=== PATIENT | male | born 1975 | race Caucasian/White ===

== ENCOUNTER 2020-11-24 15:52 | Inpatient (IN) | payer OTHER ==
--- NOTE | 2020-11-24 17:46 | XR ---
EXAMINATION TYPE: XR chest 2V DATE OF EXAM: 11/24/2020 COMPARISON: NONE HISTORY: Short of breath TECHNIQUE: 2 views FINDINGS: There is diffuse pulmonary interstitial and airspace edema. Heart size is normal. There is probably enlargement of the azygos lymph node. There is some blunting of the costophrenic angles. IMPRESSION: Bilateral pneumonia with pleural effusions. Normal sized heart. This could relate to RDS. Heart failure not excluded.
--- NOTE | 2020-11-24 17:53 | ED ---
SOB HPI - General Chief Complaint: Shortness of Breath Stated Complaint: Sent by [facility] - Covid+, Low O2 Time Seen by Provider: 11/24/20 17:30 Source: patient, RN notes reviewed Mode of arrival: ambulatory Limitations: no limitations - History of Present Illness Initial Comments: Patient is a 45-year-old male presented to the emergency department complaining of shortness of breath. He noted that he can initiate an urgent care after testing positive for covid area he noted that while he was there before the urgent care swabbed him and then put his swab on the counter and his tests return positive within several seconds. He noted that he wanted to come to the ER just to get reevaluated. He does have a history of asthma and noted that the last several days he has had a more difficult time catching his breath. He did note that her on this time he-year-old with a temperature drops and the air becomes dry he does have difficulties. He noted that he doesn't follow-up with primary care regularly even though he does have a history of asthma and diabetes. He denied any chest pain or dyspnea on exertion fever fatigue chills nausea vomiting diarrhea constipation - Related Data Allergies Allergy/AdvReac Type Severity Reaction Status Date / Time No Known Allergies Allergy Verified 11/24/20 16:26 Review of Systems ROS Statement: Those systems with pertinent positive or pertinent negative responses have been documented in the HPI. ROS Other: All systems not noted in ROS Statement are negative. Past Medical History Past Medical History: Asthma, Diabetes Mellitus, Hypertension History of Any Multi-Drug Resistant Organisms: None Reported Past Surgical History: No Surgical Hx Reported Smoking Status: Never smoker Past Alcohol Use History: None Reported Past Drug Use History: None Reported General Exam Limitations: no limitations General appearance: alert, in no apparent distress Head exam: Present: atraumatic, normocephalic, normal inspection Eye exam: Present: normal appearance, PERRL, EOMI. Absent: scleral icterus, conjunctival injection, periorbital swelling ENT exam: Present: normal exam, mucous membranes moist Neck exam: Present: normal inspection. Absent: tenderness, meningismus, lymphadenopathy Respiratory exam: Present: normal lung sounds bilaterally, other (Nasal cannula and with 2 L/m following). Absent: respiratory distress, wheezes, rales, rhonchi, stridor Cardiovascular Exam: Present: regular rate, normal rhythm, normal heart sounds. Absent: systolic murmur, diastolic murmur, rubs, gallop, clicks GI/Abdominal exam: Present: soft, normal bowel sounds. Absent: distended, tenderness, guarding, rebound, rigid Extremities exam: Present: normal inspection, full ROM, normal capillary refill. Absent: tenderness, pedal edema, joint swelling, calf tenderness Back exam: Present: normal inspection Neurological exam: Present: alert, oriented X3, CN II-XII intact Psychiatric exam: Present: normal affect, normal mood Skin exam: Present: warm, dry, intact, normal color. Absent: rash Course Vital Signs 11/24/20 11/24/20 16:22 17:38 Temperature 98.8 F Pulse Rate 88 88 Respiratory 18 18 Rate Blood Pressure 133/82 O2 Sat by Pulse 89 L 90 L Oximetry Medical Decision Making - Medical Decision Making 45-year-old male complaining of shortness of breath, after positive Covid test at urgent care. Chest x-ray ordered, basic labs ordered. Nasal cannula 2 L/m ordered. Chest x-ray came back with bilateral pneumonia and 2 small pleural effusions. Coitus was positive. Case discussed with Dr. Cedeño, was decided to admit patient to the hospital for further treatment. - Lab Data Result diagrams: 11/24/20 17:52 11/24/20 17:52 Lab Results 11/24/20 11/24/20 11/24/20 Range/Units 17:52 17:52 18:06 WBC 4.0 (3.8-10.6) k/uL RBC 4.79 (4.30-5.90) m/uL Hgb 14.8 (13.0-17.5) gm/dL Hct 44.2 (39.0-53.0) % MCV 92.3 (80.0-100.0) fL MCH 30.9 (25.0-35.0) pg MCHC 33.5 (31.0-37.0) g/dL RDW 13.2 (11.5-15.5) % Plt Count 190 (150-450) k/uL MPV 8.7 Neutrophils % 80 % Lymphocytes % 14 % Monocytes % 4 % Eosinophils % 1 % Basophils % 1 % Neutrophils # 3.2 (1.3-7.7) k/uL Lymphocytes # 0.6 L (1.0-4.8) k/uL Monocytes # 0.2 (0-1.0) k/uL Eosinophils # 0.0 (0-0.7) k/uL Basophils # 0.0 (0-0.2) k/uL Sodium 126 L (137-145) mmol/L Potassium 4.7 (3.5-5.1) mmol/L Chloride 92 L (98-107) mmol/L Carbon Dioxide 26 (22-30) mmol/L Anion Gap 8 mmol/L BUN 41 H (9-20) mg/dL Creatinine 1.65 H (0.66-1.25) mg/dL Est GFR (CKD-EPI)AfAm 57 (>60 ml/min/1.73 sqM) Est GFR (CKD-EPI)NonAf 50 (>60 ml/min/1.73 sqM) Glucose 398 H (74-99) mg/dL Calcium 7.4 L (8.4-10.2) mg/dL Total Bilirubin 0.4 (0.2-1.3) mg/dL AST 50 (17-59) U/L ALT 24 (4-49) U/L Alkaline Phosphatase 73 (38-126) U/L Total Protein 5.5 L (6.3-8.2) g/dL Albumin 2.9 L (3.5-5.0) g/dL Coronavirus (PCR) Detected A (Not Detectd) - Radiology Data Radiology results: report reviewed, image reviewed Bilateral pneumonia with pleural effusions normal-sized heart. This could relate RDS. Heart failure not excluded. Disposition Clinical Impression: COVID-19, Bilateral pneumonia, Pleural effusion, Dyspnea Disposition: ADMITTED IP TO THIS HOSP Condition: Stable Is patient prescribed a controlled substance at d/c from ED?: No Referrals: Norris Franco MD [Primary Care Provider] - 1-2 days Time of Disposition: 18:45
[2020-11-24 18:02] LABS: Basophils % (A) 1 %; Eosinophils % (A) 1 %; HCT 44.2 % (39.0-53.0); HGB 14.8 gm/dL (13.0-17.5); Lymphocytes # (A) 0.6 k/uL (1.0-4.8); Lymphocytes % (A) 14 %; MCH 30.9 pg (25.0-35.0); MCHC 33.5 g/dL (31.0-37.0); MCV 92.3 fL (80.0-100.0); Mean Platelet Volume 8.7; Monocytes # (A) 0.2 k/uL (0-1.0); Monocytes % (A) 4 %; Neutrophils # (A) 3.2 k/uL (1.3-7.7); Neutrophils % (A) 80 %; Platelet Count 190 k/uL (150-450); RBC 4.79 m/uL (4.30-5.90); RDW 13.2 % (11.5-15.5)
[2020-11-24 18:11] LABS: Albumin 2.9 g/dL (3.5-5.0); Calcium 7.4 mg/dL (8.4-10.2); Potassium 4.7 mmol/L (3.5-5.1); Total Bilirubin 0.4 mg/dL (0.2-1.3); Total Protein 5.5 g/dL (6.3-8.2)
[2020-11-24] MEDS ORDERED: ONDANSETRON 4 MG/2 ML VIAL IVP PRN (18:37)
[2020-11-24] MEDS ORDERED: NALOXONE 0.4 MG/ML 1 ML VIAL IV PRN (18:37)
[2020-11-24] MEDS ORDERED: SODIUM CHLORIDE 0.9% 1,000 ML IV SCH (18:45)
[2020-11-24 20:49] LABS: INR 0.9 (<1.2); Partial Thromboplastin Time 26.8 sec (22.0-30.0); Prothrombin Time 10.1 sec (9.0-12.0)
[2020-11-24] MEDS ORDERED: ENOXAPARIN 40 MG/0.4 ML SYRINGE SQ SCH (21:00)
[2020-11-24 21:02] LABS: D-Dimer 1.17 mg/L FEU (<0.60)
[2020-11-24 21:11] LABS: C Reactive Protein 89.3 mg/L (<10.0); Magnesium 2.3 mg/dL (1.6-2.3)
[2020-11-24] MEDS: ALBUTEROL HFA INHALER INHALATION SCH (21:33)
[2020-11-24 21:57] LABS: Glucose,Whole Blood 340 mg/dL (75-99)
[2020-11-24] MEDS: ASCORBIC ACID 500 MG TAB PO SCH (22:02)
[2020-11-24] MEDS: CHOLECALCIFEROL 25 MCG (1000 IU) TABLET PO SCH (22:03)
[2020-11-24] MEDS: dexAMETHasone 2 MG TAB PO SCH (22:03)
[2020-11-24] MEDS: ACETAMINOPHEN TAB 325 MG TAB PO PRN (22:07)
[2020-11-24] MEDS: INSULIN ASPART (NovoLOG) 100 UNIT/ML VIAL SQ SCH (22:27)
--- NOTE | 2020-11-24 22:56 | CT ---
EXAMINATION TYPE: CT chest angio for PE DATE OF EXAM: 11/24/2020 COMPARISON: None HISTORY: Elevated d-dimer and covid +. CT DLP: 521.1 mGycm Automated exposure control for dose reduction was used. CONTRAST: Performed with IV Contrast, patient injected with 70ml mL of Isovue 370. There are 3-D post processed images. There is extensive interstitial and airspace and nodular infiltrate throughout the lungs. There are b ilateral [id number] pleural effusions. Heart size is normal. There is no pericardial effusion. Thoracic aorta is intact. There is no aneurysm or dissection. There is normal contrast opacification of the pulmonary arteries. There are no filling defects. There are a few enlarged mediastinal and bronchial lymph nodes up to 1.3 cm. The bony thorax is intact. The upper abdominal soft tissues are intact. IMPRESSION: No evidence of pulmonary embolism. Extensive bilateral pulmonary infiltrates and bilateral pleural ef fusions consistent with pneumonia.
[2020-11-24] MEDS: MELATONIN 5 MG TABLET PO SCH (23:29)
[2020-11-25] MEDS ORDERED: ALBUTEROL HFA INHALER INHALATION SCH (02:00)
[2020-11-25 03:00] LABS: Ferritin 937.8 ng/mL (22.0-322.0)
[2020-11-25 03:03] LABS: Basophils % (A) 0 %; Eosinophils % (A) 0 %; HCT 42.6 % (39.0-53.0); HGB 14.2 gm/dL (13.0-17.5); Lymphocytes # (A) 0.3 k/uL (1.0-4.8); Lymphocytes % (A) 8 %; MCH 30.8 pg (25.0-35.0); MCHC 33.3 g/dL (31.0-37.0); MCV 92.3 fL (80.0-100.0); Monocytes # (A) 0.1 k/uL (0-1.0); Monocytes % (A) 4 %; Neutrophils # (A) 3.5 k/uL (1.3-7.7); Neutrophils % (A) 87 %; Platelet Count 158 k/uL (150-450); RBC 4.62 m/uL (4.30-5.90); RDW 13.2 % (11.5-15.5)
[2020-11-25 03:31] LABS: D-Dimer 0.91 mg/L FEU (<0.60)
[2020-11-25] MEDS: INSULIN ASPART (NovoLOG) 100 UNIT/ML VIAL SQ SCH ×4 (06:32→21:28)
[2020-11-25 06:37] LABS: Glucose,Whole Blood 351 mg/dL (75-99)
[2020-11-25] MEDS: ACETAMINOPHEN TAB 325 MG TAB PO PRN ×3 (06:45→20:33)
--- NOTE | 2020-11-25 08:09 | XR ---
EXAMINATION TYPE: XR chest 1V DATE OF EXAM: 11/25/2020 COMPARISON: 11/24/2020 HISTORY: 45 year-old male shortness of breath TECHNIQUE: Single frontal view of the chest is obtained. FINDINGS: Heart normal size. The lateral airspace disease, right greater than left lung with a small left effus ion, not significantly changed. IMPRESSION: Right greater than left diffuse bilateral airspace disease and a small left effusion. No significant change.
[2020-11-25] MEDS: CHOLECALCIFEROL 25 MCG (1000 IU) TABLET PO SCH (08:18)
[2020-11-25] MEDS: ASCORBIC ACID 500 MG TAB PO SCH ×3 (08:18→21:41)
[2020-11-25] MEDS: dexAMETHasone 2 MG TAB PO SCH (08:18)
[2020-11-25] MEDS ORDERED: FUROSEMIDE 10 MG/ML 4 ML VIAL IV STA (08:27)
[2020-11-25] MEDS: ALBUTEROL HFA INHALER INHALATION SCH ×4 (08:49→20:03)
--- NOTE | 2020-11-25 09:19 | P.CNPUL ---
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, patient was hypoxic noted to have a saturation of 88-89% was admitted into the hospital with shortness of breath, significant labs are sodium of 126 BUN/creatinine is 4111.65, d-dimer is elevated, bilateral pneumonia with pleural effusion seen on chest x-ray, bilateral pleural effusion and extensive bilateral pulmonary infiltrate seen consistent with pneumonia on the computed tomography scan negative for pulmonary embolism, chest x-ray performed today continue show diffuse disease right more than the left, currently patient is on airvo 40 L, he is comfortable on that with the saturation 94-95% Review of Systems All systems: negative Past Medical History Past Medical History: Asthma, Diabetes Mellitus, Hypertension History of Any Multi-Drug Resistant Organisms: None Reported Past Surgical History: No Surgical Hx Reported Past Anesthesia/Blood Transfusion Reactions: No Reported Reaction Past Psychological History: No Psychological Hx Reported Smoking Status: Never smoker Past Alcohol Use History: None Reported Past Drug Use History: None Reported - Past Family History Father Family Medical History: No Reported History Mother Additional Family Medical History / Comment(s): glaucoma, manic depression, 2006 Medications and Allergies Home Medications Medication Instructions Recorded Confirmed Type No Known Home Medications 11/24/20 11/24/20 History Allergies Allergy/AdvReac Type Severity Reaction Status Date / Time No Known Allergies Allergy Verified 11/24/20 18:56 Physical Exam Vitals: Vital Signs Temp Pulse Pulse Resp BP BP Pulse Ox 11/25/20 08:09 98.3 F 78 20 116/73 90 L 11/25/20 03:23 98.5 F 84 18 116/76 92 L 11/25/20 02:00 95 18 11/25/20 00:00 100.1 F H 18 11/24/20 22:56 101.6 F H 95 18 137/80 92 L 11/24/20 22:04 102.2 F H 103 H 24 144/82 94 L 11/24/20 18:48 89 18 139/94 93 L 11/24/20 17:38 88 18 90 L 11/24/20 16:22 98.8 F 88 18 133/82 89 L Intake and Output 11/24/20 11/25/20 11/25/20 22:59 06:59 14:59 Intake Total 150 Balance 150 Intake: IV 150 Sodium Chloride 0.9% 1, 150 000 ml @ 75 mls/hr IV . [id number] [facility] Rx#:[id number] Other: Voiding Method Toilet Toilet Weight 92.986 kg 93 kg - Constitutional General appearance: average body habitus, cooperative, disheveled - EENT Eyes: EOMI, PERRLA - Neck Neck: normal ROM Carotids: bilateral: upstroke normal Thyroid: bilateral: normal size - Respiratory Respiratory: bilateral: diminished, rales - Cardiovascular Rhythm: regular Heart sounds: normal: S1, S2 - Gastrointestinal General gastrointestinal: normal bowel sounds - Neurologic Neurologic: CNII-XII intact - Musculoskeletal Musculoskeletal: gait normal, generalized weakness, strength equal bilaterally - Psychiatric Psychiatric: A&O x's 3, appropriate affect, intact judgment & insight Results - Laboratory Findings CBC and BMP: 11/25/20 02:40 11/24/20 17:52 PT/INR, D-dimer PT 10.1 sec (9.0-12.0) 11/24/20 20:27 INR 0.9 (<1.2) 11/24/20 20:27 D-Dimer 0.91 mg/L FEU (<0.60) H 11/25/20 02:40 Abnormal lab findings: Abnormal Labs 11/24/20 11/24/20 11/24/20 17:52 17:52 17:52 Lymphocytes # 0.6 L Fibrinogen D-Dimer Sodium 126 L Chloride 92 L BUN 41 H Creatinine 1.65 H Glucose 398 H POC Glucose (mg/dL) Calcium 7.4 L Ferritin 937.8 H Lactate Dehydrogenase 823 H Troponin I C-Reactive Protein 89.3 H Total Protein 5.5 L Albumin 2.9 L Procalcitonin Coronavirus (PCR) 11/24/20 11/24/20 11/24/20 17:52 18:06 20:27 Lymphocytes # Fibrinogen 657 H D-Dimer 1.17 H Sodium Chloride BUN Creatinine Glucose POC Glucose (mg/dL) Calcium Ferritin Lactate Dehydrogenase Troponin I C-Reactive Protein Total Protein Albumin Procalcitonin 0.54 H Coronavirus (PCR) Detected A 11/24/20 11/24/20 11/24/20 20:27 21:55 23:32 Lymphocytes # Fibrinogen D-Dimer Sodium Chloride BUN Creatinine Glucose POC Glucose (mg/dL) 340 H Calcium Ferritin Lactate Dehydrogenase Troponin I 0.063 H* 0.079 H* C-Reactive Protein Total Protein Albumin Procalcitonin Coronavirus (PCR) 11/25/20 11/25/20 11/25/20 02:40 02:40 02:40 Lymphocytes # 0.3 L Fibrinogen 575 H D-Dimer 0.91 H Sodium Chloride BUN Creatinine Glucose POC Glucose (mg/dL) Calcium Ferritin Lactate Dehydrogenase Troponin I 0.095 H* C-Reactive Protein Total Protein Albumin Procalcitonin Coronavirus (PCR) 11/25/20 06:29 Lymphocytes # Fibrinogen D-Dimer Sodium Chloride BUN Creatinine Glucose POC Glucose (mg/dL) 351 H Calcium Ferritin Lactate Dehydrogenase Troponin I C-Reactive Protein Total Protein Albumin Procalcitonin Coronavirus (PCR) - Diagnostic Findings Chest x-ray: report reviewed, image reviewed CT scan - chest: report reviewed, image reviewed Assessment and Plan Assessment: Acute hypoxic respiratory failure due to covert 19 pneumonia Associated bacterial pneumonia secondary cannot be excluded Acute kidney injury Uncontrolled diabetes Elevated d-dimer History of hypertension hypertensive cardiovascular disease Bilateral pleural effusion Plan: Continue patient on high flow oxygen with airvo, aim for saturation 90% and above Decadron 6 mg IV q12 Elevated d-dimer may very well be related to mitral thromboembolism we will increase the Decadron to 40 mg IV every 12 IV REMdesivir Convalescent plasma Monitor clinical course closely further recommendations pending plan of care as per clinical response of the patient Monitor renal functions closely if creatinine continued to rise may need to stop the VERONA inhibitor Time with Patient: Greater than 30
[2020-11-25] MEDS: DEXAMETHASONE SOD PHOSPHATE 10 MG/ML 1 ML VIAL IV SCH ×2 (09:36→21:41)
[2020-11-25] MEDS: AZITHROMYCIN 500 MG TAB PO SCH (09:45)
[2020-11-25] MEDS: METOPROLOL TARTRATE 12.5 MG TAB PO SCH ×2 (09:45→21:40)
[2020-11-25] MEDS: ASPIRIN 81 MG PO SCH (09:45)
[2020-11-25] MEDS: SPIRONOLACTONE 25 MG TAB PO SCH (09:45)
[2020-11-25] MEDS: ENOXAPARIN 40 MG/0.4 ML SYRINGE SQ SCH ×2 (09:45→21:41)
--- NOTE | 2020-11-25 10:13 | P.HPIM ---
History of Present Illness H&P Date: 11/25/20 (0800) Chief Complaint: Shortness of breath with associated nonproductive cough for five day durati 45-year-old male presented to the emergency department with shortness of breath with associated productive cough for five day duration. [facility] found to have a positive Cov[facility] tests, went to the emergency department for further diagnostic workup chest x-ray revealed bilateral pneumonia with pleural effusions, positive Covid tests, elevated inflammatory markers. Patient has significant medical history of asthma, diabetes mellitus type II [id number], hypertension, and morbid obesity. Patient endorses shortness of breath at rest, dyspnea with exertion, chest discomfort, fever, chills, nausea and diarrhea. Patient currently on airvo at 40 liters with oxygen saturation's of 94 to 95%. Review of Systems Constitutional: Reports fatigue, Reports fever, Reports weakness Ears, nose, mouth and throat: Reports headache Cardiovascular: Reports dyspnea on exertion, Reports shortness of breath Respiratory: Reports cough (Nonproductive), Reports pain on inspiration Gastrointestinal: Reports diarrhea, Reports nausea Musculoskeletal: Reports muscle weakness Neurological: Reports weakness Psychiatric: Reports insomnia Past Medical History Past Medical History: Asthma, Diabetes Mellitus, Hypertension History of Any Multi-Drug Resistant Organisms: None Reported Past Surgical History: No Surgical Hx Reported Past Anesthesia/Blood Transfusion Reactions: No Reported Reaction Past Psychological History: No Psychological Hx Reported Smoking Status: Never smoker Past Alcohol Use History: None Reported Past Drug Use History: None Reported - Past Family History Father Family Medical History: No Reported History Mother Family Medical History: No Reported History Additional Family Medical History / Comment(s): glaucoma, manic depression, 2006 Medications and Allergies Home Medications and Allergies Comment(s): Medications and allergies reviewed Home Medications Medication Instructions Recorded Confirmed Type No Known Home Medications 11/24/20 11/24/20 History Allergies Allergy/AdvReac Type Severity Reaction Status Date / Time No Known Allergies Allergy Verified 11/24/20 18:56 Physical Exam Vitals: Vital Signs Temp Pulse Pulse Resp BP BP Pulse Ox 11/25/20 08:09 98.3 F 78 20 116/73 90 L 11/25/20 03:23 98.5 F 84 18 116/76 92 L 11/25/20 02:00 95 18 11/25/20 00:00 100.1 F H 18 11/24/20 22:56 101.6 F H 95 18 137/80 92 L 11/24/20 22:04 102.2 F H 103 H 24 144/82 94 L 11/24/20 18:48 89 18 139/94 93 L 11/24/20 17:38 88 18 90 L 11/24/20 16:22 98.8 F 88 18 133/82 89 L Intake and Output 11/24/20 11/25/20 11/25/20 22:59 06:59 14:59 Intake Total 150 Balance 150 Intake: IV 150 Sodium Chloride 0.9% 1, 150 000 ml @ 75 mls/hr IV . [id number] [facility] Rx#:[id number] Other: Voiding Method Toilet Toilet Weight 92.986 kg 93 kg - Constitutional Moderate distress General appearance: cooperative - EENT Eyes: edentulous, PERRLA ENT: pharyngeal erythema Ears: bilateral: normal - Neck Neck: normal ROM Carotids: bilateral: upstroke normal Thyroid: bilateral: normal size - Respiratory Respiratory: bilateral: rales (Course posterior lung roblero), rhonchi (Anterior lung roblero) - Cardiovascular Normal sinus rhythm Heart rate: 74 Rhythm: regular Heart sounds: normal: S1, S2 radial pulse Peripheral Pulses: bilateral: Normal dorsalis pedis Peripheral Pulses: bilateral: Normal - Gastrointestinal General gastrointestinal: normal bowel sounds - Integumentary Integumentary: decreased turgor - Neurologic Neurologic: CNII-XII intact - Musculoskeletal Musculoskeletal: generalized weakness - Psychiatric Psychiatric: A&O x's 3, appropriate affect, intact judgment & insight Results CBC & Chem 7: 11/25/20 02:40 11/24/20 17:52 Labs: Abnormal Lab Results - Last 24 Hours (Table) 11/24/20 11/24/20 11/24/20 Range/Units 17:52 17:52 17:52 Lymphocytes # 0.6 L (1.0-4.8) k/uL Fibrinogen (200-500) mg/dL D-Dimer (<0.60) mg/L FEU Sodium 126 L (137-145) mmol/L Chloride 92 L (98-107) mmol/L BUN 41 H (9-20) mg/dL Creatinine 1.65 H (0.66-1.25) mg/dL Glucose 398 H (74-99) mg/dL POC Glucose (mg/dL) (75-99) mg/dL Calcium 7.4 L (8.4-10.2) mg/dL Ferritin 937.8 H (22.0-322.0) ng/mL Lactate Dehydrogenase 823 H (313-618) U/L Troponin I (0.000-0.034) ng/mL C-Reactive Protein 89.3 H (<10.0) mg/L Total Protein 5.5 L (6.3-8.2) g/dL Albumin 2.9 L (3.5-5.0) g/dL Procalcitonin (0.02-0.09) ng/mL Coronavirus (PCR) (Not Detectd) 11/24/20 11/24/20 11/24/20 Range/Units 17:52 18:06 20:27 Lymphocytes # (1.0-4.8) k/uL Fibrinogen 657 H (200-500) mg/dL D-Dimer 1.17 H (<0.60) mg/L FEU Sodium (137-145) mmol/L Chloride (98-107) mmol/L BUN (9-20) mg/dL Creatinine (0.66-1.25) mg/dL Glucose (74-99) mg/dL POC Glucose (mg/dL) (75-99) mg/dL Calcium (8.4-10.2) mg/dL Ferritin (22.0-322.0) ng/mL Lactate Dehydrogenase (313-618) U/L Troponin I (0.000-0.034) ng/mL C-Reactive Protein (<10.0) mg/L Total Protein (6.3-8.2) g/dL Albumin (3.5-5.0) g/dL Procalcitonin 0.54 H (0.02-0.09) ng/mL Coronavirus (PCR) Detected A (Not Detectd) 11/24/20 11/24/20 11/24/20 Range/Units 20:27 21:55 23:32 Lymphocytes # (1.0-4.8) k/uL Fibrinogen (200-500) mg/dL D-Dimer (<0.60) mg/L FEU Sodium (137-145) mmol/L Chloride (98-107) mmol/L BUN (9-20) mg/dL Creatinine (0.66-1.25) mg/dL Glucose (74-99) mg/dL POC Glucose (mg/dL) 340 H (75-99) mg/dL Calcium (8.4-10.2) mg/dL Ferritin (22.0-322.0) ng/mL Lactate Dehydrogenase (313-618) U/L Troponin I 0.063 H* 0.079 H* (0.000-0.034) ng/mL C-Reactive Protein (<10.0) mg/L Total Protein (6.3-8.2) g/dL Albumin (3.5-5.0) g/dL Procalcitonin (0.02-0.09) ng/mL Coronavirus (PCR) (Not Detectd) 11/25/20 11/25/20 11/25/20 Range/Units 02:40 02:40 02:40 Lymphocytes # 0.3 L (1.0-4.8) k/uL Fibrinogen 575 H (200-500) mg/dL D-Dimer 0.91 H (<0.60) mg/L FEU Sodium (137-145) mmol/L Chloride (98-107) mmol/L BUN (9-20) mg/dL Creatinine (0.66-1.25) mg/dL Glucose (74-99) mg/dL POC Glucose (mg/dL) (75-99) mg/dL Calcium (8.4-10.2) mg/dL Ferritin (22.0-322.0) ng/mL Lactate Dehydrogenase (313-618) U/L Troponin I 0.095 H* (0.000-0.034) ng/mL C-Reactive Protein (<10.0) mg/L Total Protein (6.3-8.2) g/dL Albumin (3.5-5.0) g/dL Procalcitonin (0.02-0.09) ng/mL Coronavirus (PCR) (Not Detectd) 11/25/20 Range/Units 06:29 Lymphocytes # (1.0-4.8) k/uL Fibrinogen (200-500) mg/dL D-Dimer (<0.60) mg/L FEU Sodium (137-145) mmol/L Chloride (98-107) mmol/L BUN (9-20) mg/dL Creatinine (0.66-1.25) mg/dL Glucose (74-99) mg/dL POC Glucose (mg/dL) 351 H (75-99) mg/dL Calcium (8.4-10.2) mg/dL Ferritin (22.0-322.0) ng/mL Lactate Dehydrogenase (313-618) U/L Troponin I (0.000-0.034) ng/mL C-Reactive Protein (<10.0) mg/L Total Protein (6.3-8.2) g/dL Albumin (3.5-5.0) g/dL Procalcitonin (0.02-0.09) ng/mL Coronavirus (PCR) (Not Detectd) Comments: Echocardiogram pending Chest x-ray: report reviewed CT scan - chest: report reviewed Thrombosis Risk Factor Assmnt - Choose All That Apply Any of the Below Risk Factors Present?: Yes Each Factor Represents 1 point: Age 41-60 years, Obesity (BMI >25) Other congenital or acquired thrombophilia - If yes, enter type in comment: No Thrombosis Risk Factor Assessment Total Risk Factor Score: 2 Thrombosis Risk Factor Assessment Level: Low Risk Assessment and Plan Assessment: Acute hypoxic respiratory failure due to Covid 19 pneumonia possible bacteria pneumonia acute kidney injury diabetes mellitus type two elevated inflammatory markers bilateral pleural effusions Plan: Covid 19 pneumonia continue corticosteroids, vitamin supplements, IV remdesivir, convalescent plasma; consultation with pulmonary critical care for recommendations and treatment plan Acute kidney injury monitor renal function Diabetes mellitus type II high-intensity sliding scale Elevated inflammatory markers continue to trend Elevated troponins consultation with cardiology for recommendations and treatment plan with echocardiogram pending Possible secondary bacterial pneumonia will monitor for pneumonia of bacterial in origin . Hypertension continue recommendations from cardiology standpoint Continue medical management full code Prognosis critical at this time will continue to monitor closely Time with Patient: Greater than 30
[2020-11-25 10:39] LABS: African American GFR (CKD) 51.5 (60.0-200.0); Albumin 3.1 g/dL (3.80-4.90); Albumin/Globulin Ratio 2.07 (1.60-3.17); Anion Gap 12.1 mmol/L (4.00-12.00); BUN/Creat Ratio 25.56 Ratio (12.00-20.00); Calcium 7.4 mg/dL (8.7-10.3); Carbon Dioxide 22.9 mmol/L (21.6-31.8); Ferritin 1130.1 ng/mL (22.0-322.0); Globulin 1.5 g/dL (1.6-3.3); Magnesium 2.3 mg/dL (1.5-2.4); Non-African American GFR(CKD) 44.5 (60.0-200.0); Potassium 5.2 mmol/L (3.5-5.5); Total Bilirubin 0.3 mg/dL (0.2-1.2); Total Protein 4.6 g/dL (6.2-8.2)
[2020-11-25] MEDS ORDERED: REMDESIVIR 200 MG in SODIUM CHLORIDE 0.9% 250 ML IVPB ONE (11:00)
--- NOTE | 2020-11-25 11:00 | ECHOF ---
Referral Reason:shortness of breath/covid-19/ increased trop MEASUREMENTS -------- HEIGHT: 172.7 cm WEIGHT: 94.3 kg BP: RVIDd: 2.2 cm (< 3.3) IVSd: 1.0 cm (0.6 - 1.1) LVIDd: 5.4 cm (3.9 - 5.3) LVPWd: 1.4 cm (0.6 - 1.1) IVSs: 1.3 cm LVIDs: 4.8 cm LVPWs: 1.6 cm LAESV Index (A-L): 30.68 ml/m Ao Diam: 2.7 cm (2.0 - 3.7) AV Cusp: 2.0 cm (1.5 - 2.6) LA Diam: 3.1 cm (2.7 - 3.8) MV EXCURSION: 17.701 mm (> 18.000) MV EF SLOPE: 127 mm/s (70 - 150) EPSS: 1.8 cm MV E Ferny: 1.15 m/s MV DecT: 151 ms MV A Ferny: 0.43 m/s MV E/A Ratio: 2.70 RAP: 5.00 mmHg RVSP: 14.73 mmHg FINDINGS -------- This was a technically difficult study with suboptimal views. The left ventricular size is normal. There is mild concentric left ventricular hypertrophy. There is severe global hypokinesis of LV . Overall left ventricular systolic function is severely impair ed with, an EF between 20 - 25 %. Normal LAP Grade 1 Diastolic Dysfunction. The right ventricle is normal in size. LA is midly dilated 29-33ml/m2. The right atrial size is normal. Lumason used The aortic valve is trileaflet and appears structurally normal. The mitral valve is normal. Mild mitral regurgitation is present. The tricuspid valve appears structurally normal. Mild tricuspid regurgitation present. Right vent ricular systolic pressure is normal at < 35 mmHg. There is no pulmonic regurgitation present. The aortic root size is normal. Normal inferior vena cava with normal inspiratory collapse consistent with estimated right atrial pre ssure of 5 mmHg. There is a trivial pericardial effusion present. CONCLUSIONS -------- 1. The left ventricular size is normal. 2. There is mild concentric left ventricular hypertrophy. 3. There is severe global hypokinesis of LV . 4. Overall left ventricular systolic function is severely impaired with, an EF between 20 - 25 %. 5. Normal LAP Grade 1 Diastolic Dysfunction. 6. LA is midly dilated 29-33ml/m2. 7. Mild mitral regurgitation is present. 8. Mild tricuspid regurgitation present. 9. There is a trivial pericardial effusion present. [employer] M[employer] OPERATOR: Latonya Meier RDCS
--- NOTE | 2020-11-25 11:35 | P.CRDCN ---
History of Present Illness Consult date: 11/25/20 History of present illness: CHIEF COMPLAINT: elevated troponin HISTORY OF PRESENT ILLNESS: This is a 45-year-old male with a past medical history significant for hypertension, asthma, and diabetes. patient states he does not take any medications for his hypertension or diabetes. He reports his mother was a "pill popper" and he is hesitant taking any kind of medication. 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 We have been asked to see the patient in consultation for elevated troponins. Patient examined this morning at the bedside. Patient states he has been feeling short of breath and experiencing a cough for the last 2-3 days. He went to urgent care and tested positive for Covid. He presented to the hospital with continued shortness of breath. patient denies any chest pain or pressure. He denies dizziness or lightheadedness. He currently denies shortness of breath. He is on Airvo at the time of examination. He denies nicotine use. He denies alcohol use. He denies any family history of coronary artery disease. DIAGNOSTICS: EKG reveals sinus mechanism with nonspecific ST-T wave changes Chest xray bilateral pneumonia with pleural effusions Chest CTA: Negative for PE Laboratory data: WBC 4.0. Hemoglobin 14.2. platelet count 158. Sodium 128. Potassium 5.2. BUN 46. Creatinine 1.8. troponin 0.063. 0.079. 0.095. Current home cardiac medications include: none REVIEW OF SYSTEMS: At the time of my exam: CONSTITUTIONAL: Denies fever or chills. HEENT: Denies blurred vision, vision changes, or eye pain. Denies hemoptysis CARDIOVASCULAR: Denies chest pain, orthopnea, PND or palpitations RESPIRATORY: No shortness of breath. GASTROINTESTINAL: Denies abdominal pain. Denies nausea or vomiting. HEMATOLOGIC: Denies bleeding disorders. GENITOURINARY: Denies any blood in urine. SKIN: Denies pruitis. Denies rash. PHYSICAL EXAM: VITAL SIGNS: Reviewed. GENERAL: Well-developed in no acute distress. HEENT: Head is normocephalic. Pupils are equal, round. Sclerae anicteric. Mucous membranes of the mouth are moist. Neck supple. No JVD or thyromegaly LUNGS: Respirations even and unlabored. Lungs coarse with scattered rhonchi HEART: Regular rate and rhythm. S1 and S2 heard. ABDOMEN: Soft. Nondistended. Nontender. EXTREMITIES: Normal range of motion. No clubbing or cyanosis. Peripheral pulses intact. No lower extremity edema NEUROLOGIC: Awake and alert. Oriented x 3. 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 Await final echo results Lasix 40 mg IV 1 dose Add Aldactone 25 mg daily Begin aspirin 81 mg daily, metoprolol 12.5 mg twice a day, and 2.5 mg lisinopril daily Further recommendations pending patient's course Nurse practitioner note has been reviewed by physician. Signing provider agrees with the documented findings, assessment, and plan of care. Past Medical History Past Medical History: Asthma, Diabetes Mellitus, Hypertension History of Any Multi-Drug Resistant Organisms: None Reported Past Surgical History: No Surgical Hx Reported Past Anesthesia/Blood Transfusion Reactions: No Reported Reaction Past Psychological History: No Psychological Hx Reported Smoking Status: Never smoker Past Alcohol Use History: None Reported Past Drug Use History: None Reported - Past Family History Father Family Medical History: No Reported History Mother Family Medical History: No Reported History Additional Family Medical History / Comment(s): glaucoma, manic depression, 2006 Medications and Allergies Home Medications Medication Instructions Recorded Confirmed Type No Known Home Medications 11/24/20 11/24/20 History Allergies Allergy/AdvReac Type Severity Reaction Status Date / Time No Known Allergies Allergy Verified 11/24/20 18:56 Physical Exam Vitals: Vital Signs Temp Pulse Pulse Resp BP BP Pulse Ox 11/25/20 11:13 98.3 F 68 20 105/71 97 11/25/20 08:09 98.3 F 78 20 116/73 90 L 11/25/20 03:23 98.5 F 84 18 116/76 92 L 11/25/20 02:00 95 18 11/25/20 00:00 100.1 F H 18 11/24/20 22:56 101.6 F H 95 18 137/80 92 L 11/24/20 22:04 102.2 F H 103 H 24 144/82 94 L 11/24/20 18:48 89 18 139/94 93 L 11/24/20 17:38 88 18 90 L 11/24/20 16:22 98.8 F 88 18 133/82 89 L Intake and Output 11/24/20 11/25/20 11/25/20 22:59 06:59 14:59 Intake Total 150 Balance 150 Intake: IV 150 Sodium Chloride 0.9% 1, 150 000 ml @ 75 mls/hr IV . [id number] [facility] Rx#:[id number] Other: Voiding Method Toilet Toilet Weight 92.986 kg 93 kg Results 11/25/20 02:40 11/25/20 02:40 Cardiac Enzymes 11/24/20 11/24/20 11/24/20 Range/Units 17:52 17:52 20:27 AST 50 (17-59) U/L Lactate Dehydrogenase 823 H (313-618) U/L Troponin I 0.063 H* (0.000-0.034) ng/mL 11/24/20 11/25/20 11/25/20 Range/Units 23:32 02:40 02:40 AST 58 H (17-59) U/L Lactate Dehydrogenase 380 H (313-618) U/L Troponin I 0.079 H* 0.095 H* (0.000-0.034) ng/mL Coagulation 11/24/20 Range/Units 20:27 PT 10.1 (9.0-12.0) sec APTT 26.8 (22.0-30.0) sec CBC 11/24/20 11/25/20 Range/Units 17:52 02:40 WBC 4.0 4.0 (3.8-10.6) k/uL RBC 4.79 4.62 (4.30-5.90) m/uL Hgb 14.8 14.2 (13.0-17.5) gm/dL Hct 44.2 42.6 (39.0-53.0) % Plt Count 190 158 (150-450) k/uL Comprehensive Metabolic Panel 11/24/20 11/25/20 Range/Units 17:52 02:40 Sodium 126 L 128 L (137-145) mmol/L Potassium 4.7 5.2 (3.5-5.1) mmol/L Chloride 92 L 93 L (98-107) mmol/L Carbon Dioxide 26 22.9 (22-30) mmol/L BUN 41 H 46.0 H (9-20) mg/dL Creatinine 1.65 H 1.8 H (0.66-1.25) mg/dL Glucose 398 H 305 H (74-99) mg/dL Calcium 7.4 L 7.4 L (8.4-10.2) mg/dL AST 50 58 H (17-59) U/L ALT 24 26 (4-49) U/L Alkaline Phosphatase 73 69 (38-126) U/L Total Protein 5.5 L 4.6 L (6.3-8.2) g/dL Albumin 2.9 L 3.10 L (3.5-5.0) g/dL Current Medications Generic Name Dose Route Start Last Admin Trade Name Freq PRN Reason Stop Dose Admin Acetaminophen 650 mg 11/24/20 20:27 11/25/20 06:45 Acetaminophen Tab 325 Mg Tab PO 650 mg Q4HR PRN Administration Fever>101 Albuterol Sulfate 2 puff 11/25/20 08:00 11/25/20 08:49 Albuterol Hfa Inhaler INHALATION 2 puff RT-QID HEMANTH Administration Ascorbic Acid 1,000 mg 11/24/20 22:00 11/25/20 08:18 Ascorbic Acid 500 Mg Tab PO 1,000 mg TID HEMANTH Administration Aspirin 81 mg 11/25/20 09:00 11/25/20 09:45 Aspirin 81 Mg PO 81 mg DAILY HEMANTH Administration Azithromycin 500 mg 11/25/20 09:45 11/25/20 09:45 Azithromycin 500 Mg Tab PO 500 mg DAILY HEMANTH Administration Cholecalciferol 50 mcg 11/24/20 21:00 11/25/20 08:18 Cholecalciferol 25 Mcg (1000 Iu) Tablet PO 50 mcg DAILY HEMANTH Administration Dexamethasone Sodium Phosphate 6 mg 11/25/20 09:00 11/25/20 09:36 Dexamethasone Sod Phosphate 10 Mg/Ml 1 Ml Vial IV Not Given Q12H HEMANTH Enoxaparin Sodium 40 mg 11/25/20 09:00 11/25/20 09:45 Enoxaparin 40 Mg/0.4 Ml Syringe SQ 40 mg BID HEMANTH Administration Remdesivir 100 mg/ Sodium 250 mls @ 250 mls/hr 11/26/20 11:00 Chloride IVPB 11/29/20 11:59 DAILY@1100 HEMANTH Remdesivir 200 mg/ Sodium 250 mls @ 250 mls/hr 11/25/20 11:00 11/25/20 11:20 Chloride IVPB 11/25/20 11:59 250 mls/hr ONCE ONE Administration Protocol Ceftriaxone Sodium 1 gm/ 50 mls @ 100 mls/hr 11/25/20 09:45 11/25/20 09:44 Sodium Chloride IVPB 100 mls/hr Q24HR HEMANTH Administration Insulin Aspart 0 unit 11/24/20 21:00 11/25/20 06:32 Insulin Aspart (Novolog) 100 Unit/Ml Vial SQ 6 unit ACHS HEMANTH Administration Protocol Lisinopril 2.5 mg 11/25/20 09:00 11/25/20 09:45 Lisinopril 2.5 Mg Tab PO 2.5 mg DAILY HEMANTH Administration Melatonin 5 mg 11/24/20 22:15 11/24/20 23:29 Melatonin 5 Mg Tablet PO 5 mg HS HEMANTH Administration Metoprolol Tartrate 12.5 mg 11/25/20 09:00 11/25/20 09:45 Metoprolol Tartrate 12.5 Mg Tab PO 12.5 mg BID HEMANTH Administration Naloxone HCl 0.2 mg 11/24/20 18:37 Naloxone 0.4 Mg/Ml 1 Ml Vial IV Q2M PRN Opioid Reversal Spironolactone 25 mg 11/25/20 09:00 11/25/20 09:45 Spironolactone 25 Mg Tab PO 25 mg DAILY HEMANTH Administration Zinc Sulfate 220 mg 11/25/20 21:00 Zinc Sulfate 220 Mg Cap PO DAILY HEMANTH Intake and Output 11/24/20 11/25/20 11/25/20 22:59 06:59 14:59 Intake Total 150 Balance 150 Intake: IV 150 Sodium Chloride 0.9% 1, 150 000 ml @ 75 mls/hr IV . [id number] [facility] Rx#:[id number] Other: Voiding Method Toilet Toilet Weight 92.986 kg 93 kg 11/25/20 02:40 11/25/20 02:40
[2020-11-25 11:39] LABS: C Reactive Protein 10.4 mg/dL (0.0-0.8)
[2020-11-25 12:12] LABS: Glucose,Whole Blood 376 mg/dL (75-99)
[2020-11-25 16:53] LABS: Glucose,Whole Blood 398 mg/dL (75-99)
[2020-11-25 20:36] LABS: Glucose,Whole Blood 447 mg/dL (75-99)
[2020-11-25] MEDS ORDERED: INSULIN REGULAR 100 UNIT/ML VIAL SQ ONE (20:49)
[2020-11-25] MEDS: MELATONIN 5 MG TABLET PO SCH (21:41)
[2020-11-25] MEDS: INSULIN REGULAR 100 UNIT in SODIUM CHLORIDE 0.9% 100 ML IV SCH (21:51)
[2020-11-25] MEDS: ZINC SULFATE 220 MG CAP PO SCH (21:54)
[2020-11-25 22:11] LABS: Calcium 6.7 mg/dL (8.4-10.2); Potassium 4.8 mmol/L (3.5-5.1)
[2020-11-25 22:34] LABS: Glucose,Whole Blood 333 mg/dL (75-99)
[2020-11-25 23:05] LABS: Glucose,Whole Blood 229 mg/dL (75-99)
[2020-11-26 01:23] LABS: Glucose,Whole Blood 92 mg/dL (75-99)
[2020-11-26] MEDS ORDERED: ALBUTEROL HFA INHALER INHALATION PRN (01:42)
[2020-11-26 02:29] LABS: Glucose,Whole Blood 102 mg/dL (75-99)
[2020-11-26 03:28] LABS: Glucose,Whole Blood 122 mg/dL (75-99)
[2020-11-26 04:16] LABS: Calcium 6.9 mg/dL (8.4-10.2); Potassium 4.6 mmol/L (3.5-5.1)
[2020-11-26 04:45] LABS: Glucose,Whole Blood 132 mg/dL (75-99)
[2020-11-26 06:47] LABS: Glucose,Whole Blood 161 mg/dL (75-99)
--- NOTE | 2020-11-26 07:31 | XR ---
EXAMINATION TYPE: XR chest 1V DATE OF EXAM: 11/26/2020 COMPARISON: 11/25/2020 INDICATION: Short of breath Covid pneumonia TECHNIQUE: Single frontal view of the chest is obtained. FINDINGS: The heart size is normal. The pulmonary vasculature is normal. There is diffuse increased lung markings present bilaterally. Findings are nonspecific although sligh tly improved from comparison. Findings can BE compatible with atypical pneumonia. IMPRESSION: 1. Patchy bilateral infiltrates slightly improved over the interval. Findings can be compatible with atypical pneumonia.
[2020-11-26] MEDS: ZINC SULFATE 220 MG CAP PO SCH (08:18)
[2020-11-26] MEDS: DEXAMETHASONE SOD PHOSPHATE 10 MG/ML 1 ML VIAL IV SCH ×2 (08:19→20:00)
[2020-11-26] MEDS: ASPIRIN 81 MG PO SCH (08:19)
[2020-11-26] MEDS: AZITHROMYCIN 500 MG TAB PO SCH (08:19)
[2020-11-26] MEDS: METOPROLOL TARTRATE 12.5 MG TAB PO SCH ×2 (08:19→19:59)
[2020-11-26] MEDS: ASCORBIC ACID 500 MG TAB PO SCH ×3 (08:19→19:59)
[2020-11-26] MEDS: SPIRONOLACTONE 25 MG TAB PO SCH (08:19)
[2020-11-26] MEDS: CHOLECALCIFEROL 25 MCG (1000 IU) TABLET PO SCH (08:19)
[2020-11-26] MEDS: ENOXAPARIN 40 MG/0.4 ML SYRINGE SQ SCH ×2 (08:20→20:05)
[2020-11-26 08:24] LABS: Glucose,Whole Blood 162 mg/dL (75-99)
[2020-11-26] MEDS: ALBUTEROL HFA INHALER INHALATION SCH ×4 (08:28→20:30)
[2020-11-26 08:33] LABS: Basophils % (A) 0 %; Eosinophils % (A) 0 %; HCT 46.3 % (39.0-53.0); HGB 15.6 gm/dL (13.0-17.5); Lymphocytes # (A) 0.6 k/uL (1.0-4.8); Lymphocytes % (A) 9 %; MCH 31.1 pg (25.0-35.0); MCHC 33.7 g/dL (31.0-37.0); MCV 92.4 fL (80.0-100.0); Mean Platelet Volume 8.7; Monocytes # (A) 0.3 k/uL (0-1.0); Monocytes % (A) 5 %; Neutrophils # (A) 5.8 k/uL (1.3-7.7); Neutrophils % (A) 85 %; Platelet Count 200 k/uL (150-450); RBC 5.01 m/uL (4.30-5.90); RDW 13.3 % (11.5-15.5); WBC 6.8 k/uL (3.8-10.6)
[2020-11-26 08:44] LABS: Albumin 2.7 g/dL (3.5-5.0); C Reactive Protein 64.9 mg/L (<10.0); Calcium 7.1 mg/dL (8.4-10.2); Magnesium 2.5 mg/dL (1.6-2.3); Potassium 4.3 mmol/L (3.5-5.1); Total Bilirubin 0.4 mg/dL (0.2-1.3); Total Protein 5.6 g/dL (6.3-8.2)
--- NOTE | 2020-11-26 09:58 | P.PN ---
Subjective Progress Note Date: 11/26/20 Principal diagnosis: Shortness of breath/nonproductive cough/generalized malaise and fatigue Evaluated 45-year-old male this a.m. Patient sitting in chair with high-flow supplemental oxygen-aivro @ 35 L; patient able to carry on a conversation with mild dyspnea noted. Patient continues endorse shortness of breath at rest, extreme dyspnea with exertion, chest discomfort, chills, nausea. Objective - Vital Signs Vital signs: Vital Signs Temp 98.1 F 11/26/20 08:00 Pulse 78 11/26/20 08:00 Resp 19 11/26/20 08:00 BP 123/61 11/26/20 08:00 Pulse Ox 93 L 11/26/20 08:33 Intake & Output 11/25/20 11/26/20 11/26/20 18:59 06:59 18:59 Intake Total 266 42.134 560 Output Total 850 800 500 Balance -154 -497.866 60 Intake: Intake, IV Titration 42.134 Amount Insulin Regular 100 unit 42.134 In Sodium Chloride 0.9% 100 ml @ Titrate IV .Q0M [facility] Rx#:[id number] Oral 125 560 Blood Product 141 Ffp Pher Conval Covid19 141 Acda 1 Unit [id number] Output: Urine 850 800 500 Other: Voiding Method Toilet Urinal # Voids 1 - Constitutional General appearance: Present: mild distress - EENT Eyes: Present: EOMI, PERRLA ENT: Present: normal oropharynx Ears: bilateral: normal - Neck Neck: Present: normal ROM Carotids: bilateral: upstroke normal Thyroid: bilateral: normal size - Respiratory Respiratory: bilateral: rhonchi (Course throughout lung roblero) - Cardiovascular Details: Normal sinus Heart rate: 78 Rhythm: regular Heart sounds: normal: S1, S2 - Peripheral pulses radial pulse Peripheral Pulses: bilateral: Normal dorsalis pedis Peripheral Pulses: bilateral: Normal - Gastrointestinal General gastrointestinal: Present: normal bowel sounds - Integumentary Integumentary: Present: normal turgor - Neurologic Neurologic: Present: CNII-XII intact - Musculoskeletal Musculoskeletal: Present: gait normal - Psychiatric Psychiatric: Present: A&O x's 3, appropriate affect, intact judgment & insight - Allied health notes Allied health notes reviewed: nursing - Labs CBC & Chem 7: 11/26/20 08:10 02/19/21 08:10 Labs: Abnormal Lab Results - Last 24 Hours (Table) 11/25/20 11/25/20 11/25/20 Range/Units 02:40 12:10 16:50 Lymphocytes # (1.0-4.8) k/uL Sodium 128 L (135-145) mmol/L Chloride 93 L (96-109) mmol/L Carbon Dioxide (22-30) mmol/L Anion Gap 12.10 H (4.00-12.00) mmol/L BUN 46.0 H (9.0-27.0) mg/dL Creatinine 1.8 H (0.6-1.5) mg/dL Est GFR (CKD-EPI)AfAm 51.5 L (60.0-200.0) Est GFR (CKD-EPI)NonAf 44.5 L (60.0-200.0) BUN/Creatinine Ratio 25.56 H (12.00-20.00) Ratio Glucose 305 H (70-110) mg/dL POC Glucose (mg/dL) 376 H 398 H (75-99) mg/dL Calcium 7.4 L (8.7-10.3) mg/dL Magnesium (1.6-2.3) mg/dL Ferritin 1130.1 H (22.0-322.0) ng/mL AST 58 H (14-35) U/L Lactate Dehydrogenase 380 H (120-246) U/L C-Reactive Protein 10.4 H (0.0-0.8) mg/dL Total Protein 4.6 L (6.2-8.2) g/dL Albumin 3.10 L (3.80-4.90) g/dL Globulin 1.5 L (1.6-3.3) g/dL 11/25/20 11/25/20 11/25/20 Range/Units 20:35 21:43 22:30 Lymphocytes # (1.0-4.8) k/uL Sodium 124 L (135-145) mmol/L Chloride 94 L (96-109) mmol/L Carbon Dioxide (22-30) mmol/L Anion Gap (4.00-12.00) mmol/L BUN 58 H (9.0-27.0) mg/dL Creatinine 1.78 H (0.6-1.5) mg/dL Est GFR (CKD-EPI)AfAm (60.0-200.0) Est GFR (CKD-EPI)NonAf (60.0-200.0) BUN/Creatinine Ratio (12.00-20.00) Ratio Glucose 378 H (70-110) mg/dL POC Glucose (mg/dL) 447 H 333 H (75-99) mg/dL Calcium 6.7 L (8.7-10.3) mg/dL Magnesium (1.6-2.3) mg/dL Ferritin (22.0-322.0) ng/mL AST (14-35) U/L Lactate Dehydrogenase (120-246) U/L C-Reactive Protein (0.0-0.8) mg/dL Total Protein (6.2-8.2) g/dL Albumin (3.80-4.90) g/dL Globulin (1.6-3.3) g/dL 11/25/20 11/26/20 11/26/20 Range/Units 23:03 02:27 03:25 Lymphocytes # (1.0-4.8) k/uL Sodium 129 L (135-145) mmol/L Chloride 97 L (96-109) mmol/L Carbon Dioxide (22-30) mmol/L Anion Gap (4.00-12.00) mmol/L BUN 61 H (9.0-27.0) mg/dL Creatinine 1.82 H (0.6-1.5) mg/dL Est GFR (CKD-EPI)AfAm (60.0-200.0) Est GFR (CKD-EPI)NonAf (60.0-200.0) BUN/Creatinine Ratio (12.00-20.00) Ratio Glucose 103 H (70-110) mg/dL POC Glucose (mg/dL) 229 H 102 H (75-99) mg/dL Calcium 6.9 L (8.7-10.3) mg/dL Magnesium (1.6-2.3) mg/dL Ferritin (22.0-322.0) ng/mL AST (14-35) U/L Lactate Dehydrogenase (120-246) U/L C-Reactive Protein (0.0-0.8) mg/dL Total Protein (6.2-8.2) g/dL Albumin (3.80-4.90) g/dL Globulin (1.6-3.3) g/dL 11/26/20 11/26/20 11/26/20 Range/Units 03:27 04:34 06:35 Lymphocytes # (1.0-4.8) k/uL Sodium (135-145) mmol/L Chloride (96-109) mmol/L Carbon Dioxide (22-30) mmol/L Anion Gap (4.00-12.00) mmol/L BUN (9.0-27.0) mg/dL Creatinine (0.6-1.5) mg/dL Est GFR (CKD-EPI)AfAm (60.0-200.0) Est GFR (CKD-EPI)NonAf (60.0-200.0) BUN/Creatinine Ratio (12.00-20.00) Ratio Glucose (70-110) mg/dL POC Glucose (mg/dL) 122 H 132 H 161 H (75-99) mg/dL Calcium (8.7-10.3) mg/dL Magnesium (1.6-2.3) mg/dL Ferritin (22.0-322.0) ng/mL AST (14-35) U/L Lactate Dehydrogenase (120-246) U/L C-Reactive Protein (0.0-0.8) mg/dL Total Protein (6.2-8.2) g/dL Albumin (3.80-4.90) g/dL Globulin (1.6-3.3) g/dL 11/26/20 11/26/20 11/26/20 Range/Units 08:10 08:10 08:12 Lymphocytes # 0.6 L (1.0-4.8) k/uL Sodium 129 L (135-145) mmol/L Chloride (96-109) mmol/L Carbon Dioxide 18 L (22-30) mmol/L Anion Gap (4.00-12.00) mmol/L BUN 59 H (9.0-27.0) mg/dL Creatinine 1.68 H (0.6-1.5) mg/dL Est GFR (CKD-EPI)AfAm (60.0-200.0) Est GFR (CKD-EPI)NonAf (60.0-200.0) BUN/Creatinine Ratio (12.00-20.00) Ratio Glucose 150 H (70-110) mg/dL POC Glucose (mg/dL) 162 H (75-99) mg/dL Calcium 7.1 L (8.7-10.3) mg/dL Magnesium 2.5 H (1.6-2.3) mg/dL Ferritin (22.0-322.0) ng/mL AST 86 H (14-35) U/L Lactate Dehydrogenase 1560 H (120-246) U/L C-Reactive Protein 64.9 H (0.0-0.8) mg/dL Total Protein 5.6 L (6.2-8.2) g/dL Albumin 2.7 L (3.80-4.90) g/dL Globulin (1.6-3.3) g/dL Microbiology - Last 24 Hours (Table) 11/24/20 21:05 Blood Culture - Preliminary Blood No Growth after 24 hours - Imaging and Cardiology Chest x-ray: report reviewed Assessment and Plan Assessment: Acute hypoxic respiratory failure due to Covid 19 pneumonia atypical bacteria pneumonia acute kidney injury diabetes mellitus type two elevated inflammatory markers bilateral pleural effusions Plan: Covid 19 pneumonia continue corticosteroids, vitamin supplements, IV remdesivir, convalescent plasma; consultation with pulmonary critical care for recommendations and treatment plan Acute kidney injury monitor renal function Diabetes mellitus type II high-intensity sliding scale Elevated inflammatory markers continue to trend Elevated troponins consultation with cardiology for recommendations and treatment plan with echocardiogram pending Possible secondary bacterial pneumonia will monitor for pneumonia of bacterial in origin . Hypertension continue recommendations from cardiology standpoint Continue medical management full code Prognosis critical at this time will continue to monitor closely Time with Patient: Greater than 30
[2020-11-26 10:47] LABS: Glucose,Whole Blood 227 mg/dL (75-99)
[2020-11-26] MEDS: REMDESIVIR 100 MG in SODIUM CHLORIDE 0.9% 250 ML IVPB SCH (11:07)
[2020-11-26 12:09] LABS: D-Dimer 0.51 mg/L FEU (<0.60)
[2020-11-26 12:22] LABS: Glucose,Whole Blood 200 mg/dL (75-99)
--- NOTE | 2020-11-26 14:31 | P.PN ---
Subjective Progress Note Date: 11/26/20 CHIEF COMPLAINT: elevated troponin HISTORY OF PRESENT ILLNESS: 11/25/2020 This is a 45-year-old male with a past medical history significant for hypertension, asthma, and diabetes. patient states he does not take any medications for his hypertension or diabetes. He reports his mother was a "pill popper" and he is hesitant taking any kind of medication. 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 We have been asked to see the patient in consultation for elevated troponins. Patient examined this morning at the bedside. Patient states he has been feeling short of breath and experiencing a cough for the last 2-3 days. He went to urgent care and tested positive for Covid. He presented to the hospital with continued shortness of breath. patient denies any chest pain or pressure. He denies dizziness or lightheadedness. He currently denies shortness of breath. He is on Airvo at the time of examination. He denies nicotine use. He denies alcohol use. He denies any family history of coronary artery disease. 11/26/2020 Patient examined this morning. Patient is sitting up in the chair. He reports mild shortness of breath. He remains on Airvo. Denies chest pain or pressure. Patient has been encouraged to lay prone in the bed but he states he is unable to tolerate it. PHYSICAL EXAM: VITAL SIGNS: Reviewed. GENERAL: Well-developed in no acute distress. HEENT: Head is normocephalic. Pupils are equal, round. Sclerae anicteric. Mucous membranes of the mouth are moist. Neck supple. No JVD or thyromegaly LUNGS: Respirations even and unlabored. Lungs coarse with scattered rhonchi HEART: Regular rate and rhythm. S1 and S2 heard. ABDOMEN: Soft. Nondistended. Nontender. EXTREMITIES: Normal range of motion. No clubbing or cyanosis. Peripheral pulses intact. No lower extremity edema NEUROLOGIC: Awake and alert. Oriented x 3. 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 Signing provider agrees with the documented findings, assessment, and plan of care. Objective - Vital Signs Vital signs: Vital Signs Temp 98.1 F 11/26/20 08:00 Pulse 70 11/26/20 12:00 Resp 18 11/26/20 12:00 BP 99/59 11/26/20 12:00 Pulse Ox 93 L 11/26/20 12:00 Intake & Output 11/25/20 11/26/20 11/26/20 18:59 06:59 18:59 Intake Total 266 42.134 576.582 Output Total 850 800 500 Balance -584 -757.866 76.582 Intake: Intake, IV Titration 42.134 16.582 Amount Insulin Regular 100 unit 42.134 16.582 In Sodium Chloride 0.9% 100 ml @ Titrate IV .Q0M [facility] Rx#:[id number] Oral 125 560 Blood Product 141 Ffp Pher Conval Covid19 141 Acda 1 Unit [id number] Output: Urine 850 800 500 Other: Voiding Method Toilet Urinal # Voids 1 - Labs CBC & Chem 7: 11/26/20 08:10 11/26/20 08:10 Labs: Abnormal Lab Results - Last 24 Hours (Table) 11/25/20 11/25/20 11/25/20 Range/Units 16:50 20:35 21:43 Lymphocytes # (1.0-4.8) k/uL Fibrinogen (200-500) mg/dL Sodium 124 L (137-145) mmol/L Chloride 94 L (98-107) mmol/L Carbon Dioxide (22-30) mmol/L BUN 58 H (9-20) mg/dL Creatinine 1.78 H (0.66-1.25) mg/dL Glucose 378 H (74-99) mg/dL POC Glucose (mg/dL) 398 H 447 H (75-99) mg/dL Calcium 6.7 L (8.4-10.2) mg/dL Magnesium (1.6-2.3) mg/dL AST (17-59) U/L Lactate Dehydrogenase (313-618) U/L C-Reactive Protein (<10.0) mg/L Total Protein (6.3-8.2) g/dL Albumin (3.5-5.0) g/dL 11/25/20 11/25/2021 Range/Units 22:30 23:03 02:27 Lymphocytes # (1.0-4.8) k/uL Fibrinogen (200-500) mg/dL Sodium (137-145) mmol/L Chloride (98-107) mmol/L Carbon Dioxide (22-30) mmol/L BUN (9-20) mg/dL Creatinine (0.66-1.25) mg/dL Glucose (74-99) mg/dL POC Glucose (mg/dL) 333 H 229 H 102 H (75-99) mg/dL Calcium (8.4-10.2) mg/dL Magnesium (1.6-2.3) mg/dL AST (17-59) U/L Lactate Dehydrogenase (313-618) U/L C-Reactive Protein (<10.0) mg/L Total Protein (6.3-8.2) g/dL Albumin (3.5-5.0) g/dL 11/26/20 11/26/20 11/26/20 Range/Units 03:25 03:27 04:34 Lymphocytes # (1.0-4.8) k/uL Fibrinogen (200-500) mg/dL Sodium 129 L (137-145) mmol/L Chloride 97 L (98-107) mmol/L Carbon Dioxide (22-30) mmol/L BUN 61 H (9-20) mg/dL Creatinine 1.82 H (0.66-1.25) mg/dL Glucose 103 H (74-99) mg/dL POC Glucose (mg/dL) 122 H 132 H (75-99) mg/dL Calcium 6.9 L (8.4-10.2) mg/dL Magnesium (1.6-2.3) mg/dL AST (17-59) U/L Lactate Dehydrogenase (313-618) U/L C-Reactive Protein (<10.0) mg/L Total Protein (6.3-8.2) g/dL Albumin (3.5-5.0) g/dL 11/26/20 11/26/20 11/26/20 Range/Units 06:35 08:10 08:10 Lymphocytes # 0.6 L (1.0-4.8) k/uL Fibrinogen (200-500) mg/dL Sodium 129 L (137-145) mmol/L Chloride (98-107) mmol/L Carbon Dioxide 18 L (22-30) mmol/L BUN 59 H (9-20) mg/dL Creatinine 1.68 H (0.66-1.25) mg/dL Glucose 150 H (74-99) mg/dL POC Glucose (mg/dL) 161 H (75-99) mg/dL Calcium 7.1 L (8.4-10.2) mg/dL Magnesium 2.5 H (1.6-2.3) mg/dL AST 86 H (17-59) U/L Lactate Dehydrogenase 1560 H (313-618) U/L C-Reactive Protein 64.9 H (<10.0) mg/L Total Protein 5.6 L (6.3-8.2) g/dL Albumin 2.7 L (3.5-5.0) g/dL 11/26/20 11/26/20 11/26/20 Range/Units 08:12 10:44 11:03 Lymphocytes # (1.0-4.8) k/uL Fibrinogen 594 H (200-500) mg/dL Sodium (137-145) mmol/L Chloride (98-107) mmol/L Carbon Dioxide (22-30) mmol/L BUN (9-20) mg/dL Creatinine (0.66-1.25) mg/dL Glucose (74-99) mg/dL POC Glucose (mg/dL) 162 H 227 H (75-99) mg/dL Calcium (8.4-10.2) mg/dL Magnesium (1.6-2.3) mg/dL AST (17-59) U/L Lactate Dehydrogenase (313-618) U/L C-Reactive Protein (<10.0) mg/L Total Protein (6.3-8.2) g/dL Albumin (3.5-5.0) g/dL 11/26/20 Range/Units 12:20 Lymphocytes # (1.0-4.8) k/uL Fibrinogen (200-500) mg/dL Sodium (137-145) mmol/L Chloride (98-107) mmol/L Carbon Dioxide (22-30) mmol/L BUN (9-20) mg/dL Creatinine (0.66-1.25) mg/dL Glucose (74-99) mg/dL POC Glucose (mg/dL) 200 H (75-99) mg/dL Calcium (8.4-10.2) mg/dL Magnesium (1.6-2.3) mg/dL AST (17-59) U/L Lactate Dehydrogenase (313-618) U/L C-Reactive Protein (<10.0) mg/L Total Protein (6.3-8.2) g/dL Albumin (3.5-5.0) g/dL Microbiology - Last 24 Hours (Table) 11/24/20 21:05 Blood Culture - Preliminary Blood No Growth after 24 hours
[2020-11-26 14:52] LABS: Glucose,Whole Blood 257 mg/dL (75-99)
[2020-11-26] MEDS: ACETAMINOPHEN TAB 325 MG TAB PO PRN (15:06)
[2020-11-26] MEDS ORDERED: guaiFENesin-DM 600/30MG 1 EACH TAB.ER.12H PO PRN (15:12)
[2020-11-26] MEDS: INSULIN REGULAR 100 UNIT in SODIUM CHLORIDE 0.9% 100 ML IV SCH (16:12)
[2020-11-26 16:42] LABS: Glucose,Whole Blood 236 mg/dL (75-99)
--- NOTE | 2020-11-26 16:59 | P.PN ---
Subjective Progress Note Date: 11/26/20 Principal diagnosis: Acute hypoxic respiratory failure due to covert 19 pneumonia Associated bacterial pneumonia secondary cannot be excluded Acute kidney injury Uncontrolled diabetes Elevated d-dimer History of hypertension hypertensive cardiovascular disease Bilateral pleural effusion 11/26/2020, patient seen eval examined during the rounds labs reviewed medications reviewed care plan discussed, patient remains on the high flow oxygen with aerosolized 35 L 60%, chest x-ray showed slightly improvement bilaterally, patient also noted to have a significant finding of LV dysfunction and his ejection fraction is 20-25%, mild diastolic dysfunction noted as well, patient has received a single dose of diuretics creatinine remained stable, oxygen saturation is 91-95%, patient refused prone positioning but agree able for sleeping on the sides This is a 45-year-old male with a history of lzq-eutkxlt-swnsuwrox diabetes mellitus hypertension and likely obstructive sleep apnea, patient is been having shortness of breath which developed into cough and increasing breathing difficulty for last 5 days, patient was diagnosed over positive in urgent care due to shortness of breath came into the hospital for further evaluation, 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, patient was hypoxic noted to have a saturation of 88-89% was admitted into the hospital with shortness of breath, significant labs are sodium of 126 BUN/creatinine is 4111.65, d-dimer is elevated, bilateral pneumonia with pleural effusion seen on chest x-ray, bilateral pleural effusion and extensive bilateral pulmonary infiltrate seen consistent with pneumonia on the computed tomography scan negative for pulmonary embolism, chest x-ray performed today continue show diffuse disease right more than the left, currently patient is on airvo 40 L, he is comfortable on that with the saturation 94-95% Objective - Vital Signs Vital signs: Vital Signs Temp 98.7 F 11/26/20 15:19 Pulse 74 11/26/20 15:19 Resp 19 11/26/20 15:19 BP 116/71 11/26/20 15:19 Pulse Ox 92 L 11/26/20 15:19 Intake & Output 11/25/20 11/26/20 11/26/20 18:59 06:59 18:59 Intake Total 266 42.134 825.209 Output Total 850 800 500 Balance -584 757.866 325.209 Intake: Intake, IV Titration 42.134 25.209 Amount Insulin Regular 100 unit 42.134 25.209 In Sodium Chloride 0.9% 100 ml @ Titrate IV .Q0M [facility] Rx#:[id number] Oral 125 800 Blood Product 141 Ffp Pher Conval Covid19 141 Acda 1 Unit [id number] Output: Urine 850 800 500 Other: Voiding Method Toilet Urinal # Voids 1 - Exam - Constitutional General appearance: average body habitus, cooperative, disheveled - EENT Eyes: EOMI, PERRLA - Neck Neck: normal ROM Carotids: bilateral: upstroke normal Thyroid: bilateral: normal size - Respiratory Respiratory: bilateral: diminished, rales - Cardiovascular Rhythm: regular Heart sounds: normal: S1, S2 - Gastrointestinal General gastrointestinal: normal bowel sounds - Neurologic Neurologic: CNII-XII intact - Musculoskeletal Musculoskeletal: gait normal, generalized weakness, strength equal bilaterally - Psychiatric Psychiatric: A&O x's 3, appropriate affect, intact judgment & insight - Labs CBC & Chem 7: 11/26/20 08:10 11/26/20 08:10 Labs: Abnormal Lab Results - Last 24 Hours (Table) 11/25/20 11/25/20 11/25/20 Range/Units 16:50 20:35 21:43 Lymphocytes # (1.0-4.8) k/uL Fibrinogen (200-500) mg/dL Sodium 124 L (137-145) mmol/L Chloride 94 L (98-107) mmol/L Carbon Dioxide (22-30) mmol/L BUN 58 H (9-20) mg/dL Creatinine 1.78 H (0.66-1.25) mg/dL Glucose 378 H (74-99) mg/dL POC Glucose (mg/dL) 398 H 447 H (75-99) mg/dL Calcium 6.7 L (8.4-10.2) mg/dL Magnesium (1.6-2.3) mg/dL Ferritin (22.0-322.0) ng/mL AST (17-59) U/L Lactate Dehydrogenase (313-618) U/L C-Reactive Protein (<10.0) mg/L Total Protein (6.3-8.2) g/dL Albumin (3.5-5.0) g/dL 11/25/20 11/25/20 11/26/20 Range/Units 22:30 23:03 02:27 Lymphocytes # (1.0-4.8) k/uL Fibrinogen (200-500) mg/dL Sodium (137-145) mmol/L Chloride (98-107) mmol/L Carbon Dioxide (22-30) mmol/L BUN (9-20) mg/dL Creatinine (0.66-1.25) mg/dL Glucose (74-99) mg/dL POC Glucose (mg/dL) 333 H 229 H 102 H (75-99) mg/dL Calcium (8.4-10.2) mg/dL Magnesium (1.6-2.3) mg/dL Ferritin (22.0-322.0) ng/mL AST (17-59) U/L Lactate Dehydrogenase (313-618) U/L C-Reactive Protein (<10.0) mg/L Total Protein (6.3-8.2) g/dL Albumin (3.5-5.0) g/dL 11/26/20 11/26/20 11/26/20 Range/Units 03:25 03:27 04:34 Lymphocytes # (1.0-4.8) k/uL Fibrinogen (200-500) mg/dL Sodium 129 L (137-145) mmol/L Chloride 97 L (98-107) mmol/L Carbon Dioxide (22-30) mmol/L BUN 61 H (9-20) mg/dL Creatinine 1.82 H (0.66-1.25) mg/dL Glucose 103 H (74-99) mg/dL POC Glucose (mg/dL) 122 H 132 H (75-99) mg/dL Calcium 6.9 L (8.4-10.2) mg/dL Magnesium (1.6-2.3) mg/dL Ferritin (22.0-322.0) ng/mL AST (17-59) U/L Lactate Dehydrogenase (313-618) U/L C-Reactive Protein (<10.0) mg/L Total Protein (6.3-8.2) g/dL Albumin (3.5-5.0) g/dL 11/26/20 11/26/20 11/26/20 Range/Units 06:35 08:10 08:10 Lymphocytes # 0.6 L (1.0-4.8) k/uL Fibrinogen (200-500) mg/dL Sodium 129 L (137-145) mmol/L Chloride (98-107) mmol/L Carbon Dioxide 18 L (22-30) mmol/L BUN 59 H (9-20) mg/dL Creatinine 1.68 H (0.66-1.25) mg/dL Glucose 150 H (74-99) mg/dL POC Glucose (mg/dL) 161 H (75-99) mg/dL Calcium 7.1 L (8.4-10.2) mg/dL Magnesium 2.5 H (1.6-2.3) mg/dL Ferritin (22.0-322.0) ng/mL AST 86 H (17-59) U/L Lactate Dehydrogenase 1560 H (313-618) U/L C-Reactive Protein 64.9 H (<10.0) mg/L Total Protein 5.6 L (6.3-8.2) g/dL Albumin 2.7 L (3.5-5.0) g/dL 11/26/20 11/26/20 11/26/20 Range/Units 08:12 10:44 11:03 Lymphocytes # (1.0-4.8) k/uL Fibrinogen 594 H (200-500) mg/dL Sodium (137-145) mmol/L Chloride (98-107) mmol/L Carbon Dioxide (22-30) mmol/L BUN (9-20) mg/dL Creatinine (0.66-1.25) mg/dL Glucose (74-99) mg/dL POC Glucose (mg/dL) 162 H 227 H (75-99) mg/dL Calcium (8.4-10.2) mg/dL Magnesium (1.6-2.3) mg/dL Ferritin (22.0-322.0) ng/mL AST (17-59) U/L Lactate Dehydrogenase (313-618) U/L C-Reactive Protein (<10.0) mg/L Total Protein (6.3-8.2) g/dL Albumin (3.5-5.0) g/dL 11/26/20 11/26/20 11/26/20 Range/Units 11:03 12:20 14:50 Lymphocytes # (1.0-4.8) k/uL Fibrinogen (200-500) mg/dL Sodium (137-145) mmol/L Chloride (98-107) mmol/L Carbon Dioxide (22-30) mmol/L BUN (9-20) mg/dL Creatinine (0.66-1.25) mg/dL Glucose (74-99) mg/dL POC Glucose (mg/dL) 200 H 257 H (75-99) mg/dL Calcium (8.4-10.2) mg/dL Magnesium (1.6-2.3) mg/dL Ferritin 1489.0 H (22.0-322.0) ng/mL AST (17-59) U/L Lactate Dehydrogenase (313-618) U/L C-Reactive Protein (<10.0) mg/L Total Protein (6.3-8.2) g/dL Albumin (3.5-5.0) g/dL 11/26/20 Range/Units 16:40 Lymphocytes # (1.0-4.8) k/uL Fibrinogen (200-500) mg/dL Sodium (137-145) mmol/L Chloride (98-107) mmol/L Carbon Dioxide (22-30) mmol/L BUN (9-20) mg/dL Creatinine (0.66-1.25) mg/dL Glucose (74-99) mg/dL POC Glucose (mg/dL) 236 H (75-99) mg/dL Calcium (8.4-10.2) mg/dL Magnesium (1.6-2.3) mg/dL Ferritin (22.0-322.0) ng/mL AST (17-59) U/L Lactate Dehydrogenase (313-618) U/L C-Reactive Protein (<10.0) mg/L Total Protein (6.3-8.2) g/dL Albumin (3.5-5.0) g/dL Microbiology - Last 24 Hours (Table) 11/24/20 21:05 Blood Culture - Preliminary Blood No Growth after 24 hours Assessment and Plan Assessment: Acute hypoxic respiratory failure due to covert 19 pneumonia Acute dilated cardiomyopathy differential diagnoses covert versus diffuse coronary artery disease given presence of multiple risk factors Associated bacterial pneumonia secondary cannot be excluded Acute kidney injury Uncontrolled diabetes on insulin drip now Elevated d-dimer History of hypertension hypertensive cardiovascular disease Bilateral pleural effusion Plan: Continue afterload reducing agent Continue patient on high flow oxygen with airvo, aim for saturation 90% and above Decadron 6 mg IV q12 Continue Lovenox 40 mg IV every 12 IV REMdesivir Convalescent plasma Monitor clinical course closely further recommendations pending plan of care as per clinical response of the patient Monitor renal functions closely if creatinine continued to rise may need to stop the VERONA inhibitor Time with Patient: Greater than 30
[2020-11-26 18:31] LABS: Glucose,Whole Blood 159 mg/dL (75-99)
[2020-11-26] MEDS: MELATONIN 5 MG TABLET PO SCH (19:59)
[2020-11-26] MEDS: ALPRAZolam 0.25 MG TAB PO PRN (19:59)
[2020-11-26 20:36] LABS: Glucose,Whole Blood 204 mg/dL (75-99)
[2020-11-26 22:43] LABS: Glucose,Whole Blood 164 mg/dL (75-99)
[2020-11-27 00:34] LABS: Glucose,Whole Blood 150 mg/dL (75-99)
[2020-11-27] MEDS: ONDANSETRON 4 MG/2 ML VIAL IVP PRN (01:39)
[2020-11-27 02:38] LABS: Glucose,Whole Blood 131 mg/dL (75-99)
[2020-11-27 04:39] LABS: Glucose,Whole Blood 173 mg/dL (75-99)
[2020-11-27 06:41] LABS: Glucose,Whole Blood 171 mg/dL (75-99)
--- NOTE | 2020-11-27 06:50 | XR ---
EXAMINATION TYPE: XR chest 1V portable DATE OF EXAM: 11/27/2020 COMPARISON: 11/26/2020 HISTORY: Pneumonia TECHNIQUE: Single frontal view of the chest is obtained. FINDINGS: Diffuse bilateral airspace disease persists without significant change. The cardiac silhouette size is within normal limits. The osseous structures are intact. IMPRESSION: 1. Stable diffuse bilateral pneumonia.
[2020-11-27 07:53] LABS: Basophils % (A) 0 %; Eosinophils % (A) 0 %; HCT 45.1 % (39.0-53.0); HGB 15.5 gm/dL (13.0-17.5); Lymphocytes # (A) 0.6 k/uL (1.0-4.8); Lymphocytes % (A) 8 %; MCHC 34.3 g/dL (31.0-37.0); MCV 90.6 fL (80.0-100.0); Monocytes # (A) 0.4 k/uL (0-1.0); Monocytes % (A) 6 %; Neutrophils # (A) 6.1 k/uL (1.3-7.7); Neutrophils % (A) 85 %; Platelet Count 201 k/uL (150-450); RBC 4.98 m/uL (4.30-5.90); RDW 13.3 % (11.5-15.5); WBC 7.2 k/uL (3.8-10.6)
[2020-11-27 08:05] LABS: Albumin 2.5 g/dL (3.5-5.0); Magnesium 2.7 mg/dL (1.6-2.3); Potassium 4.3 mmol/L (3.5-5.1); Total Bilirubin 0.4 mg/dL (0.2-1.3); Total Protein 5.2 g/dL (6.3-8.2)
[2020-11-27 08:07] LABS: D-Dimer 0.56 mg/L FEU (<0.60)
[2020-11-27 08:32] LABS: C Reactive Protein 42.7 mg/L (<10.0)
[2020-11-27] MEDS: ALBUTEROL HFA INHALER INHALATION SCH ×4 (08:36→21:16)
[2020-11-27 08:51] LABS: Glucose,Whole Blood 249 mg/dL (75-99)
[2020-11-27] MEDS: ENOXAPARIN 40 MG/0.4 ML SYRINGE SQ SCH ×2 (09:00→20:24)
[2020-11-27] MEDS: DEXAMETHASONE SOD PHOSPHATE 10 MG/ML 1 ML VIAL IV SCH ×2 (09:01→20:23)
[2020-11-27] MEDS: CHOLECALCIFEROL 25 MCG (1000 IU) TABLET PO SCH (09:01)
[2020-11-27] MEDS: ASPIRIN 81 MG PO SCH (09:01)
[2020-11-27] MEDS: AZITHROMYCIN 500 MG TAB PO SCH (09:01)
[2020-11-27] MEDS: SPIRONOLACTONE 25 MG TAB PO SCH (09:02)
[2020-11-27] MEDS: ASCORBIC ACID 500 MG TAB PO SCH ×3 (09:02→20:23)
[2020-11-27] MEDS: ZINC SULFATE 220 MG CAP PO SCH (09:02)
[2020-11-27] MEDS: METOPROLOL TARTRATE 12.5 MG TAB PO SCH ×2 (09:03→20:23)
[2020-11-27] MEDS: REMDESIVIR 100 MG in SODIUM CHLORIDE 0.9% 250 ML IVPB SCH (09:07)
--- NOTE | 2020-11-27 11:03 | CONS ---
CONSULTATION REASON FOR CONSULT: Renal failure. HISTORY OF PRESENT ILLNESS: The patient is a 45-year-old male who has a history of type 2 diabetes, hypertension, asthma, and was admitted with complaints of shortness of breath. Patient has tested positive for Covid 19 and is currently being treated for Covid 19 pneumonia. He denies any prior history of kidney diseases. Currently patient is maintained on Decadron. He is getting Remdesivir and zinc. Serum creatinine was 1.63 today and it has been about the same since admission on November 24. It did peak at 1.8 on November 26. Review of previous labs shows a serum creatinine of 0.87 on 11/20/2017. Patient admitted to history of use of ibuprofen prior to admission for about 2 days. Patient's blood pressure has been on the lower side with systolic around 119-115, although a reading of 98 per systolic blood pressure was noted only this morning. The patient states he has been voiding. He is currently maintained on IV fluids. He is also on small dose of VERONA inhibitors. Ejection fraction this admission was noted to be 20-25 percent. PAST MEDICAL HISTORY: Significant for type 2 diabetes, hypertension, asthma. PAST SURGICAL HISTORY: None. SOCIAL HISTORY: Negative for smoking, drug abuse or alcohol abuse. MEDICATIONS: Medications prior to admission none. ALLERGIES: None. REVIEW OF SYSTEMS: As per HPI. Other systems negative. EXAMINATION: The patient is comfortable. He is not in acute distress. Blood pressure is 117/58, heart rate 73 per minute. He is afebrile. He is saturating 90%. He is maintained on high-flow oxygen. Alert and oriented x3. ABDOMEN: Soft, non-tender. Examination of lower extremities shows no evidence of edema. LABEL STAMPER exam grossly intact. Lungs and heart are not examined. HEENT atraumatic, normocephalic. LAB: Show sodium 132, potassium 4.3, chloride 99, BUN 60, creatinine 1.6, hemoglobin 15.5 g/dL. ASSESSMENT: 1. Acute kidney injury associated with underlying COVID-19 infection as well as cardiorenal. Serum creatinine decreased to 1.6 from 1.8 previously. No nephrotoxic agents on board. May continue with the small dose of lisinopril for now. 2. COVID-19 pneumonia, maintained on steroids, Remdesivir. The patient is also on ceftriaxone. 3. Congestive heart failure, ejection fraction noted to be 20 to 25% on this admission, possibly related to the underlying viral infection. 4. Possible congestive heart failure, consider adding diuretics down the road depending on his respiratory status. At this point, his respiratory status is fairly stable. Continue to follow up on the chest x-rays as well. 5. Thank you for this consultation. Will continue to follow the patient with you during his hospitalization. REMY / JAMES: [id number] /
[2020-11-27 11:10] LABS: Glucose,Whole Blood 285 mg/dL (75-99)
--- NOTE | 2020-11-27 11:30 | P.PN ---
Subjective Progress Note Date: 11/27/20 This is a 45-year-old gentleman with past medical history significant for hypertension, asthma, diabetes, patient has tested positive for ayoub virus. Cardiology was initially consulted to see the patient because of abnormality in troponins. 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 Patient was sitting up in the chair this morning, continues to have some mild shortness of breath. Physical examination not performed. Objective - Vital Signs Vital signs: Vital Signs Temp 97.1 F L 11/27/20 08:00 Pulse 73 11/27/20 08:00 Resp 18 11/27/20 08:00 BP 117/58 11/27/20 08:00 Pulse Ox 90 L 11/27/20 08:00 Intake & Output 11/26/20 11/27/20 11/27/20 18:59 06:59 18:59 Intake Total 1079.097 22.808 5.286 Output Total 500 700 Balance 579.097 -677.192 5.286 Intake: Intake, IV Titration 39.097 22.808 5.286 Amount Insulin Regular 100 unit 39.097 22.808 5.286 In Sodium Chloride 0.9% 100 ml @ Titrate IV .Q0M [facility] Rx#:[id number] Oral 1040 Output: Urine 500 700 - Exam Physical examination not performed. - Labs CBC & Chem 7: 11/27/20 06:59 11/27/20 06:59 Labs: Abnormal Lab Results - Last 24 Hours (Table) 11/26/20 11/26/20 11/26/20 Range/Units 11:03 11:03 12:20 Lymphocytes # (1.0-4.8) k/uL Fibrinogen 594 H (200-500) mg/dL Sodium (137-145) mmol/L BUN (9-20) mg/dL Creatinine (0.66-1.25) mg/dL Glucose (74-99) mg/dL POC Glucose (mg/dL) 200 H (75-99) mg/dL Calcium (8.4-10.2) mg/dL Magnesium (1.6-2.3) mg/dL Ferritin 1489.0 H (22.0-322.0) ng/mL AST (17-59) U/L Lactate Dehydrogenase (313-618) U/L C-Reactive Protein (<10.0) mg/L Total Protein (6.3-8.2) g/dL Albumin (3.5-5.0) g/dL 11/26/20 11/26/20 11/26/20 Range/Units 14:50 16:40 18:29 Lymphocytes # (1.0-4.8) k/uL Fibrinogen (200-500) mg/dL Sodium (137-145) mmol/L BUN (9-20) mg/dL Creatinine (0.66-1.25) mg/dL Glucose (74-99) mg/dL POC Glucose (mg/dL) 257 H 236 H 159 H (75-99) mg/dL Calcium (8.4-10.2) mg/dL Magnesium (1.6-2.3) mg/dL Ferritin (22.0-322.0) ng/mL AST (17-59) U/L Lactate Dehydrogenase (313-618) U/L C-Reactive Protein (<10.0) mg/L Total Protein (6.3-8.2) g/dL Albumin (3.5-5.0) g/dL 11/26/20 11/26/20 11/27/20 Range/Units 20:33 22:41 00:31 Lymphocytes # (1.0-4.8) k/uL Fibrinogen (200-500) mg/dL Sodium (137-145) mmol/L BUN (9-20) mg/dL Creatinine (0.66-1.25) mg/dL Glucose (74-99) mg/dL POC Glucose (mg/dL) 204 H 164 H 150 H (75-99) mg/dL Calcium (8.4-10.2) mg/dL Magnesium (1.6-2.3) mg/dL Ferritin (22.0-322.0) ng/mL AST (17-59) U/L Lactate Dehydrogenase (313-618) U/L C-Reactive Protein (<10.0) mg/L Total Protein (6.3-8.2) g/dL Albumin (3.5-5.0) g/dL 11/27/20 11/27/20 11/27/20 Range/Units 02:35 04:36 06:37 Lymphocytes # (1.0-4.8) k/uL Fibrinogen (200-500) mg/dL Sodium (137-145) mmol/L BUN (9-20) mg/dL Creatinine (0.66-1.25) mg/dL Glucose (74-99) mg/dL POC Glucose (mg/dL) 131 H 173 H 171 H (75-99) mg/dL Calcium (8.4-10.2) mg/dL Magnesium (1.6-2.3) mg/dL Ferritin (22.0-322.0) ng/mL AST (17-59) U/L Lactate Dehydrogenase (313-618) U/L C-Reactive Protein (<10.0) mg/L Total Protein (6.3-8.2) g/dL Albumin (3.5-5.0) g/dL 11/27/20 11/27/20 11/27/20 Range/Units 06:59 06:59 06:59 Lymphocytes # 0.6 L (1.0-4.8) k/uL Fibrinogen 560 H (200-500) mg/dL Sodium 132 L (137-145) mmol/L BUN 60 H (9-20) mg/dL Creatinine 1.63 H (0.66-1.25) mg/dL Glucose 147 H (74-99) mg/dL POC Glucose (mg/dL) (75-99) mg/dL Calcium 7.0 L (8.4-10.2) mg/dL Magnesium 2.7 H (1.6-2.3) mg/dL Ferritin (22.0-322.0) ng/mL AST 90 H (17-59) U/L Lactate Dehydrogenase 1775 H (313-618) U/L C-Reactive Protein 42.7 H (<10.0) mg/L Total Protein 5.2 L (6.3-8.2) g/dL Albumin 2.5 L (3.5-5.0) g/dL 11/27/20 11/27/20 Range/Units 08:49 11:08 Lymphocytes # (1.0-4.8) k/uL Fibrinogen (200-500) mg/dL Sodium (137-145) mmol/L BUN (9-20) mg/dL Creatinine (0.66-1.25) mg/dL Glucose (74-99) mg/dL POC Glucose (mg/dL) 249 H 285 H (75-99) mg/dL Calcium (8.4-10.2) mg/dL Magnesium (1.6-2.3) mg/dL Ferritin (22.0-322.0) ng/mL AST (17-59) U/L Lactate Dehydrogenase (313-618) U/L C-Reactive Protein (<10.0) mg/L Total Protein (6.3-8.2) g/dL Albumin (3.5-5.0) g/dL Microbiology - Last 24 Hours (Table) 11/24/20 21:05 Blood Culture - Preliminary Blood No Growth after 48 hours Assessment and Plan Plan: Assessment and plan #1 COVID 19 pneumonia #2 bilateral pleural effusion #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 Continue supportive care. DNP note has been reviewed, I agree with a documented findings and plan of care. Patient was seen and examined.
[2020-11-27 12:31] LABS: Glucose,Whole Blood 254 mg/dL (75-99)
[2020-11-27 12:50] LABS: Ferritin 1994.6 ng/mL (22.0-322.0)
[2020-11-27 14:26] LABS: Glucose,Whole Blood 240 mg/dL (75-99)
[2020-11-27 16:50] LABS: Glucose,Whole Blood 93 mg/dL (75-99)
[2020-11-27 17:59] LABS: Glucose,Whole Blood 138 mg/dL (75-99)
[2020-11-27 19:12] LABS: Glucose,Whole Blood 216 mg/dL (75-99)
[2020-11-27] MEDS: ALPRAZolam 0.25 MG TAB PO PRN (20:23)
[2020-11-27] MEDS: MELATONIN 5 MG TABLET PO SCH (20:24)
[2020-11-27 21:19] LABS: Glucose,Whole Blood 269 mg/dL (75-99)
[2020-11-27 23:07] LABS: Glucose,Whole Blood 245 mg/dL (75-99)
[2020-11-28 01:04] LABS: Glucose,Whole Blood 196 mg/dL (75-99)
[2020-11-28] MEDS: INSULIN REGULAR 100 UNIT in SODIUM CHLORIDE 0.9% 100 ML IV SCH (01:20)
[2020-11-28 03:21] LABS: Glucose,Whole Blood 165 mg/dL (75-99)
[2020-11-28 06:01] LABS: Glucose,Whole Blood 176 mg/dL (75-99)
[2020-11-28 07:12] LABS: Glucose,Whole Blood 196 mg/dL (75-99)
[2020-11-28] MEDS: ALBUTEROL HFA INHALER INHALATION SCH ×4 (07:45→21:42)
[2020-11-28] MEDS: SPIRONOLACTONE 25 MG TAB PO SCH (08:50)
[2020-11-28] MEDS: ZINC SULFATE 220 MG CAP PO SCH (08:50)
[2020-11-28] MEDS: CHOLECALCIFEROL 25 MCG (1000 IU) TABLET PO SCH (08:50)
[2020-11-28] MEDS: METOPROLOL TARTRATE 12.5 MG TAB PO SCH ×2 (08:50→21:01)
[2020-11-28] MEDS: AZITHROMYCIN 500 MG TAB PO SCH (08:51)
[2020-11-28] MEDS: ASPIRIN 81 MG PO SCH (08:51)
[2020-11-28] MEDS: ASCORBIC ACID 500 MG TAB PO SCH ×3 (08:51→21:01)
[2020-11-28] MEDS: DEXAMETHASONE SOD PHOSPHATE 10 MG/ML 1 ML VIAL IV SCH ×2 (08:51→21:02)
[2020-11-28] MEDS: ENOXAPARIN 40 MG/0.4 ML SYRINGE SQ SCH ×2 (08:53→21:02)
[2020-11-28] MEDS: ALPRAZolam 0.25 MG TAB PO PRN ×2 (08:56→21:14)
[2020-11-28] MEDS: ACETAMINOPHEN TAB 325 MG TAB PO PRN (08:56)
[2020-11-28 09:05] LABS: Glucose,Whole Blood 354 mg/dL (75-99)
--- NOTE | 2020-11-28 10:29 | P.PN ---
Subjective Progress Note Date: 11/28/20 Principal diagnosis: Acute hypoxic respiratory failure due to covert 19 pneumonia Associated bacterial pneumonia secondary cannot be excluded Acute kidney injury Uncontrolled diabetes Elevated d-dimer History of hypertension hypertensive cardiovascular disease Bilateral pleural effusion 11/28/2020, patient seen eval examined during the rounds labs reviewed medications reviewed, remains on high flow and aerosolized oxygen with airvo 60%, FiO2 decreased to 55, patient remains on insulin drip for glucose varying from 250-350, last chest x-ray performed yesterday remains stable bilateral diffuse pneumonia, patient remains on afterload reducing agent, labs from today's remains pending, she remains on therapy with IV REM doesn't wear, Decadron, broad-spectrum antibiotics 11/26/2020, patient seen eval examined during the rounds labs reviewed medications reviewed care plan discussed, patient remains on the high flow oxygen with aerosolized 35 L 60%, chest x-ray showed slightly improvement bilaterally, patient also noted to have a significant finding of LV dysfunction and his ejection fraction is 20-25%, mild diastolic dysfunction noted as well, patient has received a single dose of diuretics creatinine remained stable, oxygen saturation is 91-95%, patient refused prone positioning but agree able for sleeping on the sides This is a 45-year-old male with a history of mfa-sdmrffu-albfoxptd diabetes mellitus hypertension and likely obstructive sleep apnea, patient is been having shortness of breath which developed into cough and increasing breathing difficul ty for last 5 days, patient was diagnosed over positive in urgent care due to shortness of breath came into the hospital for further evaluation, 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, patient was hypoxic noted to have a saturation of 88-89% was admitted into the hospital with shortness of breath, significant labs are sodium of 126 BUN/creatinine is 4111.65, d-dimer is elevated, bilateral pneumonia with pleural effusion seen on chest x-ray, bilateral pleural effusion and extensive bilateral pulmonary infiltrate seen consistent with pneumonia on the computed tomography scan negative for pulmonary embolism, chest x-ray performed today continue show diffuse disease right more than the left, currently patient is on airvo 40 L, he is comfortable on that with the saturation 94-95% Objective - Vital Signs Vital signs: Vital Signs Temp 97.6 F 11/28/20 08:50 Pulse 78 11/28/20 08:50 Resp 16 11/28/20 08:50 BP 126/71 11/28/20 08:50 Pulse Ox 92 L 11/28/20 08:50 Intake & Output 11/27/20 11/28/20 11/28/20 18:59 06:59 18:59 Intake Total 130.343 8236.538 486.161 Balance 128.426 3896.538 486.161 Weight 96.5 kg Intake: Intake, IV Titration 340.576 31.538 6.161 Amount Insulin Regular 100 unit 40.576 31.538 6.161 In Sodium Chloride 0.9% 100 ml @ Titrate IV .Q0M [facility] Rx#:[id number] Remdesivir 100 mg In 250 Sodium Chloride 0.9% 250 ml @ 250 mls/hr IVPB DAILY@1100 [facility] Rx#: [id number] cefTRIAXone 1 gm In 50 Sodium Chloride 0.9% 50 ml @ 100 mls/hr IVPB Q24HR [facility] Rx#:[id number] Oral 1440 480 Other: Voiding Method Urinal Urinal # Voids 5 - Exam - Constitutional General appearance: average body habitus, cooperative, disheveled - EENT Eyes: EOMI, PERRLA - Neck Neck: normal ROM Carotids: bilateral: upstroke normal Thyroid: bilateral: normal size - Respiratory Respiratory: bilateral: diminished, rales - Cardiovascular Rhythm: regular Heart sounds: normal: S1, S2 - Gastrointestinal General gastrointestinal: normal bowel sounds - Neurologic Neurologic: CNII-XII intact - Musculoskeletal Musculoskeletal: gait normal, generalized weakness, strength equal bilaterally - Psychiatric Psychiatric: A&O x's 3, appropriate affect, intact judgment & insight - Labs CBC & Chem 7: 11/27/20 06:59 11/27/20 06:59 Labs: Abnormal Lab Results - Last 24 Hours (Table) 11/27/20 11/27/20 11/27/20 Range/Units 06:59 11:08 12:30 POC Glucose (mg/dL) 285 H 254 H (75-99) mg/dL Ferritin 1994.6 H (22.0-322.0) ng/mL 11/27/20 11/27/20 11/27/20 Range/Units 14:24 17:57 19:10 POC Glucose (mg/dL) 240 H 138 H 216 H (75-99) mg/dL Ferritin (22.0-322.0) ng/mL 11/27/20 11/27/20 11/28/20 Range/Units 21:17 23:04 01:01 POC Glucose (mg/dL) 269 H 245 H 196 H (75-99) mg/dL Ferritin (22.0-322.0) ng/mL 11/28/20 11/28/20 11/28/20 Range/Units 03:19 05:59 07:11 POC Glucose (mg/dL) 165 H 176 H 196 H (75-99) mg/dL Ferritin (22.0-322.0) ng/mL 11/28/20 Range/Units 09:03 POC Glucose (mg/dL) 354 H (75-99) mg/dL Ferritin (22.0-322.0) ng/mL Microbiology - Last 24 Hours (Table) 11/24/20 21:05 Blood Culture - Preliminary Blood No Growth after 72 hours Assessment and Plan Assessment: Acute hypoxic respiratory failure due to covert 19 pneumonia Acute dilated cardiomyopathy differential diagnoses covid 19 myocarditis/cardiomyopathy versus diffuse coronary artery disease given presence of multiple risk factors Associated bacterial pneumonia secondary cannot be excluded Acute kidney injury Uncontrolled diabetes on insulin drip now Elevated d-dimer History of hypertension hypertensive cardiovascular disease Bilateral pleural effusion Plan: Continue afterload reducing agent Continue patient on high flow oxygen with airvo, aim for saturation 90% and above Decadron 6 mg IV q12 Continue Lovenox 40 mg IV every 12 IV REMdesivir Convalescent plasma Monitor clinical course closely further recommendations pending plan of care as per clinical response of the patient Monitor renal functions closely if creatinine continued to rise may need to stop the VERONA inhibitor Time with Patient: Greater than 30
[2020-11-28] MEDS: REMDESIVIR 100 MG in SODIUM CHLORIDE 0.9% 250 ML IVPB SCH (10:54)
[2020-11-28 11:01] LABS: Glucose,Whole Blood 273 mg/dL (75-99)
--- NOTE | 2020-11-28 11:38 | P.PN ---
Subjective Progress Note Date: 11/28/20 This is a 45-year-old gentleman with past medical history significant for hypertension, asthma, diabetes, patient has tested positive for ayoub virus. Cardiology was initially consulted to see the patient because of abnormality in troponins. 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 Patient was sitting up in the chair this morning, continues to have some mild shortness of breath. Physical examination not performed. 11/19/2020 Patient seen this morning, hemodynamically stable, anticipating possible discharge home tomorrow. We will continue with VERONA inhibitor, beta vince, and Aldactone. Follow-up appointment in the office post discharge. Objective - Vital Signs Vital signs: Vital Signs Temp 97.6 F 11/28/20 08:50 Pulse 78 11/28/20 08:50 Resp 16 11/28/20 08:50 BP 126/71 11/28/20 08:50 Pulse Ox 92 L 11/28/20 08:50 Intake & Output 11/27/20 11/28/20 11/28/20 18:59 06:59 18:59 Intake Total 235.296 2304.538 504.678 Balance 894.293 0688.538 504.678 Weight 96.5 kg Intake: Intake, IV Titration 340.576 31.538 24.678 Amount Insulin Regular 100 unit 40.576 31.538 24.678 In Sodium Chloride 0.9% 100 ml @ Titrate IV .Q0M [facility] Rx#:[id number] Remdesivir 100 mg In 250 Sodium Chloride 0.9% 250 ml @ 250 mls/hr IVPB DAILY@1100 [facility] Rx#: [id number] cefTRIAXone 1 gm In 50 Sodium Chloride 0.9% 50 ml @ 100 mls/hr IVPB Q24HR [facility] Rx#:[id number] Oral 1440 480 Other: Voiding Method Urinal Urinal # Voids 5 - Exam Physical examination not performed. - Labs CBC & Chem 7: 11/27/20 06:59 11/27/20 06:59 Labs: Abnormal Lab Results - Last 24 Hours (Table) 11/27/20 11/27/20 11/27/20 Range/Units 06:59 12:30 14:24 POC Glucose (mg/dL) 254 H 240 H (75-99) mg/dL Ferritin 1994.6 H (22.0-322.0) ng/mL 11/27/20 11/27/20 11/27/20 Range/Units 17:57 19:10 21:17 POC Glucose (mg/dL) 138 H 216 H 269 H (75-99) mg/dL Ferritin (22.0-322.0) ng/mL 11/27/20 11/28/20 11/28/20 Range/Units 23:04 01:01 03:19 POC Glucose (mg/dL) 245 H 196 H 165 H (75-99) mg/dL Ferritin (22.0-322.0) ng/mL 11/28/20 11/28/20 11/28/20 Range/Units 05:59 07:11 09:03 POC Glucose (mg/dL) 176 H 196 H 354 H (75-99) mg/dL Ferritin (22.0-322.0) ng/mL 11/28/20 Range/Units 10:59 POC Glucose (mg/dL) 273 H (75-99) mg/dL Ferritin (22.0-322.0) ng/mL Microbiology - Last 24 Hours (Table) 11/24/20 21:05 Blood Culture - Preliminary Blood No Growth after 72 hours Assessment and Plan Plan: Assessment and plan #1 COVID 19 pneumonia #2 bilateral pleural effusion #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 Planning for possible discharge tomorrow. DNP note has been reviewed, I agree with a documented findings and plan of care. Patient was seen and examined.
[2020-11-28 12:59] LABS: Glucose,Whole Blood 195 mg/dL (75-99)
--- NOTE | 2020-11-28 13:24 | PN ---
PROGRESS NOTE The patient is seen for followup for acute kidney injury. He is currently being treated for Covid pneumonia. Labs are not available yet from today. I do not see them ordered. Overall, patient states he is feeling better. His shortness of breath is improved. Patient has had good urine output. He is currently sitting out of bed on a bedside chair. He remains on high-flow oxygen via nasal cannula. PHYSICAL EXAMINATION: On examination today, blood pressure was 126/71, heart rate 78 per minute. Patient is afebrile. He appears euvolemic. Heart and lungs are not examined. No edema noted lower extremities. IRON SETTER exam grossly intact. LABS: From yesterday show serum creatinine 1.6. No labs available today. ASSESSMENT: 1. Acute kidney injury acute tubular necrosis associated with underlying COVID-19 infection as well as secondary to hypotension, currently nonoliguric. Check labs today. Patient is not on any IV fluids. He is maintained on low dose of VERONA inhibitors for congestive heart failure and severe cardiomyopathy. 2. Cardiomyopathy, ejection fraction noted to be 20 to 25% on recent echocardiogram, most likely possibly viral. 3. Covid 19 pneumonia maintained on Remdesivir and steroids as well as Zithromax. PLAN: Check labs today. Monitor electrolytes. Repeat labs in a.m. MMODL / IJN: [id number] /
[2020-11-28 14:08] LABS: Calcium 7.2 mg/dL (8.4-10.2); Potassium 4.4 mmol/L (3.5-5.1)
[2020-11-28 15:37] LABS: Glucose,Whole Blood 266 mg/dL (75-99)
[2020-11-28 17:28] LABS: Glucose,Whole Blood 241 mg/dL (75-99)
[2020-11-28 19:29] LABS: Glucose,Whole Blood 244 mg/dL (75-99)
[2020-11-28] MEDS: MELATONIN 5 MG TABLET PO SCH (21:01)
[2020-11-28 21:30] LABS: Glucose,Whole Blood 236 mg/dL (75-99)
[2020-11-28 23:22] LABS: Glucose,Whole Blood 213 mg/dL (75-99)
--- NOTE | 2020-11-28 23:40 | P.PN ---
Subjective Progress Note Date: 11/27/20 Principal diagnosis: Acute COVID-19 pneumonia Shortness of breath/nonproductive cough/generalized malaise and fatigue 11/26/20 Evaluated 45-year-old male this a.m. Patient sitting in chair with high-flow supplemental oxygen-aivro @ 35 L; patient able to carry on a conversation with mild dyspnea noted. Patient continues endorse shortness of breath at rest, extreme dyspnea with exertion, chest discomfort, chills, nausea. 11/27/2020 Patient is currently resting in the bed comfortably. Patient states that she feels better today. Requiring Airvo with FiO2 60%. Pulmonary is on board. Patient is being continued dexamethasone, Lovenox and remdesivir. Patient does have cardiomyopathy. Ejection fraction 20 to 25%. Patient has been afebrile. No nausea vomiting or abdominal pain or diarrhea. Tolerating oral diet.. Objective - Vital Signs Vital signs: Vital Signs Temp 97.2 F L 11/27/20 16:35 Pulse 77 11/27/20 16:35 Resp 18 11/27/20 16:35 BP 118/74 11/27/20 16:35 Pulse Ox 94 L 11/27/20 16:35 Intake & Output 11/27/20 11/27/20 11/28/20 06:59 18:59 06:59 Intake Total 22.808 340.576 0 Output Total 700 Balance -677.192 340.576 0 Intake: Intake, IV Titration 22.808 340.576 0 Amount Insulin Regular 100 unit 22.808 40.576 0 In Sodium Chloride 0.9% 100 ml @ Titrate IV .Q0M [facility] Rx#:[id number] Remdesivir 100 mg In 250 Sodium Chloride 0.9% 250 ml @ 250 mls/hr IVPB DAILY@1100 [facility] Rx#: [id number] cefTRIAXone 1 gm In 50 Sodium Chloride 0.9% 50 ml @ 100 mls/hr IVPB Q24HR [facility] Rx#:[id number] Output: Urine 700 Other: Voiding Method Urinal - Exam PHYSICAL EXAMINATION: Patient is lying in the bed comfortably, no acute distress, awake alert and oriented.. HEENT: Normocephalic. Neck is supple. Pupils reactive. Nostrils clear. Oral cavity is moist. Ears reveal no drainage. Neck reveals no JVD, carotid bruits, or thyromegaly. CHEST EXAMINATION: Trachea is central. Symmetrical expansion. Bibasilar diminished air entry.Coarse breath sounds.. CARDIAC: Normal S1, S2 with no gallops. No murmurs ABDOMEN: Soft. Bowel sounds normal. No organomegaly. No abdominal bruits. Extremities: reveal no edema. No clubbing or cyanosis Neurologically awake, alert, oriented x3 with well-coordinated movements. No focal deficits noted Skin: No rash or skin lesions. Psychiatric: Coperative. Nonsuicidal Musculoskeletal: No joint swelling or deformity. Normal range of motion. - Labs CBC & Chem 7: 11/27/20 06:59 11/28/20 13:30 Labs: Abnormal Lab Results - Last 24 Hours (Table) 11/26/20 11/27/20 11/27/20 Range/Units 22:41 00:31 02:35 Lymphocytes # (1.0-4.8) k/uL Fibrinogen (200-500) mg/dL Sodium (137-145) mmol/L BUN (9-20) mg/dL Creatinine (0.66-1.25) mg/dL Glucose (74-99) mg/dL POC Glucose (mg/dL) 164 H 150 H 131 H (75-99) mg/dL Calcium (8.4-10.2) mg/dL Magnesium (1.6-2.3) mg/dL Ferritin (22.0-322.0) ng/mL AST (17-59) U/L Lactate Dehydrogenase (313-618) U/L C-Reactive Protein (<10.0) mg/L Total Protein (6.3-8.2) g/dL Albumin (3.5-5.0) g/dL 11/27/20 11/27/20 11/27/20 Range/Units 04:36 06:37 06:59 Lymphocytes # 0.6 L (1.0-4.8) k/uL Fibrinogen (200-500) mg/dL Sodium (137-145) mmol/L BUN (9-20) mg/dL Creatinine (0.66-1.25) mg/dL Glucose (74-99) mg/dL POC Glucose (mg/dL) 173 H 171 H (75-99) mg/dL Calcium (8.4-10.2) mg/dL Magnesium (1.6-2.3) mg/dL Ferritin (22.0-322.0) ng/mL AST (17-59) U/L Lactate Dehydrogenase (313-618) U/L C-Reactive Protein (<10.0) mg/L Total Protein (6.3-8.2) g/dL Albumin (3.5-5.0) g/dL 11/27/20 11/27/20 11/27/20 Range/Units 06:59 06:59 08:49 Lymphocytes # (1.0-4.8) k/uL Fibrinogen 560 H (200-500) mg/dL Sodium 132 L (137-145) mmol/L BUN 60 H (9-20) mg/dL Creatinine 1.63 H (0.66-1.25) mg/dL Glucose 147 H (74-99) mg/dL POC Glucose (mg/dL) 249 H (75-99) mg/dL Calcium 7.0 L (8.4-10.2) mg/dL Magnesium 2.7 H (1.6-2.3) mg/dL Ferritin 1994.6 H (22.0-322.0) ng/mL AST 90 H (17-59) U/L Lactate Dehydrogenase 1775 H (313-618) U/L C-Reactive Protein 42.7 H (<10.0) mg/L Total Protein 5.2 L (6.3-8.2) g/dL Albumin 2.5 L (3.5-5.0) g/dL 11/27/20 11/27/20 11/27/20 Range/Units 11:08 12:30 14:24 Lymphocytes # (1.0-4.8) k/uL Fibrinogen (200-500) mg/dL Sodium (137-145) mmol/L BUN (9-20) mg/dL Creatinine (0.66-1.25) mg/dL Glucose (74-99) mg/dL POC Glucose (mg/dL) 285 H 254 H 240 H (75-99) mg/dL Calcium (8.4-10.2) mg/dL Magnesium (1.6-2.3) mg/dL Ferritin (22.0-322.0) ng/mL AST (17-59) U/L Lactate Dehydrogenase (313-618) U/L C-Reactive Protein (<10.0) mg/L Total Protein (6.3-8.2) g/dL Albumin (3.5-5.0) g/dL 11/27/20 11/27/20 11/27/20 Range/Units 17:57 19:10 21:17 Lymphocytes # (1.0-4.8) k/uL Fibrinogen (200-500) mg/dL Sodium (137-145) mmol/L BUN (9-20) mg/dL Creatinine (0.66-1.25) mg/dL Glucose (74-99) mg/dL POC Glucose (mg/dL) 138 H 216 H 269 H (75-99) mg/dL Calcium (8.4-10.2) mg/dL Magnesium (1.6-2.3) mg/dL Ferritin (22.0-322.0) ng/mL AST (17-59) U/L Lactate Dehydrogenase (313-618) U/L C-Reactive Protein (<10.0) mg/L Total Protein (6.3-8.2) g/dL Albumin (3.5-5.0) g/dL Microbiology - Last 24 Hours (Table) 11/24/20 21:05 Blood Culture - Preliminary Blood No Growth after 48 hours Assessment and Plan Assessment: Acute COVID-19 virus pneumonia. Acute hypoxic respiratory failure secondary to Covid pneumonia. Acute CHF with ejection fraction 20 to 25%. Acute myocarditis/cardiomyopathy likely due to COVID-19 infection Hypertension Acute kidney injury Diabetes type 2 DVT prophylaxis patient is Lovenox. Plan: Patient will be continued on dexamethasone, Lovenox and remdesivir course. Antibiotic weeks. Patient is on metoprolol, lisinopril and spironolactone on board. Continue supportive care. Titrate down FiO2. Further recommendations based on clinical course. Time with Patient: Greater than 30
--- NOTE | 2020-11-28 23:42 | P.PN ---
Subjective Progress Note Date: 11/28/20 Principal diagnosis: Acute COVID-19 pneumonia Shortness of breath/nonproductive cough/generalized malaise and fatigue 11/26/20 Evaluated 45-year-old male this a.m. Patient sitting in chair with high-flow supplemental oxygen-aivro @ 35 L; patient able to carry on a conversation with mild dyspnea noted. Patient continues endorse shortness of breath at rest, extreme dyspnea with exertion, chest discomfort, chills, nausea. 11/27/2020 Patient is currently resting in the bed comfortably. Patient states that she feels better today. Requiring Airvo with FiO2 60%. Pulmonary is on board. Patient is being continued dexamethasone, Lovenox and remdesivir. Patient does have cardiomyopathy. Ejection fraction 20 to 25%. Patient has been afebrile. No nausea vomiting or abdominal pain or diarrhea. Tolerating oral diet.. 11/28/2020 Patient is currently awake alert oriented x3. No complaints of chest pain. Shortness of breath is better. Patient is on airvo 50% FiO2. No complaints of chest pain. No fever no chills. Patient is being continued metoprolol, lisinopril and Aldactone. Continued on antibiotics and remdesivir course. On dexamethasone and Lovenox. Pulmonary and cardiology on board. No nausea vomiting abdominal pain or diarrhea. Tolerating oral diet. Active Medications Acetaminophen (Acetaminophen Tab 325 Mg Tab) 650 mg PO Q4HR PRN PRN Reason: Fever>101 Last Admin: 11/28/20 08:56 Dose: 650 mg Documented by: Albuterol Sulfate (Albuterol Hfa Inhaler) 2 puff INHALATION RT-QID [facility] Last Admin: 11/28/20 21:42 Dose: 2 puff Documented by: Albuterol Sulfate (Albuterol Hfa Inhaler) 2 puff INHALATION RT-QID PRN PRN Reason: Shortness Of Breath Or Wheezing Last Admin: 11/26/20 01:47 Dose: 2 puff Documented by: Alprazolam (Alprazolam 0.25 Mg Tab) 0.25 mg PO BID PRN PRN Reason: Anxiety Last Admin: 11/28/20 21:14 Dose: 0.25 mg Documented by: Ascorbic Acid (Ascorbic Acid 500 Mg Tab) 1,000 mg PO TID [facility] Last Admin: 11/28/20 21:01 Dose: 1,000 mg Documented by: Aspirin (Aspirin 81 Mg) 81 mg PO DAILY [facility] Last Admin: 11/28/20 08:51 Dose: 81 mg Documented by: Azithromycin (Azithromycin 500 Mg Tab) 500 mg PO DAILY [facility] Last Admin: 11/28/20 08:51 Dose: 500 mg Documented by: Cholecalciferol (Cholecalciferol 25 Mcg (1000 Iu) Tablet) 50 mcg PO DAILY [facility] Last Admin: 11/28/20 08:50 Dose: 50 mcg Documented by: Dexamethasone Sodium Phosphate (Dexamethasone Sod Phosphate 10 Mg/Ml 1 Ml Vial) 6 mg IV Q12H [facility] Last Admin: 11/28/20 21:02 Dose: 6 mg Documented by: Enoxaparin Sodium (Enoxaparin 40 Mg/0.4 Ml Syringe) 40 mg SQ BID [facility] Last Admin: 11/28/20 21:02 Dose: 40 mg Documented by: Guaifenesin/Dextromethorphan (Guaifenesin-Dm 600/30mg 1 Each Tab.Er.12h) 1 each PO Q12HR PRN PRN Reason: Cough Last Admin: 11/26/20 20:05 Dose: 1 each Documented by: Remdesivir 100 mg/ Sodium (Chloride) 250 mls @ 250 mls/hr IVPB DAILY@1100 [facility] Stop: 11/29/20 11:59 Last Admin: 11/28/20 10:54 Dose: 250 mls/hr Documented by: Ceftriaxone Sodium 1 gm/ (Sodium Chloride) 50 mls @ 100 mls/hr IVPB Q24HR [facility] Last Admin: 11/28/20 08:51 Dose: 100 mls/hr Documented by: Insulin Human Regular 100 unit (/ Sodium Chloride) 101 mls @ 0 mls/hr IV .Q0M [facility]; Protocol Last Titration: 11/28/20 23:24 Dose: 3 units/hr, 3.03 mls/hr Documented by: Lisinopril (Lisinopril 2.5 Mg Tab) 2.5 mg PO DAILY [facility] Last Admin: 11/28/20 08:50 Dose: 2.5 mg Documented by: Melatonin (Melatonin 5 Mg Tablet) 5 mg PO [facility] Last Admin: 11/28/20 21:01 Dose: 5 mg Documented by: Metoprolol Tartrate (Metoprolol Tartrate 12.5 Mg Tab) 12.5 mg PO BID [facility] Last Admin: 11/28/20 21:01 Dose: 12.5 mg Documented by: Naloxone HCl (Naloxone 0.4 Mg/Ml 1 Ml Vial) 0.2 mg IV Q2M PRN PRN Reason: Opioid Reversal Ondansetron HCl (Ondansetron 4 Mg/2 Ml Vial) 4 mg IVP Q6HR PRN PRN Reason: Nausea And Vomiting Last Admin: 11/27/20 01:39 Dose: 4 mg Documented by: Spironolactone (Spironolactone 25 Mg Tab) 25 mg PO DAILY [facility] Last Admin: 11/28/20 08:50 Dose: 25 mg Documented by: Zinc Sulfate (Zinc Sulfate 220 Mg Cap) 220 mg PO DAILY [facility] Last Admin: 11/28/20 08:50 Dose: 220 mg Documented by: Objective - Vital Signs Vital signs: Vital Signs Temp 97.9 F 11/28/20 11:53 Pulse 77 11/28/20 11:53 Resp 16 11/28/20 11:53 BP 106/63 11/28/20 11:53 Pulse Ox 94 L 11/28/20 11:53 Intake & Output 11/27/20 11/28/20 11/28/20 18:59 06:59 18:59 Intake Total 122.771 0136.538 517.051 Output Total 300 Balance 570.608 0686.538 217.051 Weight 96.5 kg Intake: Intake, IV Titration 340.576 31.538 37.051 Amount Insulin Regular 100 unit 40.576 31.538 37.051 In Sodium Chloride 0.9% 100 ml @ Titrate IV .Q0M [facility] Rx#:[id number] Remdesivir 100 mg In 250 Sodium Chloride 0.9% 250 ml @ 250 mls/hr IVPB DAILY@1100 [facility] Rx#: [id number] cefTRIAXone 1 gm In 50 Sodium Chloride 0.9% 50 ml @ 100 mls/hr IVPB Q24HR [facility] Rx#:[id number] Oral 1440 480 Output: Urine 300 Other: Voiding Method Urinal Urinal # Voids 5 - Exam PHYSICAL EXAMINATION: Patient is lying in the bed comfortably, no acute distress, awake alert and oriented.. HEENT: Normocephalic. Neck is supple. Pupils reactive. Nostrils clear. Oral cavity is moist. Ears reveal no drainage. Neck reveals no JVD, carotid bruits, or thyromegaly. CHEST EXAMINATION: Trachea is central. Symmetrical expansion. Bibasilar diminished air entry.Coarse breath sounds.. CARDIAC: Normal S1, S2 with no gallops. No murmurs ABDOMEN: Soft. Bowel sounds normal. No organomegaly. No abdominal bruits. Extremities: reveal no edema. No clubbing or cyanosis Neurologically awake, alert, oriented x3 with well-coordinated movements. No focal deficits noted Skin: No rash or skin lesions. Psychiatric: Coperative. Nonsuicidal Musculoskeletal: No joint swelling or deformity. Normal range of motion. - Labs CBC & Chem 7: 11/27/20 06:59 11/28/20 13:30 Labs: Abnormal Lab Results - Last 24 Hours (Table) 11/27/20 11/27/20 11/27/20 Range/Units 14:24 17:57 19:10 POC Glucose (mg/dL) 240 H 138 H 216 H (75-99) mg/dL 11/27/20 11/27/20 11/28/20 Range/Units 21:17 23:04 01:01 POC Glucose (mg/dL) 269 H 245 H 196 H (75-99) mg/dL 11/28/20 11/28/20 11/28/20 Range/Units 03:19 05:59 07:11 POC Glucose (mg/dL) 165 H 176 H 196 H (75-99) mg/dL 11/28/20 11/28/20 11/28/20 Range/Units 09:03 10:59 12:58 POC Glucose (mg/dL) 354 H 273 H 195 H (75-99) mg/dL Microbiology - Last 24 Hours (Table) 11/24/20 21:05 Blood Culture - Preliminary Blood No Growth after 72 hours Assessment and Plan Assessment: Acute COVID-19 virus pneumonia. Acute hypoxic respiratory failure secondary to Covid pneumonia. Possible underlying secondary bacterial pneumonia cannot be excluded. Acute CHF with ejection fraction 20 to 25%. Acute myocarditis/cardiomyopathy likely due to COVID-19 infection Hypertension Acute kidney injury Diabetes type 2 DVT prophylaxis patient is Lovenox. Plan: Patient will be continued on dexamethasone, Lovenox and remdesivir course. Antibiotic weeks. Patient is on metoprolol, lisinopril and spironolactone on board. Continue supportive care. Titrate down FiO2. Further recommendations based on clinical course. Time with Patient: Greater than 30
[2020-11-29 01:38] LABS: Glucose,Whole Blood 164 mg/dL (75-99)
[2020-11-29] MEDS: INSULIN REGULAR 100 UNIT in SODIUM CHLORIDE 0.9% 100 ML IV SCH (02:12)
[2020-11-29 03:29] LABS: Glucose,Whole Blood 238 mg/dL (75-99)
[2020-11-29 05:41] LABS: Glucose,Whole Blood 198 mg/dL (75-99)
[2020-11-29 07:32] LABS: Glucose,Whole Blood 184 mg/dL (75-99)
[2020-11-29] MEDS: ALBUTEROL HFA INHALER INHALATION SCH ×4 (07:47→20:01)
[2020-11-29] MEDS: SPIRONOLACTONE 25 MG TAB PO SCH (08:10)
[2020-11-29] MEDS: ASPIRIN 81 MG PO SCH (08:10)
[2020-11-29] MEDS: AZITHROMYCIN 500 MG TAB PO SCH (08:10)
[2020-11-29] MEDS: METOPROLOL TARTRATE 12.5 MG TAB PO SCH (08:10)
[2020-11-29] MEDS: ZINC SULFATE 220 MG CAP PO SCH (08:10)
[2020-11-29] MEDS: CHOLECALCIFEROL 25 MCG (1000 IU) TABLET PO SCH (08:10)
[2020-11-29] MEDS: CALCIUM CARBONATE 500 MG CHEWABLE PO PRN ×2 (08:10→17:45)
[2020-11-29] MEDS: ASCORBIC ACID 500 MG TAB PO SCH ×3 (08:10→21:43)
[2020-11-29] MEDS: DEXAMETHASONE SOD PHOSPHATE 10 MG/ML 1 ML VIAL IV SCH ×2 (08:11→21:43)
[2020-11-29] MEDS: ENOXAPARIN 40 MG/0.4 ML SYRINGE SQ SCH ×2 (08:11→21:43)
[2020-11-29] MEDS: ACETAMINOPHEN TAB 325 MG TAB PO PRN (08:11)
[2020-11-29] MEDS: PANTOPRAZOLE 40 MG TABLET PO SCH (08:14)
[2020-11-29 08:16] LABS: African American GFR (CKD) >90 (>60 ml/min/1.73 sqM); Anion Gap 5 mmol/L; Blood Urea Nitrogen 37 mg/dL (9-20); Calcium 7.1 mg/dL (8.4-10.2); Carbon Dioxide 24 mmol/L (22-30); Chloride 102 mmol/L (98-107); Glucose 202 mg/dL (74-99); LDH 1781 U/L (313-618); Non-African American GFR(CKD) >90 (>60 ml/min/1.73 sqM); Potassium 4.3 mmol/L (3.5-5.1); Sodium 131 mmol/L (137-145)
[2020-11-29 08:18] LABS: Basophils % (A) 0 %; Eosinophils % (A) 0 %; HGB 15.3 gm/dL (13.0-17.5); Lymphocytes # (A) 0.4 k/uL (1.0-4.8); Lymphocytes % (A) 5 %; MCH 30.6 pg (25.0-35.0); Monocytes # (A) 0.6 k/uL (0-1.0); Monocytes % (A) 6 %; Neutrophils # (A) 8.3 k/uL (1.3-7.7); Neutrophils % (A) 88 %; Platelet Count 209 k/uL (150-450); RDW 13.2 % (11.5-15.5); WBC 9.4 k/uL (3.8-10.6)
[2020-11-29 09:27] LABS: Glucose,Whole Blood 284 mg/dL (75-99)
[2020-11-29] MEDS ORDERED: FUROSEMIDE 10 MG/ML 4 ML VIAL IV STA (09:40)
--- NOTE | 2020-11-29 09:55 | P.PN ---
Subjective 11/26/20 Evaluated 45-year-old male this a.m. Patient sitting in chair with high-flow supplemental oxygen-aivro @ 35 L; patient able to carry on a conversation with mild dyspnea noted. Patient continues endorse shortness of breath at rest, extreme dyspnea with exertion, chest discomfort, chills, nausea. 11/27/2020 Patient is currently resting in the bed comfortably. Patient states that she feels better today. Requiring Airvo with FiO2 60%. Pulmonary is on board. Patient is being continued dexamethasone, Lovenox and remdesivir. Patient does have cardiomyopathy. Ejection fraction 20 to 25%. Patient has been afebrile. No nausea vomiting or abdominal pain or diarrhea. Tolerating oral diet.. 11/28/2020 Patient is currently awake alert oriented x3. No complaints of chest pain. Shortness of breath is better. Patient is on airvo 50% FiO2. No complaints of chest pain. No fever no chills. Patient is being continued metoprolol, lisinopril and Aldactone. Continued on antibiotics and remdesivir course. On dexamethasone and Lovenox. Pulmonary and cardiology on board. No nausea vomiting abdominal pain or diarrhea. Tolerating oral diet. Subjective: 11/29/2020 This is a pleasant 45 years old male who presents with bilateral covid With pneumonia with possible superimposed bacterial infection with acute hypoxic respiratory failure also with application with acute dilated cardiomyopathy and possible Covid viral myocarditis with ejection fraction as low as 20-25%, thought secondary to Covid. Also patient with acute kidney injury which could be caused by the Covid infection patient is currently covered with Zithromax, ceftriaxone, also he is on Decadron, insulin drip for hyperglycemia also on Lovenox 40 mg twice a day. Is getting remdesivir , and status post convalescent plasma as per documentation Patient still shortness of breath although he feels some improvement. Also he has some coughing but no chest pain. Also he has some neck pain but no weakness or numbness.. No headache He had some heartburn and Protonix and Tums are provided. He had diarrhea but stopped. Appetite is low his oxygen saturation is 91% on 45% of airflow Patient rest of Vitas looks stable. CBC and BMP are stable of the edge is the same elevated. C-reactive protein coming down slowly falling down to 18 which is still elevated but improved Review of systems Chest wall tenderness of systems -CONSTITUTIONAL: No fever, no vitiligo. Positive for fatigue HEENT: No recent visual problems or hearing problems. Denied any sore throat. CARDIOVASCULAR: No orthopnea, PND, no palpitations, no syncope. PULMONARY: No shortness of breath, no cough, no hemoptysis. GASTROINTESTINAL: No diarrhea, no nausea, no vomiting, no abdominal pain. Normoactive bowel sounds. Active Medications Generic Name Dose Route Start Last Admin Trade Name Freq PRN Reason Stop Dose Admin Acetaminophen 650 mg 11/24/20 20:27 11/29/20 08:11 Acetaminophen Tab 325 Mg Tab PO 650 mg Q4HR PRN Administration Fever>101 Albuterol Sulfate 2 puff 11/25/20 08:00 11/29/20 07:47 Albuterol Hfa Inhaler INHALATION 2 puff RT-QID [facility]AN[facility] Administration Albuterol Sulfate 2 puff 11/26/20 01:42 11/26/20 01:47 Albuterol Hfa Inhaler INHALATION 2 puff RT-QID PRN Administration Shortness Of Breath Or Wheezing Alprazolam 0.25 mg 11/26/20 15:17 11/28/20 21:14 Alprazolam 0.25 Mg Tab PO 0.25 mg BID PRN Administration Anxiety Ascorbic Acid 1,000 mg 11/24/20 22:00 11/29/20 08:10 Ascorbic Acid 500 Mg Tab PO 1,000 mg TID HEMANTH Administration Aspirin 81 mg 11/25/20 09:00 11/29/20 08:10 Aspirin 81 Mg PO 81 mg DAILY H[facility]AN[facility] Administration Azithromycin 500 mg 11/25/20 09:45 11/29/20 08:10 Azithromycin 500 Mg Tab PO 500 mg DAILY [facility]AN[facility] Administration Calcium Carbonate/Glycine 1,000 mg 11/29/20 07:59 11/29/20 08:10 Calcium Carbonate 500 Mg Chewable PO 1,000 mg QID PRN Administration Heartburn Cholecalciferol 50 mcg 11/24/20 21:00 11/29/20 08:10 Cholecalciferol 25 Mcg (1000 Iu) Tablet PO 50 mcg DAILY H[facility]ANTH Administration Dexamethasone Sodium Phosphate 6 mg 11/25/20 09:00 11/29/20 08:11 Dexamethasone Sod Phosphate 10 Mg/Ml 1 Ml Vial IV 6 mg Q12H [facility] Administration Enoxaparin Sodium 40 mg 11/25/20 09:00 11/29/20 08:11 Enoxaparin 40 Mg/0.4 Ml Syringe SQ 40 mg BID HEMANTH Administration Guaifenesin/Dextromethorphan 1 each 11/26/20 15:12 11/26/20 20:05 Guaifenesin-Dm 600/30mg 1 Each Tab.Er.12h PO 1 each Q12HR PRN Administration Cough Remdesivir 100 mg/ Sodium 250 mls @ 250 mls/hr 11/26/20 11:00 11/28/20 10:54 Chloride IVPB 11/29/20 11:59 250 mls/hr DAILY@1100 [facility] Administration Ceftriaxone Sodium 1 gm/ 50 mls @ 100 mls/hr 11/25/20 09:45 11/29/20 08:09 Sodium Chloride IVPB 100 mls/hr Q24HR [facility]AN[facility] Administration Insulin Human Regular 100 unit 101 mls @ 0 mls/hr 11/25/20 21:30 11/29/20 07:44 / Sodium Chloride IV 2 units/hr .Q0M H[facility]ANTH 2.02 mls/hr Titration Protocol Titrate Lisinopril 5 mg 11/30/20 09:00 Lisinopril 5 Mg Tab PO DAILY HEMANTH Melatonin 5 mg 11/24/20 22:15 11/28/20 21:01 Melatonin 5 Mg Tablet PO 5 mg HS [facility]AN[facility] Administration Metoprolol Tartrate 25 mg 11/29/20 21:00 Metoprolol Tartrate 25 Mg Tab PO BID [facility]AN[facility] Naloxone HCl 0.2 mg 11/24/20 18:37 Naloxone 0.4 Mg/Ml 1 Ml Vial IV Q2M PRN Opioid Reversal Ondansetron HCl 4 mg 11/27/20 01:35 11/27/20 01:39 Ondansetron 4 Mg/2 Ml Vial IVP 4 mg Q6HR PRN Administration Nausea And Vomiting Pantoprazole Sodium 40 mg 11/29/20 08:00 11/29/20 08:14 Pantoprazole 40 Mg Tablet PO 40 mg [id number] H[facility]AN[facility] Administration Spironolactone 25 mg 11/25/20 09:00 11/29/20 08:10 Spironolactone 25 Mg Tab PO 25 mg DAILY [facility]AN[facility] Administration Zinc Sulfate 220 mg 11/25/20 21:00 11/29/20 08:10 Zinc Sulfate 220 Mg Cap PO 220 mg DAILY H[facility]ANTH Administration Objective - Vital Signs Vital signs: Vital Signs Temp 98.2 F 11/29/20 08:00 Pulse 81 11/29/20 08:00 Resp 17 11/29/20 08:00 BP 132/64 11/29/20 08:00 Pulse Ox 91 L 11/29/20 08:00 Intake & Output 11/28/20 11/29/20 11/29/20 18:59 06:59 18:59 Intake Total 1011.309 41.656 129.107 Output Total 300 480 500 Balance 711.309 -438.344 -370.893 Weight 98.5 kg Intake: Intake, IV Titration 51.309 41.656 4.107 Amount Insulin Regular 100 unit 51.309 41.656 4.107 In Sodium Chloride 0.9% 100 ml @ Titrate IV .Q0M [facility] Rx#:[id number] Oral 960 125 Output: Urine 300 480 500 Other: Voiding Method Urinal - Exam GENERAL: The patient is alert and oriented x3, not in any acute distress. Well developed, well nourished. HEENT: Pupils are round and equally reacting to light. EOMI. No scleral icterus. No conjunctival pallor. Normocephalic, atraumatic. No pharyngeal erythema. No thyromegaly. CARDIOVASCULAR: S1 and S2 present. No murmurs, rubs, or gallops. -PULMONARY: Chest is clear to auscultation, bilateral scattered wheezing and crepitation ABDOMEN: Soft, nontender, nondistended, normoactive bowel sounds. No palpable organomegaly. MUSCULOSKELETAL: No joint swelling or deformity. EXTREMITIES: No cyanosis, clubbing, or pedal edema. NEUROLOGICAL: Gross neurological examination did not reveal any focal deficits. SKIN: No rashes. no petechiae. - Labs CBC & Chem 7: 11/29/20 07:02 11/29/20 07:02 Labs: Abnormal Lab Results - Last 24 Hours (Table) 11/28/20 11/28/20 11/28/20 Range/Units 10:59 12:58 13:30 Neutrophils # (1.3-7.7) k/uL Lymphocytes # (1.0-4.8) k/uL Sodium 133 L (137-145) mmol/L BUN 48 H (9-20) mg/dL Creatinine 1.31 H (0.66-1.25) mg/dL Glucose 196 H (74-99) mg/dL POC Glucose (mg/dL) 273 H 195 H (75-99) mg/dL Calcium 7.2 L (8.4-10.2) mg/dL Lactate Dehydrogenase (313-618) U/L C-Reactive Protein (<10.0) mg/L 11/28/20 11/28/20 11/28/20 Range/Units 15:35 17:27 19:27 Neutrophils # (1.3-7.7) k/uL Lymphocytes # (1.0-4.8) k/uL Sodium (137-145) mmol/L BUN (9-20) mg/dL Creatinine (0.66-1.25) mg/dL Glucose (74-99) mg/dL POC Glucose (mg/dL) 266 H 241 H 244 H (75-99) mg/dL Calcium (8.4-10.2) mg/dL Lactate Dehydrogenase (313-618) U/L C-Reactive Protein (<10.0) mg/L 11/28/20 11/28/20 11/29/20 Range/Units 21:29 23:20 01:37 Neutrophils # (1.3-7.7) k/uL Lymphocytes # (1.0-4.8) k/uL Sodium (137-145) mmol/L BUN (9-20) mg/dL Creatinine (0.66-1.25) mg/dL Glucose (74-99) mg/dL POC Glucose (mg/dL) 236 H 213 H 164 H (75-99) mg/dL Calcium (8.4-10.2) mg/dL Lactate Dehydrogenase (313-618) U/L C-Reactive Protein (<10.0) mg/L 11/29/20 11/29/20 11/29/20 Range/Units 03:28 05:39 07:02 Neutrophils # (1.3-7.7) k/uL Lymphocytes # (1.0-4.8) k/uL Sodium 131 L (137-145) mmol/L BUN 37 H (9-20) mg/dL Creatinine (0.66-1.25) mg/dL Glucose 202 H (74-99) mg/dL POC Glucose (mg/dL) 238 H 198 H (75-99) mg/dL Calcium 7.1 L (8.4-10.2) mg/dL Lactate Dehydrogenase 1781 H (313-618) U/L C-Reactive Protein 18.0 H (<10.0) mg/L 11/29/20 11/29/20 11/29/20 Range/Units 07:02 07:31 09:25 Neutrophils # 8.3 H (1.3-7.7) k/uL Lymphocytes # 0.4 L (1.0-4.8) k/uL Sodium (137-145) mmol/L BUN (9-20) mg/dL Creatinine (0.66-1.25) mg/dL Glucose (74-99) mg/dL POC Glucose (mg/dL) 184 H 284 H (75-99) mg/dL Calcium (8.4-10.2) mg/dL Lactate Dehydrogenase (313-618) U/L C-Reactive Protein (<10.0) mg/L Microbiology - Last 24 Hours (Table) 11/24/20 21:05 Blood Culture - Preliminary Blood No Growth after 96 hours Assessment and Plan Assessment: Acute COVID-19 virus pneumonia. Acute hypoxic respiratory failure secondary to Covid pneumonia. Possible underlying secondary bacterial pneumonia cannot be excluded. Acute CHF with ejection fraction 20 to 25%. Acute myocarditis/cardiomyopathy likely due to COVID-19 infection Hypertension Acute kidney injury Diabetes type 2 Plan: This is a pleasant 45 years old male who presents with Covid pneumonia and possible bacterial infection. New with antibiotic per ID team, currently on ceftriaxone and Zithromax. Continue with the cut drawn. Continue with Lovenox Continue with insulin and monitor glucose. Counts Protonix and Tums. Labs and medication were reviewed.. Continue same treatment. Continue with symptomatic treatment. Resume home medication. Monitor lytes and vitals. DVT and GI prophylaxis. Further recommendationsas per clinical course of the patient DVT prophylaxis: Subcutaneous Lovenox gi Prophylaxis: Ppi Prognosis is guarded
--- NOTE | 2020-11-29 10:57 | P.PN ---
Subjective Progress Note Date: 11/29/20 Principal diagnosis: Acute hypoxic respiratory failure due to covert 19 pneumonia Associated bacterial pneumonia secondary cannot be excluded Acute kidney injury Uncontrolled diabetes Elevated d-dimer History of hypertension hypertensive cardiovascular disease Bilateral pleural effusion 11/29/2020, continued to be short of breath, and denies any chest pain mild nonproductive cough is present, oxygen saturation 97% on 35 L 45% oxygen and aerosolized Ammann labs from today reviewed in BUN/creatinine improved to 37 1.0, sugar also improved 202 range, inflammatory parameters however continued to be opted with C-reactive protein showed downward trend 11/28/2020, patient seen eval examined during the rounds labs reviewed medications reviewed, remains on high flow and aerosolized oxygen with airvo 60%, FiO2 decreased to 55, patient remains on insulin drip for glucose varying from 250-350, last chest x-ray performed yesterday remains stable bilateral diffuse pneumonia, patient remains on afterload reducing agent, labs from today's remains pending, she remains on therapy with IV REM doesn't wear, Decadron, broad-spectrum antibiotics 11/26/2020, patient seen eval examined during the rounds labs reviewed medications reviewed care plan discussed, patient remains on the high flow oxygen with aerosolized 35 L 60%, chest x-ray showed slightly improvement bilaterally, patient also noted to have a significant finding of LV dysfunction and his ejection fraction is 20-25%, mild diastolic dysfunction noted as well, patient has received a single dose of diuretics creatinine remained stable, oxygen saturation is 91-95%, patient refused prone positioning but agree able for sleeping on the sides This is a 45-year-old male with a history of [id number] diabetes mellitus hypertension and likely obstructive sleep apnea, patient is been having shortness of breath which developed into cough and increasing breathing difficulty for last 5 days, patient was diagnosed over positive in urgent care due to shortness of breath came into the hospital for further evaluation, 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, patient was hypoxic noted to have a saturation of 88-89% was admitted into the hospital with shortness of breath, significant labs are sodium of 126 BUN/creatinine is 4111.65, d-dimer is elevated, bilateral pneumonia with pleural effusion seen on chest x-ray, bilateral pleural effusion and extensive bilateral pulmonary infiltrate seen c onsistent with pneumonia on the computed tomography scan negative for pulmonary embolism, chest x-ray performed today continue show diffuse disease right more than the left, currently patient is on airvo 40 L, he is comfortable on that with the saturation 94-95% Objective - Vital Signs Vital signs: Vital Signs Temp 98.2 F 11/29/20 08:00 Pulse 81 11/29/20 08:00 Resp 17 11/29/20 08:00 BP 132/64 11/29/20 08:00 Pulse Ox 91 L 11/29/20 08:00 Intake & Output 11/28/20 11/29/20 11/29/20 18:59 06:59 18:59 Intake Total 1011.309 41.656 133.012 Output Total 300 480 500 Balance 711.309 -438.344 -366.988 Weight 98.5 kg Intake: Intake, IV Titration 51.309 41.656 8.012 Amount Insulin Regular 100 unit 51.309 41.656 8.012 In Sodium Chloride 0.9% 100 ml @ Titrate IV .Q0M [facility] Rx#:[id number] Oral 960 125 Output: Urine 300 480 500 Other: Voiding Method Urinal - Exam - Constitutional General appearance: average body habitus, cooperative, disheveled - EENT Eyes: EOMI, PERRLA - Neck Neck: normal ROM Carotids: bilateral: upstroke normal Thyroid: bilateral: normal size - Respiratory Respiratory: bilateral: diminished, rales - Cardiovascular Rhythm: regular Heart sounds: normal: S1, S2 - Gastrointestinal General gastrointestinal: normal bowel sounds - Neurologic Neurologic: CNII-XII intact - Musculoskeletal Musculoskeletal: gait normal, generalized weakness, strength equal bilaterally - Psychiatric Psychiatric: A&O x's 3, appropriate affect, intact judgment & insight - Labs CBC & Chem 7: 11/29/20 07:02 11/29/20 07:02 Labs: Abnormal Lab Results - Last 24 Hours (Table) 11/28/20 11/28/20 11/28/20 Range/Units 10:59 12:58 13:30 Neutrophils # (1.3-7.7) k/uL Lymphocytes # (1.0-4.8) k/uL Sodium 133 L (137-145) mmol/L BUN 48 H (9-20) mg/dL Creatinine 1.31 H (0.66-1.25) mg/dL Glucose 196 H (74-99) mg/dL POC Glucose (mg/dL) 273 H 195 H (75-99) mg/dL Calcium 7.2 L (8.4-10.2) mg/dL Lactate Dehydrogenase (313-618) U/L C-Reactive Protein (<10.0) mg/L 11/28/20 11/28/20 11/28/20 Range/Units 15:35 17:27 19:27 Neutrophils # (1.3-7.7) k/uL Lymphocytes # (1.0-4.8) k/uL Sodium (137-145) mmol/L BUN (9-20) mg/dL Creatinine (0.66-1.25) mg/dL Glucose (74-99) mg/dL POC Glucose (mg/dL) 266 H 241 H 244 H (75-99) mg/dL Calcium (8.4-10.2) mg/dL Lactate Dehydrogenase (313-618) U/L C-Reactive Protein (<10.0) mg/L 11/28/20 11/28/20 11/29/20 Range/Units 21:29 23:20 01:37 Neutrophils # (1.3-7.7) k/uL Lymphocytes # (1.0-4.8) k/uL Sodium (137-145) mmol/L BUN (9-20) mg/dL Creatinine (0.66-1.25) mg/dL Glucose (74-99) mg/dL POC Glucose (mg/dL) 236 H 213 H 164 H (75-99) mg/dL Calcium (8.4-10.2) mg/dL Lactate Dehydrogenase (313-618) U/L C-Reactive Protein (<10.0) mg/L 11/29/20 11/29/20 11/29/20 Range/Units 03:28 05:39 07:02 Neutrophils # (1.3-7.7) k/uL Lymphocytes # (1.0-4.8) k/uL Sodium 131 L (137-145) mmol/L BUN 37 H (9-20) mg/dL Creatinine (0.66-1.25) mg/dL Glucose 202 H (74-99) mg/dL POC Glucose (mg/dL) 238 H 198 H (75-99) mg/dL Calcium 7.1 L (8.4-10.2) mg/dL Lactate Dehydrogenase 1781 H (313-618) U/L C-Reactive Protein 18.0 H (<10.0) mg/L 11/29/20 11/29/20 11/29/20 Range/Units 07:02 07:31 09:25 Neutrophils # 8.3 H (1.3-7.7) k/uL Lymphocytes # 0.4 L (1.0-4.8) k/uL Sodium (137-145) mmol/L BUN (9-20) mg/dL Creatinine (0.66-1.25) mg/dL Glucose (74-99) mg/dL POC Glucose (mg/dL) 184 H 284 H (75-99) mg/dL Calcium (8.4-10.2) mg/dL Lactate Dehydrogenase (313-618) U/L C-Reactive Protein (<10.0) mg/L Microbiology - Last 24 Hours (Table) 11/24/20 21:05 Blood Culture - Preliminary Blood No Growth after 96 hours Assessment and Plan Assessment: Acute hypoxic respiratory failure due to covert 19 pneumonia Acute dilated cardiomyopathy differential diagnoses covid 19 myocarditis/cardiomyopathy versus diffuse coronary artery disease given presence of multiple risk factors Associated bacterial pneumonia secondary cannot be excluded Acute kidney injury Uncontrolled diabetes on insulin drip now Elevated d-dimer History of hypertension hypertensive cardiovascular disease Bilateral pleural effusion Plan: Continue afterload reducing agent Chest x-ray in a.m. Continue patient on high flow oxygen with airvo, aim for saturation 90% and above Decadron 6 mg IV q12 Continue Lovenox 40 mg IV every 12 IV REMdesivir for 5 days Status post Convalescent plasma Monitor clinical course closely further recommendations pending plan of care as per clinical response of the patient Monitor renal functions closely if creatinine continued to rise may need to stop the VERONA inhibitor
[2020-11-29] MEDS: ONDANSETRON 4 MG/2 ML VIAL IVP PRN (11:21)
[2020-11-29] MEDS: REMDESIVIR 100 MG in SODIUM CHLORIDE 0.9% 250 ML IVPB SCH (11:22)
[2020-11-29 11:27] LABS: Glucose,Whole Blood 278 mg/dL (75-99)
--- NOTE | 2020-11-29 11:54 | PN ---
PROGRESS NOTE Mr. Pastor is a 45-year-old male with no prior cardiac history, presented with evidence of Covid 19 pneumonia associated with symptoms of dyspnea, was found to have severe cardiomyopathy with severely impaired systolic function and at that time, he had mild troponin elevation as well as evidence of renal dysfunction. His repeat renal function returned to baseline. He continues to have symptoms of dyspnea as well as cough and mild nausea. He denies any symptoms of chest pain. He denies any dizziness or palpitation. His echocardiogram performed at the time of his admission revealed an ejection fraction of 20-25 percent with mild mitral and tricuspid regurgitation. No evidence of pulmonary hypertension. He continues to be on lisinopril 2.5 mg daily, aspirin once a day, metoprolol tartrate 12.5 mg twice a day and spironolactone 25 mg daily. He is getting dexamethasone in addition to Remdesivir. PHYSICAL EXAMINATION: Blood pressure running in the 130s with a heart rate in the 80s, afebrile. LAB DATA: Revealed BUN and creatinine 37, 1.0, potassium 4.3. Hemoglobin of 15.3. The chest x- ray done 2 days ago revealed bilateral infiltrate. IMPRESSION: 1. Covid-19 pneumonia with associated dyspnea. 2. Severe cardiomyopathy, most likely acute myocarditis related to the viral infection. 3. Symptoms of nausea and abdominal pain, most likely related to the initial presentation. RECOMMENDATION: From the cardiac standpoint, I will increase the dose of his lisinopril to 5 mg daily and his metoprolol tartrate 25 mg twice a day. Continue to increase his level of activity. He will receive a dose of IV Lasix. We will follow his renal function and increase his activity and depending on his blood pressure response further adjustment of his failure medication will be made. The patient would require to be evaluated down the road with repeat echocardiogram to see if there is improvement and resolution of his systolic dysfunction. MMODL / IJN: [id number] /
[2020-11-29 13:28] LABS: Glucose,Whole Blood 270 mg/dL (75-99)
--- NOTE | 2020-11-29 14:45 | PN ---
PROGRESS NOTE Patient is seen for followup for acute kidney injury associated with underlying Covid 19 infection and pneumonia. Renal function has improved with creatinine down from 1.6 to 1.0 now. The patient is feeling better. He is sitting on a bedside chair. Respiratory status has improved. PHYSICAL EXAMINATION: On examination today, blood pressure 132/64, heart rate 81 per minute. He is afebrile. Examination of the legs shows no significant edema. Abdomen is soft, nontender. 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 Heart and lungs are not examined. LAB: Show sodium 131, potassium 4.3, chloride 102, BUN 37, creatinine 1.0, calcium 7.1, hemoglobin 15.3 g/dL. ASSESSMENT: 1. Acute kidney injury mostly acute tubular necrosis associated with underlying COVID- 19 infection, now improving. 2. Mild volume overload. We will give one dose of Lasix. 3. Cardiomyopathy probably viral myocarditis noted. Ejection fraction 20% to 25%. 4. COVID-19 pneumonia, status post Remdesivir maintained on steroids, Z-Les and zinc. 5. Acute hypoxic respiratory failure. Secondary to COVID-19 pneumonia. PLAN: IV Lasix x1. Encourage increased oral intake. Repeat labs in a.m. MMODL / IJN: [id number] /
[2020-11-29 15:55] LABS: Ferritin 1735.3 ng/mL (22.0-322.0)
[2020-11-29 16:01] LABS: Glucose,Whole Blood 282 mg/dL (75-99)
[2020-11-29 18:43] LABS: Glucose,Whole Blood 281 mg/dL (75-99)
[2020-11-29 20:02] LABS: Glucose,Whole Blood 269 mg/dL (75-99)
[2020-11-29] MEDS: METOPROLOL TARTRATE 25 MG TAB PO SCH (21:43)
[2020-11-29] MEDS: ALPRAZolam 0.25 MG TAB PO PRN (21:43)
[2020-11-29] MEDS: MELATONIN 5 MG TABLET PO SCH (21:43)
[2020-11-29] MEDS ORDERED: INSULIN DETEMIR (LEVEMIR) 100 UNIT/ML SYR SQ SCH (22:00)
[2020-11-29 22:17] LABS: Glucose,Whole Blood 285 mg/dL (75-99)
[2020-11-29 23:52] LABS: Glucose,Whole Blood 207 mg/dL (75-99)
[2020-11-30 01:55] LABS: Glucose,Whole Blood 183 mg/dL (75-99)
[2020-11-30] MEDS: INSULIN REGULAR 100 UNIT in SODIUM CHLORIDE 0.9% 100 ML IV SCH (02:00)
[2020-11-30 04:02] LABS: Glucose,Whole Blood 166 mg/dL (75-99)
[2020-11-30 06:16] LABS: Glucose,Whole Blood 187 mg/dL (75-99)
[2020-11-30] MEDS: PANTOPRAZOLE 40 MG TABLET PO SCH (07:28)
[2020-11-30 08:11] LABS: Glucose,Whole Blood 210 mg/dL (75-99)
[2020-11-30] MEDS: SPIRONOLACTONE 25 MG TAB PO SCH (08:14)
[2020-11-30] MEDS: ENOXAPARIN 40 MG/0.4 ML SYRINGE SQ SCH ×2 (08:14→21:07)
[2020-11-30] MEDS: CHOLECALCIFEROL 25 MCG (1000 IU) TABLET PO SCH (08:14)
[2020-11-30] MEDS: ALBUTEROL HFA INHALER INHALATION SCH ×4 (08:14→20:28)
[2020-11-30] MEDS: AZITHROMYCIN 500 MG TAB PO SCH (08:15)
[2020-11-30] MEDS: ASCORBIC ACID 500 MG TAB PO SCH ×3 (08:15→21:07)
[2020-11-30] MEDS: DEXAMETHASONE SOD PHOSPHATE 10 MG/ML 1 ML VIAL IV SCH ×2 (08:15→21:07)
[2020-11-30] MEDS: ASPIRIN 81 MG PO SCH (08:15)
[2020-11-30] MEDS: lisinopriL 5 MG TAB PO SCH (08:15)
[2020-11-30] MEDS: METOPROLOL TARTRATE 25 MG TAB PO SCH (08:15)
[2020-11-30] MEDS: ZINC SULFATE 220 MG CAP PO SCH (08:15)
[2020-11-30 08:40] LABS: African American GFR (CKD) >90 (>60 ml/min/1.73 sqM); Anion Gap 3 mmol/L; Blood Urea Nitrogen 34 mg/dL (9-20); Calcium 7.1 mg/dL (8.4-10.2); Carbon Dioxide 25 mmol/L (22-30); Chloride 101 mmol/L (98-107); Glucose 192 mg/dL (74-99); Non-African American GFR(CKD) >90 (>60 ml/min/1.73 sqM); Potassium 4.6 mmol/L (3.5-5.1); Sodium 129 mmol/L (137-145)
--- NOTE | 2020-11-30 09:05 | XR ---
EXAMINATION TYPE: XR chest 1V portable DATE OF EXAM: 11/30/2020 CLINICAL HISTORY: Difficulty breathing and covid progress study. TECHNIQUE: Single AP portable upright view of the chest is obtained. COMPARISON: Chest x-ray from 3 days earlier and older studies aerated FINDINGS: Bilateral multifocal opacities remain present greatest in the periphery of the mid to lowe r lungs. Cardiac silhouette size upper limits of normal. Small to tiny left pleural effusion slightly improved. Osseous structures are intact. IMPRESSION: Findings consistent with covid 19 infection remain present. Multifocal bilateral opacitie s remain present without significant interval change. Small to tiny left pleural effusion slightly le ss prominent versus prior.
[2020-11-30 10:09] LABS: Glucose,Whole Blood 288 mg/dL (75-99)
--- NOTE | 2020-11-30 10:11 | P.PN ---
Subjective 11/26/20 Evaluated 45-year-old male this a.m. Patient sitting in chair with high-flow supplemental oxygen-aivro @ 35 L; patient able to carry on a conversation with mild dyspnea noted. Patient continues endorse shortness of breath at rest, extreme dyspnea with exertion, chest discomfort, chills, nausea. 11/27/2020 Patient is currently resting in the bed comfortably. Patient states that she feels better today. Requiring Airvo with FiO2 60%. Pulmonary is on board. Patient is being continued dexamethasone, Lovenox and remdesivir. Patient does have cardiomyopathy. Ejection fraction 20 to 25%. Patient has been afebrile. No nausea vomiting or abdominal pain or diarrhea. Tolerating oral diet.. 11/28/2020 Patient is currently awake alert oriented x3. No complaints of chest pain. Shortness of breath is better. Patient is on airvo 50% FiO2. No complaints of chest pain. No fever no chills. Patient is being continued metoprolol, lisinopril and Aldactone. Continued on antibiotics and remdesivir course. On dexamethasone and Lovenox. Pulmonary and cardiology on board. No nausea vomiting abdominal pain or diarrhea. Tolerating oral diet. Subjective: 11/29/2020 This is a pleasant 45 years old male who presents with bilateral covid With pneumonia with possible superimposed bacterial infection with acute hypoxic respiratory failure also with application with acute dilated cardiomyopathy and possible Covid viral myocarditis with ejection fraction as low as 20-25%, thought secondary to Covid. Also patient with acute kidney injury which could be caused by the Covid infection patient is currently covered with Zithromax, ceftriaxone, also he is on Decadron, insulin drip for hyperglycemia also on Lovenox 40 mg twice a day. Is getting remdesivir , and status post convalescent plasma as per documentation Patient still shortness of breath although he feels some improvement. Also he has some coughing but no chest pain. Also he has some neck pain but no weakness or numbness.. No headache He had some heartburn and Protonix and Tums are provided. He had diarrhea but stopped. Appetite is low his oxygen saturation is 91% on 45% of airflow Patient rest of Vitas looks stable. CBC and BMP are stable of the edge is the same elevated. C-reactive protein coming down slowly falling down to 18 which is still elevated but improved 11/30/2020 Patient risk factors the past looks comparable to yesterday, his breathing is always slightly easier however he still needs 50 L of oxygen via high flow nasal cannula. He still has some coughing however his neck pain feels better with no numbness or weakness. His epigastric heartburn have resolved Vitals are stable. Sodium is slightly low at 129. Normal creatinine at 0.8. sugar control Chest x-ray: Persistent bilateral opacity with no significant interval change. Consistent with cold 19 infection. Rest of BMP is a stable University Counselor increase his lisinopril metoprolol also he is on IV Lasix. Blood pressure is stable as well as creatinine today. University Counselor and bridal gown fitter on the case. Continue with Zithromax, ceftriaxone, Decadron, insulin drip and Lovenox. Review of systems Chest wall tenderness of systems -CONSTITUTIONAL: No fever, no vitiligo. Positive for fatigue HEENT: No recent visual problems or hearing problems. Denied any sore throat. CARDIOVASCULAR: No orthopnea, PND, no palpitations, no syncope. PULMONARY: No shortness of breath, no cough, no hemoptysis. GASTROINTESTINAL: No diarrhea, no nausea, no vomiting, no abdominal pain. Normoactive bowel sounds. Active Medications Generic Name Dose Route Start Last Admin Trade Name Freq PRN Reason Stop Dose Admin Acetaminophen 650 mg 11/24/20 20:27 11/29/20 08:11 Acetaminophen Tab 325 Mg Tab PO 650 mg Q4HR PRN Administration Fever>101 Albuterol Sulfate 2 puff 11/25/20 08:00 11/30/20 08:14 Albuterol Hfa Inhaler INHALATION 2 puff RT-QID HEMANTH Administration Albuterol Sulfate 2 puff 11/26/20 01:42 11/26/20 01:47 Albuterol Hfa Inhaler INHALATION 2 puff RT-QID PRN Administration Shortness Of Breath Or Wheezing Alprazolam 0.25 mg 11/26/20 15:17 11/29/20 21:43 Alprazolam 0.25 Mg Tab PO 0.25 mg BID PRN Administration Anxiety Ascorbic Acid 1,000 mg 11/24/20 22:00 11/30/20 08:15 Ascorbic Acid 500 Mg Tab PO 1,000 mg TID HEMANTH Administration Aspirin 81 mg 11/25/20 09:00 11/30/20 08:15 Aspirin 81 Mg PO 81 mg DAILY HEMANTH Administration Azithromycin 500 mg 11/25/20 09:45 11/30/20 08:15 Azithromycin 500 Mg Tab PO 500 mg DAILY HEMANTH Administration Calcium Carbonate/Glycine 1,000 mg 11/29/20 07:59 11/29/20 17:45 Calcium Carbonate 500 Mg Chewable PO 1,000 mg QID PRN Administration Heartburn Cholecalciferol 50 mcg 11/24/20 21:00 11/30/20 08:14 Cholecalciferol 25 Mcg (1000 Iu) Tablet PO 50 mcg DAILY HEMANTH Administration Dexamethasone Sodium Phosphate 6 mg 11/25/20 09:00 11/30/20 08:15 Dexamethasone Sod Phosphate 10 Mg/Ml 1 Ml Vial IV 6 mg Q12H HEMANTH Administration Enoxaparin Sodium 40 mg 11/25/20 09:00 11/30/20 08:14 Enoxaparin 40 Mg/0.4 Ml Syringe SQ 40 mg BID HEMANTH Administration Guaifenesin/Dextromethorphan 1 each 11/26/20 15:12 11/26/20 20:05 Guaifenesin-Dm 600/30mg 1 Each Tab.Er.12h PO 1 each Q12HR PRN Administration Cough Ceftriaxone Sodium 1 gm/ 50 mls @ 100 mls/hr 11/25/20 09:45 11/30/20 08:14 Sodium Chloride IVPB 100 mls/hr Q24HR HEMANTH Administration Insulin Human Regular 100 unit 101 mls @ 0 mls/hr 11/25/20 21:30 11/30/20 10:08 / Sodium Chloride IV 6 units/hr .Q0M HEMANTH 6.06 mls/hr Titration Protocol Titrate Insulin Detemir 5 unit 11/29/20 22:00 11/29/20 21:57 Insulin Detemir (Levemir) 100 Unit/Ml Syr SQ 5 unit HS HEMANTH Administration Lisinopril 5 mg 11/30/20 09:00 11/30/20 08:15 Lisinopril 5 Mg Tab PO 5 mg DAILY HEMANTH Administration Melatonin 5 mg 11/24/20 22:15 11/29/20 21:43 Melatonin 5 Mg Tablet PO 5 mg HS HEMANTH Administration Metoprolol Tartrate 25 mg 11/29/20 21:00 11/30/20 08:15 Metoprolol Tartrate 25 Mg Tab PO 25 mg BID HEMANTH Administration Naloxone HCl 0.2 mg 11/24/20 18:37 Naloxone 0.4 Mg/Ml 1 Ml Vial IV Q2M PRN Opioid Reversal Ondansetron HCl 4 mg 11/27/20 01:35 11/29/20 11:21 Ondansetron 4 Mg/2 Ml Vial IVP 4 mg Q6HR PRN Administration Nausea And Vomiting Pantoprazole Sodium 40 mg 11/29/20 08:00 11/30/20 07:28 Pantoprazole 40 Mg Tablet PO 40 mg [id number] HEMANTH Administration Spironolactone 25 mg 11/25/20 09:00 11/30/20 08:14 Spironolactone 25 Mg Tab PO 25 mg DAILY HEMANTH Administration Zinc Sulfate 220 mg 11/25/20 21:00 11/30/20 08:15 Zinc Sulfate 220 Mg Cap PO 220 mg DAILY HEMANTH Administration Objective - Vital Signs Vital signs: Vital Signs Temp 97.9 F 11/30/20 08:06 Pulse 77 11/30/20 08:06 Resp 18 11/30/20 08:06 BP 123/77 11/30/20 08:06 Pulse Ox 93 L 11/30/20 08:20 Intake & Output 11/29/20 11/30/20 11/30/20 18:59 06:59 18:59 Intake Total 402.897 76.536 244.309 Output Total 1700 860 Balance -1297.103 -783.464 244.309 Weight 98 kg Intake: IV 20 Invasive Line 3 20 Intake, IV Titration 41.897 56.536 4.309 Amount Insulin Regular 100 unit 41.897 56.536 4.309 In Sodium Chloride 0.9% 100 ml @ Titrate IV .Q0M [facility] Rx#:[id number] Oral 361 240 Output: Urine 1700 860 Other: Voiding Method Urinal Urinal Urinal # Voids 1 - Exam GENERAL: The patient is alert and oriented x3, not in any acute distress. Well developed, well nourished. HEENT: Pupils are round and equally reacting to light. EOMI. No scleral icterus. No conjunctival pallor. Normocephalic, atraumatic. No pharyngeal erythema. No thyromegaly. CARDIOVASCULAR: S1 and S2 present. No murmurs, rubs, or gallops. -PULMONARY: Chest is clear to auscultation, bilateral scattered wheezing and crepitation ABDOMEN: Soft, nontender, nondistended, normoactive bowel sounds. No palpable organomegaly. MUSCULOSKELETAL: No joint swelling or deformity. EXTREMITIES: No cyanosis, clubbing, or pedal edema. NEUROLOGICAL: Gross neurological examination did not reveal any focal deficits. SKIN: No rashes. no petechiae. - Labs CBC & Chem 7: 11/29/20 07:02 11/30/20 07:22 Labs: Abnormal Lab Results - Last 24 Hours (Table) 11/29/20 11/29/20 11/29/20 Range/Units 07:02 11:26 13:27 Sodium (137-145) mmol/L BUN (9-20) mg/dL Glucose (74-99) mg/dL POC Glucose (mg/dL) 278 H 270 H (75-99) mg/dL Calcium (8.4-10.2) mg/dL Ferritin 1735.3 H (22.0-322.0) ng/mL 11/29/20 11/29/20 11/29/20 Range/Units 15:59 18:42 20:00 Sodium (137-145) mmol/L BUN (9-20) mg/dL Glucose (74-99) mg/dL POC Glucose (mg/dL) 282 H 281 H 269 H (75-99) mg/dL Calcium (8.4-10.2) mg/dL Ferritin (22.0-322.0) ng/mL 11/29/20 11/29/20 11/30/20 Range/Units 22:16 23:51 01:53 Sodium (137-145) mmol/L BUN (9-20) mg/dL Glucose (74-99) mg/dL POC Glucose (mg/dL) 285 H 207 H 183 H (75-99) mg/dL Calcium (8.4-10.2) mg/dL Ferritin (22.0-322.0) ng/mL 11/30/20 11/30/20 11/30/20 Range/Units 04:00 06:14 07:22 Sodium 129 L (137-145) mmol/L BUN 34 H (9-20) mg/dL Glucose 192 H (74-99) mg/dL POC Glucose (mg/dL) 166 H 187 H (75-99) mg/dL Calcium 7.1 L (8.4-10.2) mg/dL Ferritin (22.0-322.0) ng/mL 11/30/20 Range/Units 08:09 Sodium (137-145) mmol/L BUN (9-20) mg/dL Glucose (74-99) mg/dL POC Glucose (mg/dL) 210 H (75-99) mg/dL Calcium (8.4-10.2) mg/dL Ferritin (22.0-322.0) ng/mL Microbiology - Last 24 Hours (Table) 11/24/20 21:05 Blood Culture - Preliminary Blood No Growth after 120 hours Assessment and Plan Assessment: Acute COVID-19 virus pneumonia. Acute hypoxic respiratory failure secondary to Covid pneumonia. Possible underlying secondary bacterial pneumonia cannot be excluded. Acute CHF with ejection fraction 20 to 25%. Acute myocarditis/cardiomyopathy likely due to COVID-19 infection Hypertension Acute kidney injury Diabetes type 2 Plan: This is a pleasant 45 years old male who presents with Covid pneumonia and possible bacterial infection. New with antibiotic per ID team, currently on ceftriaxone and Zithromax. Continue with the cut drawn. Continue with Lovenox Continue with insulin and monitor glucose. Counts Protonix and Tums. Labs and medication were reviewed.. Continue same treatment. Continue with symptomatic treatment. Resume home medication. Monitor lytes and vitals. DVT and GI prophylaxis. Further recommendationsas per clinical course of the patient DVT prophylaxis: Subcutaneous Lovenox gi Prophylaxis: Ppi Prognosis is guarded
[2020-11-30] MEDS ORDERED: FUROSEMIDE 10 MG/ML 4 ML VIAL IV STA (12:07)
[2020-11-30 12:09] LABS: Glucose,Whole Blood 175 mg/dL (75-99)
--- NOTE | 2020-11-30 12:58 | PN ---
PROGRESS NOTE Mr. Mckinney is a 45-year-old male who presented with COVID-19 pneumonia. He was found to have severe cardiomyopathy. He is feeling better today, although he continues to have shortness of breath. He denies any chest pain. No dizziness. No palpitation. He continues to have a cough. He has no nausea. He has no arrhythmia. He continues to be in sinus mechanism. He continues to be at this time on aspirin once a day, Lovenox 40 mg subcu twice a day, lisinopril 5 mg daily, metoprolol tartrate 25 mg twice a day. PHYSICAL EXAMINATION: Blood pressure 123/70 with the heart rate in the 70s. LAB DATA: Lab data revealed BUN and creatinine 34 and 0.89, potassium 4.6, sodium 129. IMPRESSION: 1. COVID-19 pneumonia. 2. Severe cardiomyopathy, most likely related to COVID-19. RECOMMENDATION: I will increase the dose of his beta vince. Continue the rest of his medical regimen. Increase his activity gradually. If his blood pressure remains stable, then I will increase the dose of his lisinopril. The patient will need to be followed as an outpatient to see if there is an improvement in his systolic function. I have discussed those findings with the patient. MMODL / IJN: [id number] /
[2020-11-30 14:15] LABS: Glucose,Whole Blood 274 mg/dL (75-99)
--- NOTE | 2020-11-30 14:29 | PN ---
PROGRESS NOTE Patient is seen for followup for acute kidney injury. His renal function has improved. Creatinine down to 0.89 from peak of 1.8. Patient has underlying COVID-19 pneumonia. He remains on high-flow oxygen. Overall, he states he is feeling about the same as yesterday. He also has underlying cardiomyopathy with ejection fraction noted at 20% to 25%, which is most likely associated with underlying viral infection and viral myocarditis. EXAMINATION: On examination today, blood pressure 123/77, heart rate 77 per minute. Patient is afebrile. No evidence of edema of lower extremities. COP EXAMINER exam grossly intact. LABS: Labs show sodium 129, potassium 4.6, chloride 101, BUN 34, creatinine 0.89, calcium 7.1. ASSESSMENT: 1. Acute kidney injury, cardiorenal as well as secondary to underlying COVID infection, currently improved. 2. COVID-19 pneumonia, status post remdesivir, maintained on steroids and also Zithromax. 3. Hyponatremia, mostly hypervolemic. I will repeat a dose of IV Lasix today. The patient is encouraged to increase oral intake, particularly protein. 4. Cardiomyopathy, most likely viral myocarditis, maintained on VERONA inhibitors and Aldactone. PLAN: Repeat IV Lasix. Check 25-hydroxy vitamin D level. Continue with VERONA inhibitors. Repeat labs in a.m. MMODL / IJN: [id number] /
[2020-11-30 16:06] LABS: Glucose,Whole Blood 201 mg/dL (75-99)
--- NOTE | 2020-11-30 16:49 | CDI ---
Documentation Clarification Form Date: 11/30/2020 04:31:01 PM From: Laurel Kam CCS, CCDS Admit Date: 11/24/2020 07:39:00 PM Patient Name: Dawit Mckinney Visit Number: [id number] Discharge Date: ATTENTION: The Clinical Documentation Specialists (CDI) and [facility] Coding Staff appreciate your assistance in clarifying documentation. Please respond to the clarification below the line at the bottom and electronically sign. The CDI & [facility] Coding staff will review the response and follow-up if needed. Please note: Queries are made part of the Legal Health Record. If you have any questions, please contact the author of this message via ITS. Dr. Zachariah Grier. Sheet: CHF is documented in the Attending Progress Notes on 11/27 through 11/30: "Acute CHF with ejection fraction 20-25%." Per the 11/24 ED Note: "Heart failure is not excluded" per the 11/24 CXR. Per the 11/27 Nephrology Consult: Congestive Heart Failure, ejection fraction noted to be 20-25% on this admission and possibly related to the underlying infection. Possible congestive heart failure, consider adding diuretic down the road depending on his respiratory status." History/Risk Factors Per the 11/25 History & Physical patient's Past Medical History: Asthma, Diabetes Mellitus Type II Non-Insulin Dependent, Hypertension and Morbid Obesity. Clinical Indicators: Presented to the ED on 11/24 with SOB, Low O2 and + COVID, tested at Urgent Care. Per the 11/25 History & Physical Assessment: Acute hypoxic respiratory failure due to COVID 19 Pneumonia, Possible Bacterial Pneumonia, ANTONIO, DM II, Elevated Inflammatory Markers, Bilateral Pleural Effusions. VS 11/24: T 98.8 - 102.2, P 88 - 103, R 18 - 24, BP 133/82, PO 89 RA - 94 4Lnc. BMI: 32.9 LAB 11/24: Lymph 0.6, Fibrinogen 657, D Dimer 1.17, Na 126, Cl 92, BUN 41, Creatinine 1.65, Glucose 398, Calcium 7.4, Ferritin 937.8, LDH 823, Troponin 0.079, CRP 89.3, Total Protein 5.5, Albumin 2.9, Procalcitonin 0.54 11/24 COVID POSITIVE 11/24 BNP 2360 11/24 CXR: Bilateral pneumonia with pleural effusions. Normal sized heart. This could relate to RDS. Heart failure not excluded. 11/24 CT Chest: No evidence of pulmonary embolism. Extensive bilateral pulmonary infiltrates and bilateral pleural effusions consistent with pneumonia. Echocardiogram Results 11/25: Mild LVH, Left ventricular systolic severely impaired w/EF 20-25%, Mild MR, Mild TR, Trivial pericardial effusion. Treatment 11/24: IV Zofran, IV fluid 1,000 mls @ 75 mls/hr q3H, po Vit D3, po Hexadrol, Lovenox sq, Vit C, po Melatonin 11/25: INH Ventolin, IV Lasix, IV Decadron, IV Rocephin, IV Remdesivir, po Orazinc, Transfused one unit Convalescent Plasma 11/25 Cardiology Consult: COVID 19 Pneumonia, Acute Hypoxic Respiratory Failure, Bilateral pleural effusions on Xray, Myocarditis/Inflammatory Cardiomyopathy, EF 20-25%, secondary to COVID. Mildly elevated troponins, secondary to COVID 19, no evidence of ACS. In your professional opinion, can you please clarify the acuity and type of CHF if known? Heart Failure is ruled out Heart Failure is ruled in: o Systolic Heart Failure: Acute Chronic Acute on Chronic Unable to Determine Other, please specify (Last Revision: January 2018) Acute systolic CHF MTDD
--- NOTE | 2020-11-30 16:59 | CDI ---
Documentation Clarification Form Date: 11/30/2020 04:51:35 PM From: Laurel Kam CCS, CCDS Admit Date: 11/24/2020 07:39:00 PM Patient Name: Dawit Mckinney Visit Number: [id number] Discharge Date: ATTENTION: The Clinical Documentation Specialists (CDI) and [facility] Coding Staff appreciate your assistance in clarifying documentation. Please respond to the clarification below the line at the bottom and electronically sign. The CDI & [facility] Coding staff will review the response and follow-up if needed. Please note: Queries are made part of the Legal Health Record. If you have any questions, please contact the author of this message via ITS. Dr. Zachariah Grier. Sheet: The patient is admitted with COVID 19 Pneumonia and possible bacterial pneumonia with Acute hypoxic respiratory failure and Acute Kidney Injury. History/Risk Factors Per the 11/25 History & Physical patient's Past Medical History: Asthma, Diabetes Mellitus Type II Non-Insulin Dependent, Hypertension and Morbid Obesity. Clinical Indicators: Presented to the ED on 11/24 with SOB, Low O2 and + COVID, tested at Urgent Care. Per the 11/25 History & Physical Assessment: Acute hypoxic respiratory failure due to COVID 19 Pneumonia, Possible Bacterial Pneumonia, ANTONIO, DM II, Elevated Inflammatory Markers, Bilateral Pleural Effusions. VS 11/24: T 98.8 - 102.2, P 88 - 103, R 18 - 24, BP 133/82, PO 89 RA - 94 4Lnc. BMI: 32.9 VS 11/25: T 100.1, P 73, R 18 (SOB), BP 107/76, PO 92 4Lnc LAB 11/24: Lymph 0.6, Fibrinogen 657, D Dimer 1.17, Na 126, Cl 92, BUN 41, Creatinine 1.65, Glucose 398, Calcium 7.4, Ferritin 937.8, LDH 823, Troponin 0.079, CRP 89.3, Total Protein 5.5, Albumin 2.9, Procalcitonin 0.54 11/24 COVID POSITIVE 11/24 BNP 2360 11/25 LAB: WBC 4.0, Neut 3.5, Lymph 0.3, Fibrinogen 575, D Dimer 0.91, Na 128, Anion Gap 12.10, BUN 46, Creatinine 1.8, GFR 44.5, Glucose 305, Calcium 7.4, Ferritin 1130.1, AST 58, LDH 380, Troponin 0.095, CRP 10.4, Total Protein 4.6, Albumin 3.10, Globulin 1.5 11/24 CXR: Bilateral pneumonia with pleural effusions. Normal sized heart. This could relate to RDS. Heart failure not excluded. 11/24 CT Chest: No evidence of pulmonary embolism. Extensive bilateral pulmonary infiltrates and bilateral pleural effusions consistent with pneumonia. Echocardiogram Results 11/25: Mild LVH, Left ventricular systolic severely impaired w/EF 20-25%, Mild MR, Mild TR, Trivial pericardial effusion. Treatment 11/24: IV Zofran, IV fluid 1,000 mls @ 75 mls/hr q3H, po Vit D3, po Hexadrol, Lovenox sq, Vit C, po Melatonin 11/25: INH Ventolin, IV Lasix, IV Decadron, IV Rocephin, IV Remdesivir, po Orazinc, Transfused one unit Convalescent Plasma In your professional opinion, please clarify if these findings signify one of the following conditions, whether the condition is POA, and cause, if known: Sepsis Severe Sepsis Other, please specify Unable to determine Present on Admission o Yes o No Identify the (suspected) organism Link or clarify if there is associated (due to/with): o Organ failure (Last Revision: January 2018) No sepsis. Only fever, no leukocytosis, no tachycardia MTDD
[2020-11-30 18:08] LABS: Glucose,Whole Blood 112 mg/dL (75-99)
[2020-11-30 19:00] LABS: Glucose,Whole Blood 140 mg/dL (75-99)
[2020-11-30 21:03] LABS: Glucose,Whole Blood 202 mg/dL (75-99)
[2020-11-30] MEDS: MELATONIN 5 MG TABLET PO SCH (21:07)
[2020-11-30] MEDS: METOPROLOL TARTRATE 50 MG TAB PO SCH (21:07)
[2020-11-30] MEDS: INSULIN DETEMIR (LEVEMIR) 100 UNIT/ML SYR SQ SCH (21:58)
[2020-11-30] MEDS: ALPRAZolam 0.25 MG TAB PO PRN (21:59)
[2020-11-30 23:01] LABS: Glucose,Whole Blood 217 mg/dL (75-99)
[2020-12-01 01:00] LABS: Glucose,Whole Blood 177 mg/dL (75-99)
[2020-12-01 03:04] LABS: Glucose,Whole Blood 161 mg/dL (75-99)
[2020-12-01 05:02] LABS: Glucose,Whole Blood 157 mg/dL (75-99)
[2020-12-01] MEDS: PANTOPRAZOLE 40 MG TABLET PO SCH (06:56)
[2020-12-01 07:03] LABS: Glucose,Whole Blood 169 mg/dL (75-99)
[2020-12-01] MEDS: ALBUTEROL HFA INHALER INHALATION SCH ×4 (07:55→21:12)
[2020-12-01 08:00] LABS: African American GFR (CKD) >90 (>60 ml/min/1.73 sqM); Anion Gap 4 mmol/L; Blood Urea Nitrogen 33 mg/dL (9-20); Calcium 7.4 mg/dL (8.4-10.2); Carbon Dioxide 30 mmol/L (22-30); Chloride 96 mmol/L (98-107); Glucose 145 mg/dL (74-99); Non-African American GFR(CKD) 88 (>60 ml/min/1.73 sqM); Potassium 4.9 mmol/L (3.5-5.1); Sodium 130 mmol/L (137-145)
[2020-12-01] MEDS: ENOXAPARIN 40 MG/0.4 ML SYRINGE SQ SCH ×2 (08:31→21:27)
[2020-12-01] MEDS: SPIRONOLACTONE 25 MG TAB PO SCH (08:31)
[2020-12-01] MEDS: lisinopriL 5 MG TAB PO SCH (08:31)
[2020-12-01] MEDS: CHOLECALCIFEROL 25 MCG (1000 IU) TABLET PO SCH (08:31)
[2020-12-01] MEDS: DEXAMETHASONE SOD PHOSPHATE 10 MG/ML 1 ML VIAL IV SCH ×2 (08:31→21:27)
[2020-12-01] MEDS: METOPROLOL TARTRATE 50 MG TAB PO SCH ×2 (08:31→21:27)
[2020-12-01] MEDS: AZITHROMYCIN 500 MG TAB PO SCH (08:31)
[2020-12-01] MEDS: ASCORBIC ACID 500 MG TAB PO SCH ×3 (08:31→21:28)
[2020-12-01] MEDS: ASPIRIN 81 MG PO SCH (08:31)
[2020-12-01] MEDS: ZINC SULFATE 220 MG CAP PO SCH (08:31)
--- NOTE | 2020-12-01 09:28 | P.PN ---
Subjective 11/26/20 Evaluated 45-year-old male this a.m. Patient sitting in chair with high-flow supplemental oxygen-aivro @ 35 L; patient able to carry on a conversation with mild dyspnea noted. Patient continues endorse shortness of breath at rest, extreme dyspnea with exertion, chest discomfort, chills, nausea. 11/27/2020 Patient is currently resting in the bed comfortably. Patient states that she feels better today. Requiring Airvo with FiO2 60%. Pulmonary is on board. Patient is being continued dexamethasone, Lovenox and remdesivir. Patient does have cardiomyopathy. Ejection fraction 20 to 25%. Patient has been afebrile. No nausea vomiting or abdominal pain or diarrhea. Tolerating oral diet.. 11/28/2020 Patient is currently awake alert oriented x3. No complaints of chest pain. Shortness of breath is better. Patient is on airvo 50% FiO2. No complaints of chest pain. No fever no chills. Patient is being continued metoprolol, lisinopril and Aldactone. Continued on antibiotics and remdesivir course. On dexamethasone and Lovenox. Pulmonary and cardiology on board. No nausea vomiting abdominal pain or diarrhea. Tolerating oral diet. Subjective: 11/29/2020 This is a pleasant 45 years old male who presents with bilateral covid With pneumonia with possible superimposed bacterial infection with acute hypoxic respiratory failure also with application with acute dilated cardiomyopathy and possible Covid viral myocarditis with ejection fraction as low as 20-25%, thought secondary to Covid. Also patient with acute kidney injury which could be caused by the Covid infection patient is currently covered with Zithromax, ceftriaxone, also he is on Decadron, insulin drip for hyperglycemia also on Lovenox 40 mg twice a day. Is getting remdesivir , and status post convalescent plasma as per documentation Patient still shortness of breath although he feels some improvement. Also he has some coughing but no chest pain. Also he has some neck pain but no weakness or numbness.. No headache He had some heartburn and Protonix and Tums are provided. He had diarrhea but stopped. Appetite is low his oxygen saturation is 91% on 45% of airflow Patient rest of Vitas looks stable. CBC and BMP are stable of the edge is the same elevated. C-reactive protein coming down slowly falling down to 18 which is still elevated but improved 11/30/2020 Patient risk factors the past looks comparable to yesterday, his breathing is always slightly easier however he still needs 50 L of oxygen via high flow nasal cannula. He still has some coughing however his neck pain feels better with no numbness or weakness. His epigastric heartburn have resolved Vitals are stable. Sodium is slightly low at 129. Normal creatinine at 0.8. sugar control Chest x-ray: Persistent bilateral opacity with no significant interval change. Consistent with cold 19 infection. Rest of BMP is a stable Keeper Helper increase his lisinopril metoprolol also he is on IV Lasix. Blood pressure is stable as well as creatinine today. Keeper Helper and director of special services on the case. Continue with Zithromax, ceftriaxone, Decadron, insulin drip and Lovenox. 12/01/2020 Patient breathing today is better, he was still on 15 L oxygen via a fall and pl an to switch him to high flow nasal cannula if he tolerates states. On examination he has better air entry on both sides with some of crepitation.vessel vitals are stable He denies abdominal pain or diarrhea or chest pain. No neck pain. He complains from some leg swelling but on exam there is no pitting edema he got a dose of Lasix yesterday. his sugar is controlled and we will switch his insulin drip to sliding scale and continue with Levemir 8 units at bedside and adjusted accordingly. Patient is a known diabetic and he was on metformin which he dropped taking it because lack of insurance creatinine is at the reference range at 1.0. 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 And the recommend follow-up with cardiology in 1 week Review of systems -CONSTITUTIONAL: No fever, no vitiligo. Positive for fatigue HEENT: No recent visual problems or hearing problems. Denied any sore throat. CARDIOVASCULAR: No orthopnea, PND, no palpitations, no syncope. PULMONARY: No Chest wall tenderness, no hemoptysis. GASTROINTESTINAL: No diarrhea, no nausea, no vomiting, no abdominal pain. Normoactive bowel sounds. Active Medications Generic Name Dose Route Start Last Admin Trade Name Freq PRN Reason Stop Dose Admin Acetaminophen 650 mg 11/24/20 20:27 11/29/20 08:11 Acetaminophen Tab 325 Mg Tab PO 650 mg Q4HR PRN Administration Fever>101 Albuterol Sulfate 2 puff 11/25/20 08:00 12/01/20 07:55 Albuterol Hfa Inhaler INHALATION 2 puff RT-QID HEMANTH Administration Albuterol Sulfate 2 puff 11/26/20 01:42 11/26/20 01:47 Albuterol Hfa Inhaler INHALATION 2 puff RT-QID PRN Administration Shortness Of Breath Or Wheezing Alprazolam 0.25 mg 11/26/20 15:17 11/30/20 21:59 Alprazolam 0.25 Mg Tab PO 0.25 mg BID PRN Administration Anxiety Ascorbic Acid 1,000 mg 11/24/20 22:00 12/01/20 08:31 Ascorbic Acid 500 Mg Tab PO 1,000 mg TID HEMANTH Administration Aspirin 81 mg 11/25/20 09:00 12/01/20 08:31 Aspirin 81 Mg PO 81 mg DAILY HEMANTH Administration Azithromycin 500 mg 11/25/20 09:45 12/01/20 08:31 Azithromycin 500 Mg Tab PO 500 mg DAILY HEMANTH Administration Calcium Carbonate/Glycine 1,000 mg 11/29/20 07:59 11/29/20 17:45 Calcium Carbonate 500 Mg Chewable PO 1,000 mg QID PRN Administration Heartburn Cholecalciferol 50 mcg 11/24/20 21:00 12/01/20 08:31 Cholecalciferol 25 Mcg (1000 Iu) Tablet PO 50 mcg DAILY HEMANTH Administration Dexamethasone Sodium Phosphate 6 mg 11/25/20 09:00 12/01/20 08:31 Dexamethasone Sod Phosphate 10 Mg/Ml 1 Ml Vial IV 6 mg Q12H HEMANTH Administration Enoxaparin Sodium 40 mg 11/25/20 09:00 12/01/20 08:31 Enoxaparin 40 Mg/0.4 Ml Syringe SQ 40 mg BID HEMANTH Administration Guaifenesin/Dextromethorphan 1 each 11/26/20 15:12 11/26/20 20:05 Guaifenesin-Dm 600/30mg 1 Each Tab.Er.12h PO 1 each Q12HR PRN Administration Cough Ceftriaxone Sodium 1 gm/ 50 mls @ 100 mls/hr 11/25/20 09:45 12/01/20 08:32 Sodium Chloride IVPB 100 mls/hr Q24HR HEMANTH Administration Insulin Aspart 0 unit 12/01/20 12:30 Insulin Aspart (Novolog) 100 Unit/Ml Vial SQ ACHS [facility] Protocol Insulin Detemir 8 unit 11/30/20 21:00 11/30/20 21:58 Insulin Detemir (Levemir) 100 Unit/Ml Syr SQ 8 unit HS [facility] Administration Lisinopril 5 mg 11/30/20 09:00 12/01/20 08:31 Lisinopril 5 Mg Tab PO 5 mg DAILY HEMANTH Administration Melatonin 5 mg 11/24/20 22:15 11/30/20 21:07 Melatonin 5 Mg Tablet PO 5 mg HS [facility] Administration Metoprolol Tartrate 50 mg 11/30/20 21:00 12/01/20 08:31 Metoprolol Tartrate 50 Mg Tab PO 50 mg BID HEMANTH Administration Naloxone HCl 0.2 mg 11/24/20 18:37 Naloxone 0.4 Mg/Ml 1 Ml Vial IV Q2M PRN Opioid Reversal Ondansetron HCl 4 mg 11/27/20 01:35 11/29/20 11:21 Ondansetron 4 Mg/2 Ml Vial IVP 4 mg Q6HR PRN Administration Nausea And Vomiting Pantoprazole Sodium 40 mg 11/29/20 08:00 12/01/20 06:56 Pantoprazole 40 Mg Tablet PO 40 mg AC-[id number] [facility] Administration Spironolactone 25 mg 11/25/20 09:00 12/01/20 08:31 Spironolactone 25 Mg Tab PO 25 mg DAILY [facility] Administration Zinc Sulfate 220 mg 11/25/20 21:00 12/01/20 08:31 Zinc Sulfate 220 Mg Cap PO 220 mg DAILY HEMANTH Administration Objective - Vital Signs Vital signs: Vital Signs Temp 97.7 F 12/01/20 08:28 Pulse 72 12/01/20 08:28 Resp 18 12/01/20 08:28 BP 120/70 12/01/20 08:28 Pulse Ox 93 L 12/01/20 08:28 Intake & Output 11/30/20 12/01/20 12/01/20 18:59 06:59 18:59 Intake Total 841.478 20.932 239.131 Output Total 1350 700 Balance -508.522 20.932 -460.869 Weight 92 kg Intake: Intake, IV Titration 41.478 20.932 3.131 Amount Insulin Regular 100 unit 41.478 20.932 3.131 In Sodium Chloride 0.9% 100 ml @ Titrate IV .Q0M [facility] Rx#:[id number] Oral 800 236 Output: Urine 1350 700 Other: Voiding Method Urinal Urinal Urinal # Voids 1 - Exam GENERAL: The patient is alert and oriented x3, not in any acute distress. Well developed, well nourished. HEENT: Pupils are round and equally reacting to light. EOMI. No scleral icterus. No conjunctival pallor. Normocephalic, atraumatic. No pharyngeal erythema. No thyromegaly. CARDIOVASCULAR: S1 and S2 present. No murmurs, rubs, or gallops. -PULMONARY: Chest is clear to auscultation, bilateral scattered wheezing and crepitation ABDOMEN: Soft, nontender, nondistended, normoactive bowel sounds. No palpable organomegaly. MUSCULOSKELETAL: No joint swelling or deformity. EXTREMITIES: No cyanosis, clubbing, or pedal edema. NEUROLOGICAL: Gross neurological examination did not reveal any focal deficits. SKIN: No rashes. no petechiae. - Labs CBC & Chem 7: 11/29/20 07:02 12/01/20 07:11 Labs: Abnormal Lab Results - Last 24 Hours (Table) 11/30/20 11/30/20 11/30/20 Range/Units 07:22 10:07 12:07 Sodium (137-145) mmol/L Chloride (98-107) mmol/L BUN (9-20) mg/dL Glucose (74-99) mg/dL POC Glucose (mg/dL) 288 H 175 H (75-99) mg/dL Calcium (8.4-10.2) mg/dL Vitamin D 25-Hydroxy 13.6 L (30.0-100.0) ng/mL 11/30/20 11/30/20 11/30/20 Range/Units 14:13 16:03 18:07 Sodium (137-145) mmol/L Chloride (98-107) mmol/L BUN (9-20) mg/dL Glucose (74-99) mg/dL POC Glucose (mg/dL) 274 H 201 H 112 H (75-99) mg/dL Calcium (8.4-10.2) mg/dL Vitamin D 25-Hydroxy (30.0-100.0) ng/mL 11/30/20 11/30/20 11/30/20 Range/Units 18:58 21:01 22:58 Sodium (137-145) mmol/L Chloride (98-107) mmol/L BUN (9-20) mg/dL Glucose (74-99) mg/dL POC Glucose (mg/dL) 140 H 202 H 217 H (75-99) mg/dL Calcium (8.4-10.2) mg/dL Vitamin D 25-Hydroxy (30.0-100.0) ng/mL 12/01/20 12/01/20 12/01/20 Range/Units 00:58 03:02 04:59 Sodium (137-145) mmol/L Chloride (98-107) mmol/L BUN (9-20) mg/dL Glucose (74-99) mg/dL POC Glucose (mg/dL) 177 H 161 H 157 H (75-99) mg/dL Calcium (8.4-10.2) mg/dL Vitamin D 25-Hydroxy (30.0-100.0) ng/mL 12/01/20 12/01/20 Range/Units 07:01 07:11 Sodium 130 L (137-145) mmol/L Chloride 96 L (98-107) mmol/L BUN 33 H (9-20) mg/dL Glucose 145 H (74-99) mg/dL POC Glucose (mg/dL) 169 H (75-99) mg/dL Calcium 7.4 L (8.4-10.2) mg/dL Vitamin D 25-Hydroxy (30.0-100.0) ng/mL Microbiology - Last 24 Hours (Table) 11/24/20 21:05 Blood Culture - Final Blood No Growth after 144 hours Assessment and Plan Assessment: Acute COVID-19 virus pneumonia. Acute hypoxic respiratory failure secondary to Covid pneumonia. Possible underlying secondary bacterial pneumonia cannot be excluded. Acute CHF with ejection fraction 20 to 25%. Acute myocarditis/cardiomyopathy likely due to COVID-19 infection Hypertension Acute kidney injury Diabetes type 2 Plan: This is a pleasant 45 years old male who presents with Covid pneumonia and possible bacterial infection. New with antibiotic per ID team, currently on ceftriaxone and Zithromax. Continue with the cut drawn. Continue with Lovenox Continue with insulin and monitor glucose. Counts Protonix and Tums. Labs and medication were reviewed.. Continue same treatment. Continue with symptomatic treatment. Resume home medication. Monitor lytes and vitals. DVT and GI prophylaxis. Further recommendations as per clinical course of the patient DVT prophylaxis: Subcutaneous Lovenox gi Prophylaxis: Ppi Prognosis is guarded
--- NOTE | 2020-12-01 10:24 | PN ---
PROGRESS NOTE Mr. Mckinney is a 45-year-old male who presented with evidence of COVID-19 pneumonia and was found to have severe cardiomyopathy. He has continued to be dyspneic and quite fatigued. He continues to be on high-flow oxygen. He denies any chest discomfort. No dizziness. No palpitation. He denies any nausea. He is in sinus mechanism. He continues to be at this time on aspirin once a day, Lovenox 40 mg subcu q.12 hours, lisinopril 5 mg daily, metoprolol tartrate 50 mg twice a day, Aldactone 25 mg daily. PHYSICAL EXAMINATION: Blood pressure 120/70 with the heart rate in the 70s. EXTREMITIES: No edema. LAB DATA: Lab data revealed BUN and creatinine 33 and 1.03. Potassium 4.9. His sodium is 130. IMPRESSION: 1. COVID-19 pneumonia with severe hypoxemia requiring high-flow oxygen. 2. Severe cardiomyopathy related to the COVID-19 infection. RECOMMENDATION: We will continue present therapy. Increase his level of activity. Follow his renal function to see if we can increase the dose of his VERONA inhibitor further. He will require repeat echocardiogram in 4 to 6 weeks to see if there is any improvement in his systolic function. MMODL / IJN: [id number] /
--- NOTE | 2020-12-01 11:41 | P.PN ---
Subjective Progress Note Date: 12/01/20 Principal diagnosis: Acute hypoxic respiratory failure due to covert 19 pneumonia Associated bacterial pneumonia secondary cannot be excluded Acute kidney injury Uncontrolled diabetes Elevated d-dimer History of hypertension hypertensive cardiovascular disease Bilateral pleural effusion 12/01/2020, patient seen eval examined during the rounds labs reviewed medications reviewed care plan discussed, patient is down to 8 L high flow oxygen, chest x-ray performed yesterday remains stable no significant change has been noted, patient appears to be less short of breath, BUN/creatinine remains stable 33 and 1.03, patient finished 5 day course of IV REMdesivir, also remains on the IV broad-spectrum antibiotics along with Decadron and Lovenox 11/29/2020, continued to be short of breath, and denies any chest pain mild nonproductive cough is present, oxygen saturation 97% on 35 L 45% oxygen and aerosolized Ammann labs from today reviewed in BUN/creatinine improved to 37 1.0, sugar also improved 202 range, inflammatory parameters however continued to be opted with C-reactive protein showed downward trend 11/28/2020, patient seen eval examined during the rounds labs reviewed medications reviewed, remains on high flow and aerosolized oxygen with airvo 60%, FiO2 decreased to 55, patient remains on insulin drip for glucose varying from 250-350, last chest x-ray performed yesterday remains stable bilateral diffuse pneumonia, patient remains on afterload reducing agent, labs from today's remains pending, she remains on therapy with IV REM doesn't wear, Decadron, broad-spectrum antibiotics 11/26/2020, patient seen eval examined during the rounds labs reviewed me dications reviewed care plan discussed, patient remains on the high flow oxygen with aerosolized 35 L 60%, chest x-ray showed slightly improvement bilaterally, patient also noted to have a significant finding of LV dysfunction and his ejection fraction is 20-25%, mild diastolic dysfunction noted as well, patient has received a single dose of diuretics creatinine remained stable, oxygen saturation is 91-95%, patient refused prone positioning but agree able for sleeping on the sides This is a 45-year-old male with a history of pac-zivyewx-vjigkxvik diabetes mellitus hypertension and likely obstructive sleep apnea, patient is been having shortness of breath which developed into cough and increasing breathing difficulty for last 5 days, patient was diagnosed over positive in urgent care due to shortness of breath came into the hospital for further evaluation, 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, patient was hypoxic noted to have a saturation of 88-89% was admitted into the hospital with shortness of breath, significant labs are sodium of 126 BUN/creatinine is 4111.65, d-dimer is elevated, bilateral pneumonia with pleural effusion seen on chest x-ray, bilateral pleural effusion and extensive bilateral pulmonary infiltrate seen consistent with pneumonia on the computed tomography scan negative for pulmonary embolism, chest x-ray performed today continue show diffuse disease right more than the left, currently patient is on airvo 40 L, he is comfortable on that with the saturation 94-95% Objective - Vital Signs Vital signs: Vital Signs Temp 97.7 F 12/01/20 08:28 Pulse 72 12/01/20 08:28 Resp 18 12/01/20 08:28 BP 120/70 12/01/20 08:28 Pulse Ox 99 12/01/20 09:45 Intake & Output 11/30/20 12/01/20 12/01/20 18:59 06:59 18:59 Intake Total 841.478 20.932 239.131 Output Total 1350 700 Balance -508.522 20.932 -460.869 Weight 92 kg Intake: Intake, IV Titration 41.478 20.932 3.131 Amount Insulin Regular 100 unit 41.478 20.932 3.131 In Sodium Chloride 0.9% 100 ml @ Titrate IV .Q0M [facility] Rx#:[id number] Oral 800 236 Output: Urine 1350 700 Other: Voiding Method Urinal Urinal Urinal # Voids 1 - Exam - Constitutional General appearance: average body habitus, cooperative, disheveled - EENT Eyes: EOMI, PERRLA - Neck Neck: normal ROM Carotids: bilateral: upstroke normal Thyroid: bilateral: normal size - Respiratory Respiratory: bilateral: diminished, rales - Cardiovascular Rhythm: regular Heart sounds: normal: S1, S2 - Gastrointestinal General gastrointestinal: normal bowel sounds - Neurologic Neurologic: CNII-XII intact - Musculoskeletal Musculoskeletal: gait normal, generalized weakness, strength equal bilaterally - Psychiatric Psychiatric: A&O x's 3, appropriate affect, intact judgment & insight - Labs CBC & Chem 7: 11/29/20 07:02 12/01/20 07:11 Labs: Abnormal Lab Results - Last 24 Hours (Table) 11/30/20 11/30/20 11/30/20 Range/Units 07:22 12:07 14:13 Sodium (137-145) mmol/L Chloride (98-107) mmol/L BUN (9-20) mg/dL Glucose (74-99) mg/dL POC Glucose (mg/dL) 175 H 274 H (75-99) mg/dL Calcium (8.4-10.2) mg/dL Vitamin D 25-Hydroxy 13.6 L (30.0-100.0) ng/mL 11/30/20 11/30/20 11/30/20 Range/Units 16:03 18:07 18:58 Sodium (137-145) mmol/L Chloride (98-107) mmol/L BUN (9-20) mg/dL Glucose (74-99) mg/dL POC Glucose (mg/dL) 201 H 112 H 140 H (75-99) mg/dL Calcium (8.4-10.2) mg/dL Vitamin D 25-Hydroxy (30.0-100.0) ng/mL 11/30/20 11/30/20 12/01/20 Range/Units 21:01 22:58 00:58 Sodium (137-145) mmol/L Chloride (98-107) mmol/L BUN (9-20) mg/dL Glucose (74-99) mg/dL POC Glucose (mg/dL) 202 H 217 H 177 H (75-99) mg/dL Calcium (8.4-10.2) mg/dL Vitamin D 25-Hydroxy (30.0-100.0) ng/mL 12/01/20 12/01/20 12/01/20 Range/Units 03:02 04:59 07:01 Sodium (137-145) mmol/L Chloride (98-107) mmol/L BUN (9-20) mg/dL Glucose (74-99) mg/dL POC Glucose (mg/dL) 161 H 157 H 169 H (75-99) mg/dL Calcium (8.4-10.2) mg/dL Vitamin D 25-Hydroxy (30.0-100.0) ng/mL 12/01/20 Range/Units 07:11 Sodium 130 L (137-145) mmol/L Chloride 96 L (98-107) mmol/L BUN 33 H (9-20) mg/dL Glucose 145 H (74-99) mg/dL POC Glucose (mg/dL) (75-99) mg/dL Calcium 7.4 L (8.4-10.2) mg/dL Vitamin D 25-Hydroxy (30.0-100.0) ng/mL Microbiology - Last 24 Hours (Table) 11/24/20 21:05 Blood Culture - Final Blood No Growth after 144 hours Assessment and Plan Assessment: Acute hypoxic respiratory failure due to covert 19 pneumonia Acute dilated cardiomyopathy differential diagnoses covid 19 myocarditis/cardiomyopathy versus diffuse coronary artery disease given presence of multiple risk factors Associated bacterial pneumonia secondary Acute kidney injury, with improved renal function Uncontrolled diabetes Elevated d-dimer History of hypertension hypertensive cardiovascular disease Bilateral pleural effusion Plan: Continue afterload reducing agent Chest x-ray performed on November 30 reviewed and discussed with the patient Continue patient on high flow oxygen with oxygen to be titrated down imaging saturation 92% or above Decadron 6 mg IV q12 Continue Lovenox 40 mg IV every 12 Status post IV REMdesivir for 5 days Status post Convalescent plasma Monitor clinical course closely further recommendations pending plan of care as per clinical response of the patient Monitor renal functions closely if creatinine continued to rise may need to stop the VERONA inhibitor Time with Patient: Greater than 30
[2020-12-01 12:06] LABS: Glucose,Whole Blood 368 mg/dL (75-99)
[2020-12-01] MEDS: FUROSEMIDE 40 MG TAB PO SCH (12:12)
[2020-12-01] MEDS: INSULIN ASPART (NovoLOG) 100 UNIT/ML VIAL SQ SCH ×3 (12:13→21:28)
--- NOTE | 2020-12-01 12:59 | PN ---
PROGRESS NOTE The patient is seen for followup for acute kidney injury secondary to underlying pneumonia and COVID-19 infection. Renal function has improved with creatinine now staying at about 0.9 to 1 mg/dL. The patient also has underlying cardiomyopathy most likely viral myocarditis and is maintained on VERONA inhibitors. PHYSICAL EXAMINATION: On examination today, he is comfortable, denies any significant complaints. Blood pressure was 120/70. Maintained on 8 L nasal cannula. No evidence of edema noted lower extremities. 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 LABS: Labs show sodium 130, potassium 4.9, chloride 96, BUN 33, creatinine 1.03. ASSESSMENT: 1. Acute kidney injury, acute tubular necrosis, associated with underlying COVID-19 infection. Renal function has now improved. The patient has been receiving IV Lasix for the last 3 days. I will repeat another dose of Lasix today. 2. Hypervolemic hyponatremia, improved with diuresis. 3. Severe cardiomyopathy, most likely viral myocarditis, maintained on VERONA inhibitors. PLAN: Maintain daily dose of oral Lasix. Repeat labs in a.m. Continue treatment for COVID-19 pneumonia. MMODL / IJN: [id number] /
[2020-12-01 13:29] VITALS: BMI 30.8
[2020-12-01 17:04] LABS: Glucose,Whole Blood 186 mg/dL (75-99)
[2020-12-01 19:49] LABS: Glucose,Whole Blood 271 mg/dL (75-99)
[2020-12-01] MEDS: INSULIN DETEMIR (LEVEMIR) 100 UNIT/ML SYR SQ SCH (21:27)
[2020-12-01] MEDS: MELATONIN 5 MG TABLET PO SCH (21:28)
[2020-12-02 03:41] VITALS: TEMP 97.7
[2020-12-02 06:32] LABS: Glucose,Whole Blood 191 mg/dL (75-99)
[2020-12-02] MEDS: PANTOPRAZOLE 40 MG TABLET PO SCH (06:40)
[2020-12-02] MEDS: INSULIN ASPART (NovoLOG) 100 UNIT/ML VIAL SQ SCH (06:41)
[2020-12-02] MEDS ORDERED: metFORMIN 500 MG TAB PO SCH (07:30)
[2020-12-02 07:55] VITALS: BP 131/78; PULSE 74; RESP 20
[2020-12-02] MEDS: AZITHROMYCIN 500 MG TAB PO SCH (07:55)
[2020-12-02] MEDS: ZINC SULFATE 220 MG CAP PO SCH (07:55)
[2020-12-02] MEDS: FUROSEMIDE 40 MG TAB PO SCH (07:55)
[2020-12-02] MEDS: lisinopriL 5 MG TAB PO SCH (07:56)
[2020-12-02] MEDS: DEXAMETHASONE SOD PHOSPHATE 10 MG/ML 1 ML VIAL IV SCH (07:57)
[2020-12-02] MEDS: METOPROLOL TARTRATE 50 MG TAB PO SCH (07:57)
[2020-12-02] MEDS: ASCORBIC ACID 500 MG TAB PO SCH (07:57)
[2020-12-02] MEDS: CHOLECALCIFEROL 25 MCG (1000 IU) TABLET PO SCH (07:57)
[2020-12-02] MEDS: ASPIRIN 81 MG PO SCH (07:57)
[2020-12-02] MEDS: SPIRONOLACTONE 25 MG TAB PO SCH (07:57)
[2020-12-02] MEDS: ENOXAPARIN 40 MG/0.4 ML SYRINGE SQ SCH (07:58)
[2020-12-02] MEDS: ALBUTEROL HFA INHALER INHALATION SCH ×2 (08:05→11:29)
[2020-12-02 08:15] LABS: African American GFR (CKD) >90 (>60 ml/min/1.73 sqM); Anion Gap 3 mmol/L; Blood Urea Nitrogen 32 mg/dL (9-20); C Reactive Protein <5.0 mg/L (<10.0); Calcium 7.8 mg/dL (8.4-10.2); Carbon Dioxide 27 mmol/L (22-30); Chloride 97 mmol/L (98-107); Glucose 191 mg/dL (74-99); LDH 1174 U/L (313-618); Non-African American GFR(CKD) >90 (>60 ml/min/1.73 sqM); Sodium 127 mmol/L (137-145)
[2020-12-02] MEDS ORDERED: lisinopriL 5 MG TAB PO SCH (09:00)
--- NOTE | 2020-12-02 09:40 | PN ---
PROGRESS NOTE Mr. Mckinney is a 45-year-old male who presented with COVID-19 pneumonia. He was found to have evidence of severe cardiomyopathy. He is feeling better today. His breathing is better. He is on nasal cannula oxygen. He is ambulating, going to the bathroom, feeling stronger. He denies any chest pain. He denies any dizziness or palpitation. He denies any nausea. He continues to be at this time on metoprolol tartrate 50 mg twice a day, lisinopril 5 mg daily, aspirin once a day. He is on metformin. PHYSICAL EXAMINATION: Blood pressure running in the 130s with the heart rate in the 70s. LAB DATA: Lab data revealed BUN and creatinine 32 and 0.94. Potassium of 5.0. His sodium is 127, which is lower than yesterday. His C-reactive protein is less than 5. His LDH is 1174, which has gone down. IMPRESSION: 1. Evidence of COVID-19 pneumonia, improving. 2. Cardiomyopathy, most likely related to the COVID-19. 3. Renal failure, improved. RECOMMENDATION: I will increase the dose of his lisinopril 5 mg twice a day. From the cardiac standpoint, he should be able to be discharged home and followed as an outpatient with Dr. Louis to evaluate his cardiomyopathy as an outpatient and guide his treatment. I have discussed with the patient those findings and recommendations. MMKENNETHL / KARENN: [id number] /
[2020-12-02 12:38] LABS: Ferritin 1727.7 ng/mL (22.0-322.0)
--- NOTE | 2020-12-02 15:37 | PN ---
PROGRESS NOTE Patient is seen for followup for acute kidney injury, hyponatremia. Patient is leaving AMA. His renal function has improved. However, sodium is staying slightly on the lower side. PHYSICAL EXAMINATION: On examination today, blood pressure was 131/78, heart rate 74 per minute. He is afebrile. No evidence of edema of lower extremities. 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 Abdomen is soft, nontender. Lungs and heart are not examined. LABS: Labs show sodium 127, potassium 5.0, CO2 is 27, BUN 32, creatinine 0.9, calcium 7.8, ferritin was high and LDH was 1174. ASSESSMENT: 1. Acute kidney injury secondary to underlying COVID-19 infection, currently improved. 2. Hypervolemic hyponatremia, maintained on Lasix. 3. Congestive heart failure, viral myocarditis. 4. COVID-19 pneumonia requiring oxygen currently down to about 2-3 L. PLAN: Patient is advised salt and fluid restriction. Continue with Lasix. He is advised to come back to the hospital if he has any worsening shortness of breath. MMODL / IJN: [id number] /
--- NOTE | 2020-12-02 21:13 | P.DS ---
Providers Date of admission: 11/24/20 19:39 Attending physician: Norris Franco Consults: 11/24/20 19:08 Consult Physician Stat Consulting Provider: Danish Lundberg Consult Reason/Comments: COVID 19 + Do you want consulting provider notified?: Yes 11/24/20 21:51 Consult Physician Urgent Consulting Provider: Eulalio Crawford Consult Reason/Comments: elevated troponin Do you want consulting provider notified?: Yes, Notify in am 11/26/20 19:47 Consult Physician Urgent Consulting Provider: Jeanna Barrett Consult Reason/Comments: ANTONIO Do you want consulting provider notified?: Yes, Notify in am Primary care physician: Norris Franco Hospital Course: Please note this is a discharge summary as patient was not discharged and the left by signing leaving AGAINST MEDICAL ADVICE Diagnoses: Acute COVID-19 virus pneumonia. Acute hypoxic respiratory failure secondary to Covid pneumonia. Possible underlying secondary bacterial pneumonia cannot be excluded. Acute CHF with ejection fraction 20 to 25%. Acute myocarditis/cardiomyopathy likely due to COVID-19 infection Noncompliance to medical recommendation and therapeutic, and patient signed leaving AMA Hypertension Hyponatremia Acute kidney injury mostly due to Covid infection Diabetes type 2, hyperglycemia Hospital course: This is a pleasant 45 years old male who presents with bilateral covid With pneumonia with possible superimposed bacterial infection with acute hypoxic respiratory failure also with complication of acute dilated cardiomyopathy and possible Covid viral myocarditis with ejection fraction as low as 20-25%, thought secondary to Covid. Also patient with acute kidney injury which could be caused by the Covid infection. Patient has been evaluated by several consultants including pulmonary team, manager acute and clean up worker. He was treated with Zithromax, ceftriaxone, also Decadron, insulin drip for hyperglycemia , Lovenox 40 mg twice a day. He received remdesivir , and status post convalescent plasma initially patient needed to high dose of oxygen about 45 L/M with treatment his respiratory distress significantly improved and on the day of discharge his oxygen requirement dropped to 2 L/M, on the room air his oxygen saturation was 86% and he qualify for home oxygen. With this significant improvement in his respiratory status patient was adamant to leave today Of note since 2 days ago patient was asking me to discharge him, and that time he was on 15 L/m of oxygen, stating that he has pills to be and all his money are in [place] taste in his home and there is nobody else can help, explained to him at that time he is not ready for discharge. Today as stated he was so fixed on Levaquin although I explained to him he is not medically ready for discharge, for example he still needs Treatment for his oxygen and dropping sodium to 127, sugar control etc. Risks of leaving AGAINST MEDICAL ADVICE are explained to him including risk of respiratory depression, worsening infection, myocardial infarction, cardiac arrhythmia, stroke, organ dysfunction and/or stent he verbalized understanding and acceptance but he refused to stay. Based upon my evaluation patient has capacity to make medical decisions. When I asked the patient is there anything I can do to prevent him from leaving AMA he answered "No". However try to help the patient I discussed with our business case analyst Leonela and oxygen provided for him to take it at home. Also provided for him scripts for medication, see discharge instruction, with emphasis and I told him that he should not consider these medication enough to protect him from further complication or bad outcome from leaving a day and he verbalized understanding as well On the day of discharge patient is alert awake and oriented to time or place and person, he knows why he is in the hospital, he answered questions appropriately and follow commands, his mentation looks intact, he is not confused or delirious Patient was found stable and can be discharged home however he needs follow-up as an outpatient. Patient was instructed to follow up with PCP within one week and patient agrees, also he was instructed to follow up with clean up worker, director custom as an outpatient Physical exam Gen: patient is a AAOx3, no distress CVS: S1-S2, RRR, no murmur -Lungs: B/L CTA, no wheezing. Bilateral mild crepitation Abdomen: soft, no distention, no tenderness, positive bowel sounds Extremity: no leg edema or induration Time spent more than 35 minutes Patient Condition at Discharge: Stable Plan - Discharge Summary Discharge Rx Participant: No New Discharge Prescriptions: New Spironolactone [Aldactone] 25 mg PO DAILY #30 tab Aspirin 81 mg PO DAILY #30 chew metFORMIN HCL [Glucophage] 500 mg PO BID-W/MEALS #60 tab Furosemide [Lasix] 40 mg PO DAILY #30 tab Metoprolol Tartrate [Lopressor] 50 mg PO BID #60 tab Zinc Sulfate [Orazinc] 220 mg PO DAILY #30 cap Pantoprazole [Protonix] 40 mg PO AC-BRKFST #15 tablet. Albuterol Inhaler [Ventolin Hfa Inhaler] 2 puff INHALATION QID #1 vial Ascorbic Acid [Vitamin C] 1,000 mg PO BID #60 tab Cholecalciferol [Vitamin D3 (25 Mcg = 1000 Iu)] 50 mcg PO DAILY #30 tablet lisinopriL [Zestril] 5 mg PO BID #60 tab Discharge Medication List Albuterol Inhaler [Ventolin Hfa Inhaler] 2 puff INHALATION QID #1 vial 12/02/20 [Rx] Ascorbic Acid [Vitamin C] 1,000 mg PO BID #60 tab 12/02/20 [Rx] Aspirin 81 mg PO DAILY #30 chew 12/02/20 [Rx] Cholecalciferol [Vitamin D3 (25 Mcg = 1000 Iu)] 50 mcg PO DAILY #30 tablet 12/02/20 [Rx] Furosemide [Lasix] 40 mg PO DAILY #30 tab 12/02/20 [Rx] Metoprolol Tartrate [Lopressor] 50 mg PO BID #60 tab 12/02/20 [Rx] Pantoprazole [Protonix] 40 mg PO AC-BRKFST #15 tablet. 12/02/20 [Rx] Spironolactone [Aldactone] 25 mg PO DAILY #30 tab 12/02/20 [Rx] Zinc Sulfate [Orazinc] 220 mg PO DAILY #30 cap 12/02/20 [Rx] lisinopriL [Zestril] 5 mg PO BID #60 tab 12/02/20 [Rx] metFORMIN HCL [Glucophage] 500 mg PO BID-W/MEALS #60 tab 12/02/20 [Rx] Follow up Appointment(s)/Referral(s): Norris Franco MD [Primary Care Provider] - 1-2 days Eulalio Crawford MD [STAFF PHYSICIAN] - 1 Week Jeanna Barrett MD [STAFF PHYSICIAN] - 1 Week [facility] [NON-STAFF] - Danish Lundberg MD [STAFF PHYSICIAN] - 1 Week Activity/Diet/Wound Care/Special Instructions: You can get a free Glucometer and low cost testing supplies from [facility]: [id number], [place] [address] Discharge Disposition: Left Against Medical Advice
== END 2020-12-02 12:43 | disposition left against medical advice (07) | DRG 177 ==
LOC: EC 15:52 → 4SSUR 19:39 → 3SCARD 22:17
PROVIDERS: ADMIT Family Medicine; ATTEND Family Medicine
PROC: XW033E5 Introduction of Remdesivir Anti-infective into Peripheral Vein, Percutaneous Approach, New Technology Group 5 (ICD-10-PCS; principal; 2020-11-25)
PROC: XW13325 Transfusion of Convalescent Plasma (Nonautologous) into Peripheral Vein, Percutaneous Approach, New Technology Group 5 (ICD-10-PCS; 2020-11-25)
PROC: 5A0955A Assistance with Respiratory Ventilation, Greater than 96 Consecutive Hours, High Flow/Velocity Cannula (ICD-10-PCS; 2020-11-25)
DX: U07.1 COVID-19 (principal); J12.82 Pneumonia due to coronavirus disease 2019; J96.01 Acute respiratory failure with hypoxia; N17.0 Acute kidney failure with tubular necrosis; I50.21 Acute systolic (congestive) heart failure; J15.9 Unspecified bacterial pneumonia; I40.0 Infective myocarditis; E87.1 Hypo-osmolality and hyponatremia; J91.8 Pleural effusion in other conditions classified elsewhere; I95.9 Hypotension, unspecified; I11.0 Hypertensive heart disease with heart failure; B33.24 Viral cardiomyopathy; E11.65 Type 2 diabetes mellitus with hyperglycemia; E66.01 Morbid (severe) obesity due to excess calories; G47.33 Obstructive sleep apnea (adult) (pediatric); I08.1 Rheumatic disorders of both mitral and tricuspid valves; J45.909 Unspecified asthma, uncomplicated; F41.9 Anxiety disorder, unspecified; Z68.31 Body mass index [BMI] 31.0-31.9, adult; M54.2 Cervicalgia; Z53.21 Procedure and treatment not carried out due to patient leaving prior to being seen by health care provider; Z71.3 Dietary counseling and surveillance; Z83.511 Family history of glaucoma; Z81.8 Family history of other mental and behavioral disorders
CPT/HCPCS: 36415; 71045; 71046; 71275; 80048; 80053; 82306; 82570; 82728; 83615; 83735; 83880; 84145; 84300; 84484; 85025; 85379; 85384; 85610; 85730; 86140; 86850; 86900; 86901; 87040; 87635; 93005; 93306; 94640; 94760; 96361; 96372; 96374; 99285

== ENCOUNTER 2022-02-14 15:26 | Emergency (ER) | payer OTHER ==
--- NOTE | 2022-02-14 15:33 | ED ---
Chest Pain HPI - General Stated Complaint: Chest pain Time Seen by Provider: 02/14/22 15:32 - History of Present Illness Initial Comments: 47-year-old male with past medical history of asthma, diabetes, hypertension, Covid who presents to the emergency department with chest pain. States that it is been going on for the past couple of days however he was at work today attempting to lift something heavy when the pain got worse. Describes as a pressure sensation in his chest. He admits to significant cardiac history. When he was hospitalized last year for Covid he had an echo performed which demonstrated an EF of 20-25%. He was discharged on Lasix 40 mg daily. Patient states he's been taking his medications as directed. He denies fevers. Does admit to a cough. No other alleviating, precipitating or modifying factors - Related Data Previous Rx's Medication Instructions Recorded Albuterol Inhaler [Ventolin Hfa 2 puff INHALATION QID #1 vial 12/02/20 Inhaler] Ascorbic Acid [Vitamin C] 1,000 mg PO BID #60 tab 12/02/20 Aspirin 81 mg PO DAILY #30 chew 12/02/20 Cholecalciferol [Vitamin D3 (25 50 mcg PO DAILY #30 tablet 12/02/20 Mcg = 1000 Iu)] Furosemide [Lasix] 40 mg PO DAILY #30 tab 12/02/20 Metoprolol Tartrate [Lopressor] 50 mg PO BID #60 tab 12/02/20 Pantoprazole [Protonix] 40 mg PO AC-BRKFST #15 tablet.dr 12/02/20 Spironolactone [Aldactone] 25 mg PO DAILY #30 tab 12/02/20 Zinc Sulfate [Orazinc] 220 mg PO DAILY #30 cap 12/02/20 lisinopriL [Zestril] 5 mg PO BID #60 tab 12/02/20 metFORMIN HCL [Glucophage] 500 mg PO BID-W/MEALS #60 tab 12/02/20 Allergies Allergy/AdvReac Type Severity Reaction Status Date / Time No Known Allergies Allergy Verified 02/14/22 15:34 Review of Systems ROS Statement: Those systems with pertinent positive or pertinent negative responses have been documented in the HPI. ROS Other: All systems not noted in ROS Statement are negative. Past Medical History Past Medical History: Asthma, Diabetes Mellitus, Hypertension History of Any Multi-Drug Resistant Organisms: None Reported Past Surgical History: No Surgical Hx Reported Past Anesthesia/Blood Transfusion Reactions: No Reported Reaction Past Psychological History: No Psychological Hx Reported Smoking Status: Never smoker Past Alcohol Use History: None Reported Past Drug Use History: None Reported - Past Family History Father Family Medical History: No Reported History Mother Family Medical History: No Reported History Additional Family Medical History / Comment(s): glaucoma, manic depression, 2006 General Exam General appearance: alert, in no apparent distress Head exam: Present: atraumatic, normocephalic, normal inspection Eye exam: Present: normal appearance, PERRL, EOMI. Absent: scleral icterus, conjunctival injection, periorbital swelling ENT exam: Present: normal exam, mucous membranes moist Neck exam: Present: normal inspection. Absent: tenderness, meningismus, lymphadenopathy Respiratory exam: Present: normal lung sounds bilaterally. Absent: respiratory distress, wheezes, rales, rhonchi, stridor Cardiovascular Exam: Present: regular rate, normal rhythm, normal heart sounds. Absent: systolic murmur, diastolic murmur, rubs, gallop, clicks GI/Abdominal exam: Present: soft, normal bowel sounds. Absent: distended, tenderness, guarding, rebound, rigid Extremities exam: Present: normal inspection, full ROM, normal capillary refill. Absent: tenderness, pedal edema, joint swelling, calf tenderness Back exam: Present: normal inspection Neurological exam: Present: alert, oriented X3, CN II-XII intact Psychiatric exam: Present: normal affect, normal mood Skin exam: Present: warm, dry, intact, normal color. Absent: rash Course Vital Signs 02/14/22 15:32 Temperature 97.5 F L Pulse Rate 75 Respiratory 16 Rate Blood Pressure 154/101 O2 Sat by Pulse 99 Oximetry Chest Pain [facility] Patient was seen and evaluated in triage. EKG, laboratory studies and chest x- ray were performed. Patient was called to be brought back to his exam room and it was found that the patient had left from the waiting room without any results. Disposition Clinical Impression: Chest pain Disposition: Left Against Medical Advice Condition: Undetermined Referrals: Norris Franco MD [Primary Care Provider] - 1-2 days
[2022-02-14 15:34] VITALS: BP 154/101; PULSE 75; RESP 16; TEMP 97.5
--- NOTE | 2022-02-14 16:02 | XR ---
EXAMINATION TYPE: XR chest 2V DATE OF EXAM: 02/14/2022 COMPARISON: 11/30/2020 HISTORY: 47-year-old male with chest pain TECHNIQUE: PA and lateral views FINDINGS: Heart upper limits of normal in size. Mild interstitial prominence and mild peribronchial cuffing. No consolidation or pleural effusion. Mild hyperinflation. IMPRESSION: 1. Borderline heart size. 2. Interstitial prominence and mild hyperinflation. Correlate for possible mild COPD. 3. Additionally, correlate to exclude bronchitis or underlying asthma.
== END 2022-02-14 18:05 | disposition left against medical advice (07) ==
LOC: EC 15:26
DX: R07.89 Other chest pain (principal); J45.909 Unspecified asthma, uncomplicated; E11.9 Type 2 diabetes mellitus without complications; I10 Essential (primary) hypertension
CPT/HCPCS: 71046; 93005; 99285

== ENCOUNTER → 2022-03-14 | Outpatient (CLI) | payer OTHER ==
--- NOTE | 2022-03-15 07:14 | US ---
EXAMINATION TYPE: US kidneys/renal and bladder DATE OF EXAM: 03/14/2022 COMPARISON: NONE CLINICAL HISTORY: N17.9 ACUTE KIDNEY FAILURE. Acute kidney injury. EXAM MEASUREMENTS: Right Kidney: 12.7 x 6.1 x 5.8 cm Left Kidney: 12.5 x 6.1 x 6.3 cm Right Kidney: Appears slightly enlarged versus upper limits. No hydronephrosis or masses seen, Appear s heterogeneous. Left Kidney: Appears slightly enlarged versus upper limits. No hydronephrosis or masses seen Bladder: Appears anechoic. Bilateral Jets seen: Yes IMPRESSION: No ultrasound evidence for traumatic injury to the kidneys.
== END | disposition home or self-care (01) ==
LOC: RADUSWWP 16:07
PROVIDERS: ATTEND Family Medicine
DX: N17.9 Acute kidney failure, unspecified (principal)
CPT/HCPCS: 76770

== ENCOUNTER → 2022-05-11 | Outpatient (CLI) | payer OTHER ==
--- NOTE | 2022-05-11 12:29 | XR ---
EXAMINATION TYPE: AP view pelvis and 2 views each hip DATE OF EXAM: 05/11/2022 COMPARISON: NONE HISTORY: 47-year-old male M1 6.9, osteoarthritis of the hips, bilateral hip pain for 2 months FINDINGS: SI joints appear symmetric and intact as do the pubic symphysis. Hip joint space is maintained. Tiny os acetabuli or degenerative labral ossifications on the right. Both hips show superior and anterior femoral head neck junction and deformity. Fibrocystic change at the head neck junction measuring 1.2 cm on the left. No acute fracture, subluxation, dislocation. 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 Some corresponding fibrocystic change on the le ft and either os acetabuli or degenerative labral ossification on the right. Correlate for underlying CAM-type femoral acetabular impingement syndrome. Orthopedic referral may be beneficial.
== END | disposition home or self-care (01) ==
LOC: RADXRMAIN 09:55
PROVIDERS: ATTEND Family Medicine
DX: M16.0 Bilateral primary osteoarthritis of hip (principal)
CPT/HCPCS: 73521

== ENCOUNTER → 2022-07-27 | Outpatient (CLI) | payer OTHER ==
--- NOTE | 2022-07-28 07:18 | XR ---
EXAMINATION TYPE: XR chest 2V DATE OF EXAM: 07/27/2022 5:02 PM COMPARISON: Chest radiographs from 02/14/2022 TECHNIQUE: XR chest 2V Frontal and lateral views of the chest. CLINICAL INDICATION:Male, 47 years old with history of R07.81 PLEURODYNIA; FINDINGS: Lungs/Pleura: There is no evidence of pleural effusion, focal consolidation, or pneumothorax. Pulmonary vascularity: Unremarkable. Heart/mediastinum: Cardiomediastinal silhouette is unremarkable. Musculoskeletal: No acute osseous pathology. IMPRESSION: No acute cardiopulmonary disease/process.
== END | disposition home or self-care (01) ==
LOC: RADXRMAIN 16:53
PROVIDERS: ATTEND Family Medicine
DX: R07.81 Pleurodynia (principal)
CPT/HCPCS: 71046

== ENCOUNTER → 2022-08-15 | Outpatient (CLI) | payer OTHER ==
--- NOTE | 2022-08-15 13:33 | FL ---
EXAMINATION TYPE: FL UGI w esophagus DATE OF EXAM: 08/15/2022 10:14 AM CLINICAL INDICATION:Male, 47 years old with history of R10.13; COMPARISON: Chest radiograph 07/27/2022. TECHNIQUE: The procedure was explained and patient history elicited. All patient questions were ans wered prior to start of procedure. A veterinary pathologist radiograph of the abdomen was also reviewed. Multiple flu oroscopic spot images of the esophagus, stomach and duodenum were obtained following ingestion of liq uid barium and EZ-gas crystals. Fluoroscopic time:1.21 min Fluoroscopic images: 0 Radiographs taken: 141 FINDINGS: Upper GI examination: The veterinary pathologist abdominal radiograph demonstrates a normal bowel gas pattern without dilated loops of small or large bowel. There is no evidence for organomegaly or pneumoperitoneum. No abnormal calcificat ions. The visualized osseous structures are intact. The esophagus appears unremarkable without evidence of focal stricture, ulceration or abnormal outpou mari. No hiatal hernia was visualized. No evidence of gastroesophageal reflux was seen when the p atient was instructed to bear down. Tertiary contractions were visualized. The stomach and duodenum demonstrate a normal course and contour. There is no evidence of focal gastric or duodenal ulceratio n, stricture, or abnormal outpouching. IMPRESSION: 1. Normal appearance of the stomach. 2. Mild esophageal dysmotility.
== END | disposition home or self-care (01) ==
LOC: RADFLMAIN 09:32
PROVIDERS: ATTEND Family Medicine
DX: R10.13 Epigastric pain (principal)
CPT/HCPCS: 74240

== ENCOUNTER → 2023-02-22 | Outpatient (CLI) | payer OTHER ==
[2023-02-22 14:55] LABS: Basophils # (A) 0.08 X 10*3/uL (0.00-0.10); Eosinophils # (A) 0.37 X 10*3/uL (0.04-0.35); Eosinophils % (A) 4.4 %; HCT 41.5 % (39.6-50.0); HGB 13.7 g/dL (13.0-17.0); Immature Grans, Automated 0.2 %; Lymphocytes # (A) 1.39 X 10*3/uL (0.90-5.00); Lymphocytes % (A) 16.6 %; MCH 29.8 pg (27.0-32.0); MCV 90.2 fL (80.0-97.0); Mean Platelet Volume 11.1 fL (9.5-12.2); Monocytes # (A) 0.78 X 10*3/uL (0.20-1.00); Monocytes % (A) 9.3 %; NRBC Per 100 WBC 0 /100 WBCS (0.0-0.0); Neutrophils # (A) 5.74 X 10*3/uL (1.80-7.70); Neutrophils % (A) 68.5 %; Platelet Count 275 X 10*3/uL (140-440); RDW 14.3 % (11.5-14.5); WBC 8.38 X 10*3/uL (4.50-10.00)
[2023-02-22 21:17] LABS: ALT 22 U/L (10-49); AST 24 U/L (14-35); African American GFR (CKD) 41.9 (60.0-200.0); Albumin 3.1 g/dL (3.8-4.9); Albumin/Globulin Ratio 1.19 (1.60-3.17); Alkaline Phosphatase 87 U/L (41-126); BUN/Creat Ratio 14.86 Ratio (12.00-20.00); Blood Urea Nitrogen 31.2 mg/dL (9.0-27.0); Calcium 8.5 mg/dL (8.7-10.3); Carbon Dioxide 21.5 mmol/L (20.0-27.5); Chloride 109 mmol/L (96-109); Chol/HDL Ratio 3.35 Ratio; Globulin 2.6 g/dL (1.6-3.3); Glucose 148 mg/dL (70-110); LDL Cholesterol,Calculated 121.3 mg/dL (0.0-131.0); Non-African American GFR(CKD) 36.1 (60.0-200.0); Potassium 4.4 mmol/L (3.5-5.5); Sodium 142 mmol/L (135-145); Total Protein 5.7 g/dL (6.2-8.2)
== END | disposition home or self-care (01) ==
LOC: LABWHC1 10:32
PROVIDERS: ATTEND Family Medicine
DX: E11.42 Type 2 diabetes mellitus with diabetic polyneuropathy (principal); N52.9 Male erectile dysfunction, unspecified
CPT/HCPCS: 36415; 80053; 80061; 83036; 84403; 85025

== ENCOUNTER → 2023-06-21 | Outpatient (CLI) | payer OTHER ==
[2023-06-21 15:11] LABS: ALT 19 U/L (10-49); AST 23 U/L (14-35); Albumin/Globulin Ratio 1.25 Ratio (1.60-3.17); Alkaline Phosphatase 104 U/L (41-126); BUN/Creat Ratio 11.75 Ratio (12.00-20.00); Blood Urea Nitrogen 28.2 mg/dL (9.0-27.0); Calcium 8.3 mg/dL (8.7-10.3); Carbon Dioxide 22.5 mmol/L (21.6-31.8); Chloride 112 mmol/L (96-109); Chol/HDL Ratio 2.69 Ratio; Globulin 2.4 d/dL (1.6-3.3); Glucose 150 mg/dL (70-110); LDL Cholesterol,Calculated 97.3 mg/dL (0.0-131.0); Sodium 145 mmol/L (135-145); Total Bilirubin <0.2 mg/dL (0.3-1.2); Total Protein 5.4 d/dL (6.2-8.2)
[2023-06-21 15:12] LABS: T4, Free (Free Thyroxine) 0.97 ng/dL (0.80-1.80)
[2023-06-21 15:59] LABS: Basophils # (A) 0.06 X 10*3/uL (0.00-0.10); Basophils % (A) 0.6 %; Eosinophils # (A) 0.31 X 10*3/uL (0.04-0.35); Eosinophils % (A) 3.3 %; HCT 41.4 % (39.6-50.0); HGB 13.1 d/dL (13.0-17.0); Lymphocytes # (A) 1.26 X 10*3/uL (0.90-5.00); Lymphocytes % (A) 13.2 %; MCH 28.8 pg (27.0-32.0); MCHC 31.6 d/dL (32.0-37.0); Mean Platelet Volume 11.7 FL (9.5-12.2); Monocytes % (A) 10.5 %; NRBC Per 100 WBC 0 X 10*3/uL (0.00-0.01); Neutrophils # (A) 6.86 X 10*3/uL (1.80-7.70); Platelet Count 240 X 10*3/uL (140-440); RBC 4.55 X 10*6/uL (4.40-5.60); RDW 13.5 % (11.5-14.5); WBC 9.53 X 10*3/uL (4.50-10.00)
== END | disposition home or self-care (01) ==
LOC: LABWHC1 08:37
PROVIDERS: ATTEND Family Medicine
DX: E11.42 Type 2 diabetes mellitus with diabetic polyneuropathy (principal)
CPT/HCPCS: 36415; 80053; 80061; 83036; 84153; 84439; 84443; 85025

== ENCOUNTER → 2025-03-12 | Outpatient (CLI) | payer OTHER ==
--- NOTE | 2025-03-12 08:29 | CT ---
EXAMINATION TYPE: CT abdomen pelvis wo con DATE OF EXAM: 03/12/2025 COMPARISON: NONE CLINICAL INDICATION: Male, 50 years old with history of R31.29 microhematuria, Microhematuria, Stage 5 renal disease, TECHNIQUE: CT scan of the abdomen and pelvis is performed , patient injected with mL of ., (none if empty) Oral contrast used: without Oral Contrast (none if empty) CT DLP: 1038 mGycm, Automated exposure control for dose reduction was used. FINDINGS: Within the limitations of a noncontrast study, the following observations are made. LUNG BASES: There is a small to moderate-sized right-sided pleural effusion. LIVER/GB: No significant abnormality is appreciated. PANCREAS: No significant abnormality is seen. SPLEEN: No significant abnormality is seen. ADRENALS: No significant abnormality is seen. KIDNEYS: No renal stones or hydronephrosis is seen bilaterally. Symmetric mild to moderate perinephr ic fluid is nonspecific finding. Mild wall thickening of the urinary bladder up to 9 mm. No intralumi nal calculus. BOWEL: Normal appearing appendix from the cecum. PROSTATE/SEMINAL VESICLES: No gross abnormality seen. LYMPH NODES: No greater than 1cm abdominal or pelvic lymph nodes are appreciated. OSSEOUS STRUCTURES: No significant abnormality is seen. OTHER: Small fat-containing left inguinal hernia. Small fat-containing umbilical hernia. IMPRESSION: 1. Mild wall thickening of the urinary bladder could reflect product of a acute cystitis in appropria te clinical setting. Correlate clinically. Otherwise source of microhematuria not identified. If symp toms persist further investigation with CT urogram would be advised. 2. Small to moderate-sized right pleural effusion partially imaged. Correlate clinically. [facility], , 03/12/2025 8:27 AM
== END | disposition home or self-care (01) ==
LOC: RADCTMAIN 07:45
PROVIDERS: ATTEND Urology
DX: J90 Pleural effusion, not elsewhere classified (principal); R31.29 Other microscopic hematuria; N32.89 Other specified disorders of bladder; N28.9 Disorder of kidney and ureter, unspecified
CPT/HCPCS: 74176